=== PATIENT | male | born 1965 | race African-American/Black ===

== ENCOUNTER 2018-07-22 07:55 | Emergency (ER) | payer BC, OTHER ==
[2018-07-22] MEDS ORDERED: NA CHLORIDE 0.9% 1,000 ML ONE (08:28)
--- NOTE | 2018-07-22 08:41 | RAD REPORT ---
EXAM DESCRIPTION: CT - Head Brain Wo Cont - 07/22/2018 8:29 am CLINICAL HISTORY: Headache;Dizziness COMPARISON: February 2017 TECHNIQUE: Computed axial tomography of the head was obtained. IV contrast was not requested. All CT scans are performed using dose optimization technique as appropriate and may include automated exposure control or mA/KV adjustment according to patient size. FINDINGS: An intracranial bleed is not seen . The ventricles are normal in caliber. No extra-axial fluid collection is noted. Moderate low-density areas within periventricular, deep and subcortical white matter likely represent ischemic changes secondary to small vessel disease. Fluid within the sinuses/ mastoids is not seen. IMPRESSION: No acute intracranial abnormality is seen. If patient's symptoms persist MRI of the bra in would be recommended.
[2018-07-22 09:15] LABS: Absolute Lymphocytes (CBC) 3.1 K/uL (0.7-4.9); Absolute Monocytes 0.7 K/uL (0.1-1.3); Absolute Neutrophil 6.5 K/uL (1.8-8.0); Basophils % 1.1 % (0-1.3); Eosinophils % 1.9 % (0-4.4); Hematocrit 41.3 % (39.6-49.0); Lymphocytes % 29.6 % (15.3-44.8); MCH 27.1 pg (27.0-35.0); MCV 79.9 fL (80-100); MPV 8.4 fL (7.6-11.3); Monocytes % 6.4 % (3.3-12.3); RBC Red Blood Cell Count 5.17 M/uL (4.33-5.43)
[2018-07-22 09:48] LABS: Potassium 4.3 mmol/L (3.5-5.1)
[2018-07-22 10:16] LABS: Urine Blood NEGATIVE (NEG); Urine Glucose 2+ (NEG); Urine Protein NEGATIVE (NEG); Urine pH 5.5 (5.0-7.0)
[2018-07-22 10:21] LABS: Urine Bacteria <20 /HPF (NONE SEEN); Urine RBC <5 /HPF (NONE SEEN)
[2018-07-22 10:22] LABS: Urine Culture Reflex Order NOT NEEDED
--- NOTE | 2018-07-22 10:26 | EDPHYS ---
Physician Documentation [facility] Name: Erick Bosch Age: 52 yrs Sex: Male : 1965 Arrival Date: 07/22/2018 Time: 07:55 Bed 13 Private MD: Valdez Nogueira ED Physician Ozzy Vora HPI: 07/22 08:09 This 52 yrs old Black Male presents to ER via Ambulatory with complaints of Headache, rn Vomiting. 08:09 The patient complains of pain to the right base of the skull. The patient describes the rn headache as aching. Onset: The symptoms/episode began/occurred 3 day(s) ago. Associated signs and symptoms: Pertinent positives: dizziness, Pertinent negatives: fever, neck stiffness, vision changes, vision loss, weakness, vertigo. Severity of symptoms: At its worst the pain was mild, in the emergency department the pain is unchanged. Headache History: The patient has had previous headaches and this one is similar to previous episodes. The symptoms are alleviated by nothing. the symptoms are aggravated by nothing. The patient has experienced similar episodes in the past. Reports began 2-3 days ago with nausea/vomiting/diarrhea, has now gotten better, this AM woke up with headache, radiates to right neck and shoulder, has hx of neck problems, reports felt lightheaded and dizzy. Seen at [facility] last week for dizziness, states workup didn't reveal anything. Glucose has been high recently, 200s-400s.. Historical: - Allergies: 08:08 No Known Allergies; ss - Home Meds: 08:08 lisinopril 40 mg Oral tab 1 tab once daily [Active]; levemir 50 units once daily ss [Active]; novalog flexpen 12 units before every meal [Active]; gabapentin 300 mg oral cap daily [Active]; atorvastatin 80 mg oral tab 1 tab once daily [Active]; chlorthalidone 25 mg Oral tab 1 tab once daily [Active]; - PMHx: 08:08 Diabetes - IDDM; Hypertension; High Cholesterol; ss - Immunization history:: Adult Immunizations up to date. - Social history:: Smoking status: Patient/guardian denies using tobacco. - Ebola Screening: : Patient denies exposure to infectious person Patient denies travel to an Ebola-affected area in the 21 days before illness onset. - Family history:: not pertinent. - Hospitalizations: : Patient was recently seen at. ROS: 08:09 Constitutional: Negative for fever, chills, and weight loss, Eyes: Negative for injury, rn pain, redness, and discharge, Neck: Negative for injury, and swelling, Cardiovascular: Negative for chest pain, palpitations, and edema, Respiratory: Negative for shortness of breath, cough, wheezing, and pleuritic chest pain, Abdomen/GI: Negative for abdominal pain, and constipation, MS/Extremity: Negative for injury and deformity, Skin: Negative for injury, rash, and discoloration, Neuro: Negative for weakness, numbness, tingling, and seizure. Exam: 08:09 Constitutional: This is a well developed, well nourished patient who is awake, alert, rn and in no acute distress. Head/Face: Normocephalic, atraumatic. Eyes: Pupils equal round and reactive to light, extra-ocular motions intact. Lids and lashes normal. Conjunctiva and sclera are non-icteric and not injected. Cornea within normal limits. Periorbital areas with no swelling, redness, or edema. Neck: Trachea midline, no thyromegaly or masses palpated, and no cervical lymphadenopathy. Supple, full range of motion without nuchal rigidity, or vertebral point tenderness. No Meningismus. Cardiovascular: tachycardic, regular, no murmur Respiratory: Lungs have equal breath sounds bilaterally, clear to auscultation and percussion. No rales, rhonchi or wheezes noted. No increased work of breathing, no retractions or nasal flaring. Abdomen/GI: Soft, non-tender, with normal bowel sounds. No distension or tympany. No guarding or rebound. No evidence of tenderness throughout. MS/ Extremity: Pulses equal, no cyanosis. Neurovascular intact. Full, normal range of motion. Equal circumference. Neuro: Awake and alert, GCS 15, oriented to person, place, time, and situation. Cranial nerves II-XII grossly intact. Motor strength 5/5 in all extremities. Sensory grossly intact. Cerebellar exam normal. Normal gait. Vital Signs: 08:08 BP 159 / 96; Pulse 106; Resp 18; Pulse Ox 99% on R/A; ph 08:08 BP 159 / 96; Pulse 109; Resp 15; Pulse Ox 99% on R/A; Weight 90.26 kg; Height 5 ft. 9 ss in. (175.26 cm); Pain 5/10; 08:10 Temp 97.9(O); ss 09:15 BP 115 / 75; Pulse 96; Resp 18; Pulse Ox 99% on R/A; ph 10:21 BP 138 / 93; Pulse 89; Resp 18; Pulse Ox 99% on R/A; ph 08:08 Body Mass Index 29.39 (90.26 kg, 175.26 cm) [place] Coma Score: 10:25 Eye Response: spontaneous(4). Verbal Response: oriented(5). Motor Response: obeys rn commands(6). Total: 15. MDM: 07:57 Patient medically screened. rn 10:25 Differential diagnosis: hypertensive headache, migraine, tension headache, vasomotor rn headache. Data reviewed: vital signs, nurses notes, lab test result(s), EKG, radiologic studies, CT scan, and as a result, I will discharge patient. Counseling: I had a detailed discussion with the patient and/or guardian regarding: the historical points, exam findings, and any diagnostic results supporting the discharge/admit diagnosis, lab results, radiology results, the need for outpatient follow up, to return to the emergency department if symptoms worsen or persist or if there are any questions or concerns that arise at home. Response to treatment: the patient's symptoms have mildly improved after treatment, and as a result, I will discharge patient. Special discussion: I discussed with the patient/guardian in detail that at this point there is no indication for admission to the hospital. It is understood, however, that if the symptoms persist or worsen the patient needs to return immediately for re-evaluation. 07/22 08:08 Order name: CBC with Diff; Complete Time: 09:33 rn 07/22 08:08 Order name: Basic Metabolic Panel; Complete Time: 09:51 rn 07/22 08:08 Order name: Urine Microscopic Only; Complete Time: 10:24 rn 07/22 08:08 Order name: Troponin (emerg Dept Use Only); Complete Time: 10:24 rn 07/22 08:08 Order name: CT Head Brain wo Cont; Complete Time: 08:46 rn 07/22 09:51 Order name: Urine Dipstick--Ancillary (enter results); Complete Time: 10:24 bd 07/22 08:08 Order name: IV Start; Complete Time: 09:10 rn 07/22 08:08 Order name: Urine Dipstick-Ancillary (obtain specimen); Complete Time: 10:21 rn 07/22 08:08 Order name: EKG; Complete Time: 08:09 rn 07/22 08:08 Order name: EKG - Nurse/Tech; Complete Time: 09:10 rn 07/22 08:08 Order name: Glucose Level; Complete Time: 09: rn Administered Medications: 09: Drug: NS 0.9% 1000 ml Route: IV; Rate: 1000 ml; Site: left antecubital; ph 10:53 Follow up: IV Status: Completed infusion; IV Intake: 1000ml ss Point of Care Testing: Blood Glucose: 09: Blood Glucose: 379 mg/dL; ph Ranges: Critical Glucose Levels:Adult <50 mg/dl or >400 mg/dl <40 mg/dl or >180 mg/dl Disposition: 07/22/18 10:26 Discharged to Home. Impression: Hyperglycemia, unspecified, Dizziness and giddiness, Dehydration. - Condition is Stable. - Discharge Instructions: Dehydration, Adult, Dizziness, Hyperglycemia. - Medication Reconciliation Form, Thank You Letter, Antibiotic Education, Prescription Opioid Use, Work release form form. - Follow up: Private Physician; When: As needed; Reason: Recheck today's complaints, Re-evaluation by your physician. - Problem is new. - Symptoms have improved. Signatures: Dispatcher [employer] EDMS Ozzy Vora MD MD rn Smirch, Shelby, RN RN ss Estella Ward RN RN ph Corrections: (The following items were deleted from the chart) 10:53 10:26 07/22/2018 10:26 Discharged to Home. Impression: Hyperglycemia, unspecified; ss Dizziness and giddiness; Dehydration. Condition is Stable. Forms are Medication Reconciliation Form, Thank You Letter, Antibiotic Education, Prescription Opioid Use. Follow up: Private Physician; When: As needed; Reason: Recheck today's complaints, Re-evaluation by your physician. Problem is new. Symptoms have improved. rn
--- NOTE | 2018-07-22 10:26 | ER ---
Nurse's Notes [facility] Name: Erick Bosch Age: 52 yrs Sex: Male : 1965 Arrival Date: 07/22/2018 Time: 07:55 Bed 13 Private MD: Valdez Nogueira Diagnosis: Hyperglycemia, unspecified;Dizziness and giddiness;Dehydration Presentation: 07/22 08:04 Presenting complaint: Patient states: N/V and loose stools x 3 days and R sided ss headache that began this morning with intermittent dizziness. Transition of care: patient was not received from another setting of care. Onset of symptoms was July 19, 2018. Risk Assessment: Do you want to hurt yourself or someone else? Patient reports no desire to harm self or others. Initial Sepsis Screen: Does the patient meet any 2 criteria? No. Patient's initial sepsis screen is negative. Does the patient have a suspected source of infection? No. Patient's initial sepsis screen is negative. Care prior to arrival: None. 08:04 Method Of Arrival: Ambulatory ss 08:04 Acuity: ARNOL 3 ss Historical: - Allergies: 08:08 No Known Allergies; ss - Home Meds: 08:08 lisinopril 40 mg Oral tab 1 tab once daily [Active]; levemir 50 units once daily ss [Active]; novalog flexpen 12 units before every meal [Active]; gabapentin 300 mg oral cap daily [Active]; atorvastatin 80 mg oral tab 1 tab once daily [Active]; chlorthalidone 25 mg Oral tab 1 tab once daily [Active]; - PMHx: 08:08 Diabetes - IDDM; Hypertension; High Cholesterol; ss - Immunization history:: Adult Immunizations up to date. - Social history:: Smoking status: Patient/guardian denies using tobacco. - Ebola Screening: : Patient denies exposure to infectious person Patient denies travel to an Ebola-affected area in the 21 days before illness onset. - Family history:: not pertinent. - Hospitalizations: : Patient was recently seen at. Screenin:10 Abuse screen: Denies threats or abuse. Denies injuries from another. Nutritional ph screening: No deficits noted. Tuberculosis screening: No symptoms or risk factors identified. Fall Risk None identified. Assessment: 08:15 General: Appears in no apparent distress. comfortable, well groomed, Behavior is calm, ph cooperative, appropriate for age, Denies fever. Pain: Denies pain. Neuro: Level of Consciousness is awake, alert, obeys commands, Oriented to person, place, time, situation, Filling Hand are equal bilaterally Moves all extremities. Full function Gait is steady, Speech is normal, Facial symmetry appears normal, Reports dizziness, headache in right occipital area, Denies weakness blurred vision. Cardiovascular: Reports lightheadedness, Denies chest pain, nausea, shortness of breath, Capillary refill < 3 seconds Patient's skin is warm and dry. Respiratory: Airway is patent Respiratory effort is even, unlabored. GI: Reports N/V/D for 3 days prior to visit, reports normal BM this morning Patient currently denies nausea. : No signs and/or symptoms were reported regarding the genitourinary system. Derm: Skin is intact, is healthy with good turgor, Skin is pink, warm \T\ dry. Musculoskeletal: Circulation, motion, and sensation intact. Range of motion: intact in all extremities. 09:17 Reassessment: Patient appears in no apparent distress at this time. Patient and/or ph family updated on plan of care and expected duration. Pain level reassessed. Patient is alert, oriented x 3, equal unlabored respirations, skin warm/dry/pink. Pt resting quietly, denies pain or nausea at this time. 09:43 Reassessment: Patient appears in no apparent distress at this time. Patient and/or ph family updated on plan of care and expected duration. Pain level reassessed. Patient is alert, oriented x 3, equal unlabored respirations, skin warm/dry/pink. Pt ambulated to restroom, gait steady, denies dizziness or SOB, urine sample obtained. 10:23 Reassessment: Patient appears in no apparent distress at this time. Patient and/or ph family updated on plan of care and expected duration. Pain level reassessed. Patient is alert, oriented x 3, equal unlabored respirations, skin warm/dry/pink. Pt resting quietly, awaiting lab results. Vital Signs: 08:08 BP 159 / 96; Pulse 106; Resp 18; Pulse Ox 99% on R/A; ph 08:08 BP 159 / 96; Pulse 109; Resp 15; Pulse Ox 99% on R/A; Weight 90.26 kg; Height 5 ft. 9 ss in. (175.26 cm); Pain 5/10; 08:10 Temp 97.9(O); ss 09:15 BP 115 / 75; Pulse 96; Resp 18; Pulse Ox 99% on R/A; ph 10:21 BP 138 / 93; Pulse 89; Resp 18; Pulse Ox 99% on R/A; ph 08:08 Body Mass Index 29.39 (90.26 kg, 175.26 cm) ss [place] Coma Score: 10:25 Eye Response: spontaneous(4). Verbal Response: oriented(5). Motor Response: obeys rn commands(6). Total: 15. ED Course: 07:55 Patient arrived in ED. ds1 07:55 Valdez Nogueira MD is Private Physician. ds1 07:57 Ozzy Vora MD is Attending Physician. rn 08:05 Estella Ward RN is Primary Nurse. ph 08:05 Triage completed. ss 08:08 Arm band placed on right wrist. ss 08:[address] jg6 08:28 CT completed. Patient tolerated procedure well. Patient moved to CT via wheelchair. sj Patient moved back from CT. 08:29 CT Head Brain wo Cont In Process Unspecified. EDMS 09:00 Initial lab(s) drawn, by me, sent to lab. Inserted saline lock: 20 gauge in left ph antecubital area, using aseptic technique. Blood collected. 09:14 Patient has correct armband on for positive identification. Bed in low position. Call ph light in reach. Side rails up X 1. personnel monitor on. Pulse ox on. NIBP on. 10:22 No provider procedures requiring assistance completed. ph 10:53 IV discontinued, intact, bleeding controlled, No redness/swelling at site. Pressure ss dressing applied. Administered Medications: 09:10 Drug: NS 0.9% 1000 ml Route: IV; Rate: 1000 ml; Site: left antecubital; ph 10:53 Follow up: IV Status: Completed infusion; IV Intake: 1000ml Point of Care Testing: Blood Glucose: 09:06 Blood Glucose: 379 mg/dL; ph Ranges: Intake: 10:53 IV: 1000ml; Total: 1000ml. ss Outcome: 10:26 Discharge ordered by . rn 10:53 Discharged to home ambulatory. ss 10:53 Condition: good 10:53 Discharge instructions given to patient, Instructed on discharge instructions, follow up and referral plans. Demonstrated understanding of instructions, follow-up care, medications. 10:53 Patient left the ED. ss Signatures: Dispatcher [employer] Loly De Leon Demi ds1 Ozzy Vora MD MD rn Smirch, Shelby, RN RN ss Estella Ward RN RN marge Yee, Keshia [email or web address]
[2018-07-22 10:57] VITALS: O2SAT 99
[2018-07-22 10:58] VITALS: TEMP 97.9
[2018-07-22 11:01] VITALS: BP 138/93
--- NOTE | 2018-07-22 16:17 | EKG ---
Test Date: 2018-07-22 Test Time: 08:18:35 Road Service Locksmith: MICHAEL MEASUREMENT RESULTS: Intervals: Rate: 102 [place]: 176 QRSD: 80 QT: 372 QTc: 484 [place]: P: 57 [place]: 176 QRS: 26 T: -5 INTERPRETIVE STATEMENTS: Sinus tachycardia Inferior infarct, age undetermined Abnormal ECG Compared to ECG 10/07/2016 05:37:38 Myocardial infarct finding now present Sinus rhythm no longer present T-wave abnormality no longer present Electronically Signed On 07-22-18 16:14:34 CDT by Rory Ford
== END 2018-07-22 10:53 | disposition home or self-care (01) ==
LOC: ER 07:55
DX: R73.9 Hyperglycemia, unspecified (principal); R42 Dizziness and giddiness; E86.0 Dehydration; E11.8 Type 2 diabetes mellitus with unspecified complications; I10 Essential (primary) hypertension; E78.5 Hyperlipidemia, unspecified
CPT/HCPCS: 36415; 70450; 80048; 81003; 81015; 82962; 84484; 85025; 93005; 96360; 96361; 99285; J7030

== ENCOUNTER 2019-11-12 18:55 | Observation (INO) | payer BC ==
[2019-11-12 20:00] LABS: Absolute Lymphocytes (CBC) 2.9 K/uL (0.7-4.9); Basophils % 1.5 % (0-1.3); Hematocrit 42.1 % (39.6-49.0); MPV 8.6 fL (7.6-11.3); RBC Red Blood Cell Count 5.15 M/uL (4.33-5.43)
[2019-11-12 20:01] LABS: Protime INR 1.02
[2019-11-12 20:16] LABS: ALT/SGPT 35 U/L (12-78); AST/SGOT 23 U/L (15-37); Albumin 3.9 g/dL (3.4-5.0); Alkaline Phosphatase 93 U/L (45-117); BUN Blood Urea Nitrogen 17 mg/dL (7-18); Bicarbonate 29 mmol/L (21-32); Bilirubin Direct 0.2 mg/dL (0-0.2); Bilirubin Total 1.1 mg/dL (0.2-1.0); Glucose Level 221 mg/dL (74-106); Magnesium 1.9 mg/dL (1.8-2.4); NT PRO-BNP 25 pg/mL (<125); Potassium 3.8 mmol/L (3.5-5.1); Protein, Total 7.8 g/dL (6.4-8.2); Sodium Level 141 mmol/L (136-145); Troponin (Emerg Dept Use Only) < 0.02 ng/mL (0.0-0.045)
--- NOTE | 2019-11-12 20:40 | ER ---
Nurse's Notes [facility] Name: Erick Bosch Age: 54 yrs Sex: Male : 1965 Arrival Date: 11/12/2019 Time: 19:00 Bed 7 Private MD: Diagnosis: Other chest pain;Essential (primary) hypertension;Type 1 diabetes mellitus Presentation: 11/12 19:13 Presenting complaint: Patient states: L sided CP that started approx 1700 this evening. iw Reports pain is a tight feeling rated 2/10 at this time. Denies any other symptoms. Transition of care: patient was not received from another setting of care. Onset of symptoms was November 12, 2019 at 17:00. Risk Assessment: Do you want to hurt yourself or someone else? Patient reports no desire to harm self or others. Initial Sepsis Screen: Does the patient meet any 2 criteria? HR > 90 bpm. Does the patient have a suspected source of infection? No. Patient's initial sepsis screen is negative. Care prior to arrival: None. 19:13 Method Of Arrival: Ambulatory iw 19:13 Acuity: ARNOL 2 iw 19:36 Note Patient states episode of chest pain while at work, EMS called, given Nitro lp1 tablets x2 and ASA x1, that gave some relief. Triage Assessment: 19:20 General: Appears in no apparent distress. comfortable, Behavior is calm, cooperative, aa1 appropriate for age. Historical: - Allergies: 19:20 No Known Allergies; aa1 - Home Meds: 19:20 lisinopril 40 mg Oral tab 1 tab once daily [Active]; levemir 50 units once daily aa1 [Active]; novalog flexpen 12 units before every meal [Active]; gabapentin 300 mg Oral cap daily [Active]; atorvastatin 80 mg Oral tab 1 tab once daily [Active]; chlorthalidone 25 mg Oral tab 1 tab once daily [Active]; Victoza 2-Henry subcutaneous subcutaneous [Active]; mirtazapine 15 mg Oral tab 1 tab once daily [Active]; - PMHx: 19:20 Diabetes - IDDM; High Cholesterol; Hypertension; neck pain; aa1 - PSHx: 19:20 thyroidectomy; aa1 - Immunization history:: Flu vaccine is up to date. - Social history:: Smoking status: Patient/guardian denies using tobacco. - Ebola Screening: : No symptoms or risks identified at this time. - Family history:: not pertinent. Screenin:32 Abuse screen: Denies threats or abuse. Denies injuries from another. Nutritional lp1 screening: No deficits noted. Tuberculosis screening: No symptoms or risk factors identified. Fall Risk None identified. Assessment: 19:37 General: Appears in no apparent distress. Behavior is calm, cooperative, appropriate lp1 for age. Pain: Complains of pain in chest Pain does not radiate. Quality of pain is described as pressure, Pain began suddenly, while at work. Neuro: Level of Consciousness is awake, alert, obeys commands, Oriented to person, place, time, situation. Cardiovascular: Reports chest pain, shortness of breath, Patient's skin is warm and dry. Rhythm is sinus rhythm. Respiratory: Respiratory effort is even, unlabored, Breath sounds are clear bilaterally. GI: No signs and/or symptoms were reported involving the gastrointestinal system. : No signs and/or symptoms were reported regarding the genitourinary system. EENT: No signs and/or symptoms were reported regarding the EENT system. Derm: Skin is intact, Skin is dry, Skin is normal. Musculoskeletal: Circulation, motion, and sensation intact. 20:30 Reassessment: Patient appears in no apparent distress at this time. No changes from lp1 previously documented assessment. 21:25 Reassessment: Patient appears in no apparent distress at this time. Patient and/or lp1 family updated on plan of care and expected duration. Pain level reassessed. Patient is alert, oriented x 3, equal unlabored respirations, skin warm/dry/pink. Patient aware of pending admission. 21:30 Reassessment: Attempted to call report, nurse unavailable, will call back; Patient lp1 given sandwich at this time. Vital Signs: 19:20 BP 157 / 84; Pulse 101; Resp 18; Temp 97.8; Pulse Ox 98% on R/A; Weight 91.17 kg; aa1 Height 5 ft. 9 in. (175.26 cm); Pain 2/10; 20:00 BP 148 / 93; Pulse 98; Resp 20; Pulse Ox 99% on R/A; lp1 20:30 BP 163 / 92; Pulse 97; Resp 18; Pulse Ox 100% on R/A; lp1 21:24 BP 145 / 97; Pulse 77; Resp 17; Pulse Ox 100% on R/A; lp1 21:38 BP 136 / 97; Pulse 69; Resp 19; Pulse Ox 99% on R/A; Pain 0/10; lp1 19:20 Body Mass Index 29.68 (91.17 kg, 175.26 cm) aa1 ED Course: 19:00 Patient arrived in ED. mr 19:15 Triage completed. iw 19:16 Seven Cotton MD is Attending Physician. faizan 19:20 Arm band placed on right wrist. aa1 19:30 Pina Tipton, ALLI is Primary Nurse. lp1 19:30 Cardiac pain workup initiated per nursing protocol. lp1 19:32 Patient has correct armband on for positive identification. monitor technician on. Pulse lp1 ox on. NIBP on. 19:32 Patient maintains SpO2 saturation greater than 95% on room air. lp1 19:40 XRAY Chest (1 view) In Process Unspecified. EDMS 19:40 Inserted saline lock: 20 gauge in right antecubital area, using aseptic technique. lp1 Blood collected. 19:40 Initial lab(s) drawn, by me, sent to lab. lp1 20:38 Melly Garrett MD is Hospitalizing Provider. faizan 21:25 No provider procedures requiring assistance completed. Patient admitted, IV remains in lp1 place. Administered Medications: 20:39 Not Given (Given to patient by EMS MINING TEACHER, per patient ): Aspirin 162 mg PO once lp1 21:05 Drug: Lopressor (metoprolol TARTRATE) 50 mg Route: PO; lp1 21:34 Follow up: Response: No adverse reaction lp1 21:10 Drug: Pepcid 20 mg Route: IVP; Site: right antecubital; lp1 21:33 Follow up: Response: No adverse reaction lp1 21:10 Drug: Lovenox 1 mg/kg Route: Sub-Q; Site: right lower abdomen; lp1 21:34 Follow up: Response: No adverse reaction lp1 21:10 Drug: Lopressor 2.5 mg Route: IVP; Site: right antecubital; lp1 21:38 Follow up: Response: No adverse reaction lp1 21:38 Drug: Lopressor 2.5 mg Route: IVP; Site: right antecubital; lp1 22:01 Follow up: Response: No adverse reaction lp1 Outcome: 20:39 Decision to Hospitalize by Provider. faizan 21:25 Condition: stable lp1 21:25 Instructed on the need for admit. 22:01 Admitted to Tele accompanied by tech, room 407, with chart, Report called to ALLI Khan lp1 22:15 Patient left the ED. lp1 Signatures: Dispatcher [employer] EDMS Polina Prasad RN RN aa1 Seven Cotton MD MD cha Rivera, Annei mr Marybeth Celeste RN RN iw Pena, Laura, RN RN lp1 Corrections: (The following items were deleted from the chart) 22:28 22:27 Patient left the ED. lp1 lp1
--- NOTE | 2019-11-12 20:40 | EDPHYS ---
Physician Documentation [facility] Name: Erick Bosch Age: 54 yrs Sex: Male : 1965 Arrival Date: 11/12/2019 Time: 19:00 Bed 7 Private MD: ED Physician Seven Cotton HPI: 11/12 20:36 This 54 yrs old Black Male presents to ER via Ambulatory with complaints of Chest Pain. faizan 20:36 The patient or guardian reports chest pain that is located primarily in the substernal faizan area. Onset: just prior to arrival, 1 hour(s) ago. The pain does not radiate. Associated signs and symptoms: The patient has no apparent associated signs or symptoms. The chest pain is described as a pressure, squeezing. Duration: The patient or guardian reports a single episode, that is still ongoing, but improving. Severity of pain: At its worst the pain was moderate in the emergency department the pain has improved moderately. The patient has not experienced similar symptoms in the past. Historical: - Allergies: 19:20 No Known Allergies; aa1 - Home Meds: 19:20 lisinopril 40 mg Oral tab 1 tab once daily [Active]; levemir 50 units once daily aa1 [Active]; novalog flexpen 12 units before every meal [Active]; gabapentin 300 mg Oral cap daily [Active]; atorvastatin 80 mg Oral tab 1 tab once daily [Active]; chlorthalidone 25 mg Oral tab 1 tab once daily [Active]; Victoza 2-Henry subcutaneous subcutaneous [Active]; mirtazapine 15 mg Oral tab 1 tab once daily [Active]; - PMHx: 19:20 Diabetes - IDDM; High Cholesterol; Hypertension; neck pain; aa1 - PSHx: 19:20 thyroidectomy; aa1 - Immunization history:: Flu vaccine is up to date. - Social history:: Smoking status: Patient/guardian denies using tobacco. - Ebola Screening: : No symptoms or risks identified at this time. - Family history:: not pertinent. ROS: 20:36 Constitutional: Negative for fever, chills, and weight loss, Eyes: Negative for injury, faizan pain, redness, and discharge, ENT: Negative for injury, pain, and discharge, Neck: Negative for injury, pain, and swelling, Respiratory: Negative for shortness of breath, cough, wheezing, and pleuritic chest pain, Abdomen/GI: Negative for abdominal pain, nausea, vomiting, diarrhea, and constipation, Back: Negative for injury and pain, : Negative for injury, bleeding, discharge, and swelling, MS/Extremity: Negative for injury and deformity, Skin: Negative for injury, rash, and discoloration, Neuro: Negative for headache, weakness, numbness, tingling, and seizure, Psych: Negative for depression, anxiety, suicide ideation, homicidal ideation, and hallucinations, Allergy/Immunology: Negative for hives, rash, and allergies, Endocrine: Negative for neck swelling, polydipsia, polyuria, polyphagia, and marked weight changes, Hematologic/Lymphatic: Negative for swollen nodes, abnormal bleeding, and unusual bruising. 20:36 Cardiovascular: Positive for chest pain, of the chest. Exam: 20:36 Constitutional: This is a well developed, well nourished patient who is awake, alert, faizan and in no acute distress. Head/Face: Normocephalic, atraumatic. Eyes: Pupils equal round and reactive to light, extra-ocular motions intact. Lids and lashes normal. Conjunctiva and sclera are non-icteric and not injected. Cornea within normal limits. Periorbital areas with no swelling, redness, or edema. ENT: Nares patent. No nasal discharge, no septal abnormalities noted. Tympanic membranes are normal and external auditory canals are clear. Oropharynx with no redness, swelling, or masses, exudates, or evidence of obstruction, uvula midline. Mucous membranes moist. Neck: Trachea midline, no thyromegaly or masses palpated, and no cervical lymphadenopathy. Supple, full range of motion without nuchal rigidity, or vertebral point tenderness. No Meningismus. Chest/axilla: Normal chest wall appearance and motion. Nontender with no deformity. No lesions are appreciated. Cardiovascular: Regular rate and rhythm with a normal S1 and S2. No gallops, murmurs, or rubs. Normal PMI, no JVD. No pulse deficits. Respiratory: Lungs have equal breath sounds bilaterally, clear to auscultation and percussion. No rales, rhonchi or wheezes noted. No increased work of breathing, no retractions or nasal flaring. Abdomen/GI: Soft, non-tender, with normal bowel sounds. No distension or tympany. No guarding or rebound. No evidence of tenderness throughout. Back: No spinal tenderness. No costovertebral tenderness. Full range of motion. Skin: Warm, dry with normal turgor. Normal color with no rashes, no lesions, and no evidence of cellulitis. MS/ Extremity: Pulses equal, no cyanosis. Neurovascular intact. Full, normal range of motion. Neuro: Awake and alert, GCS 15, oriented to person, place, time, and situation. Cranial nerves II-XII grossly intact. Motor strength 5/5 in all extremities. Sensory grossly intact. Cerebellar exam normal. Normal gait. Psych: Awake, alert, with orientation to person, place and time. Behavior, mood, and affect are within normal limits. Vital Signs: 19:20 BP 157 / 84; Pulse 101; Resp 18; Temp 97.8; Pulse Ox 98% on R/A; Weight 91.17 kg; aa1 Height 5 ft. 9 in. (175.26 cm); Pain 2/10; 20:00 BP 148 / 93; Pulse 98; Resp 20; Pulse Ox 99% on R/A; lp1 20:30 BP 163 / 92; Pulse 97; Resp 18; Pulse Ox 100% on R/A; lp1 21:24 BP 145 / 97; Pulse 77; Resp 17; Pulse Ox 100% on R/A; lp1 21:38 BP 136 / 97; Pulse 69; Resp 19; Pulse Ox 99% on R/A; Pain 0/10; lp1 19:20 Body Mass Index 29.68 (91.17 kg, 175.26 cm) aa1 MDM: 19:16 Patient medically screened. [facility] 20:37 Data reviewed: vital signs, nurses notes, lab test result(s), EKG, radiologic studies, faizan plain films. 11/12 19:31 Order name: Basic Metabolic Panel; Complete Time: 20:31 lp1 11/12 19:31 Order name: CBC with Diff; Complete Time: 20:31 lp1 11/12 19:31 Order name: LFT's; Complete Time: 20:31 lp1 11/12 19:31 Order name: Magnesium; Complete Time: 20:31 lp1 11/12 19:31 Order name: NT PRO-BNP; Complete Time: 20:31 lp1 11/12 19:31 Order name: PT-INR; Complete Time: 20:31 lp1 11/12 19:31 Order name: Troponin (emerg Dept Use Only); Complete Time: 20:31 lp1 11/12 19:31 Order name: XRAY Chest (1 view); Complete Time: 22:07 lp1 11/12 21:20 Order name: Lipid Profile EDTX 11/12 21:20 Order name: Lipid Profile EDTX 11/12 21:20 Order name: Troponin I EDTX 11/12 21:20 Order name: Troponin I EDTX 11/12 21:20 Order name: Troponin I EDTX 11/12 19:31 Order name: EKG; Complete Time: 19:32 lp1 11/12 19:31 Order name: Cardiac monitoring; Complete Time: 19:31 lp1 11/12 19:31 Order name: EKG - Nurse/Tech; Complete Time: 19:31 lp1 11/12 19:31 Order name: IV Saline Lock; Complete Time: 20:38 lp1 11/12 19:31 Order name: Labs collected and sent; Complete Time: 20:38 lp1 11/12 19:31 Order name: O2 Per Protocol; Complete Time: 19:31 lp1 11/12 19:31 Order name: O2 Sat Monitoring; Complete Time: 19:31 lp1 11/12 21:20 Order name: CONS Physician Consult EDTX 11/12 21:20 Order name: Heart Healthy EDTX 11/12 21:20 Order name: EKG Electrocardiogram EDTX 11/12 21:20 Order name: EKG Electrocardiogram EDTX Administered Medications: 20:39 Not Given (Given to patient by EMS EQUITY SALES ASSISTANT, per patient ): Aspirin 162 mg PO once lp1 21:05 Drug: Lopressor (metoprolol TARTRATE) 50 mg Route: PO; lp1 21:34 Follow up: Response: No adverse reaction lp1 21:10 Drug: Pepcid 20 mg Route: IVP; Site: right antecubital; lp1 21:33 Follow up: Response: No adverse reaction lp1 21:10 Drug: Lovenox 1 mg/kg Route: Sub-Q; Site: right lower abdomen; lp1 21:34 Follow up: Response: No adverse reaction lp1 21:10 Drug: Lopressor 2.5 mg Route: IVP; Site: right antecubital; lp1 21:38 Follow up: Response: No adverse reaction lp1 21:38 Drug: Lopressor 2.5 mg Route: IVP; Site: right antecubital; lp1 22:01 Follow up: Response: No adverse reaction lp1 Disposition: 11/12/19 20:39 Hospitalization ordered by Melly Garrett for Inpatient Admission. Preliminary diagnosis are Other chest pain, Essential (primary) hypertension, Type 1 diabetes mellitus. - Bed requested for Telemetry/MedSurg (Inpatient). - Status is Inpatient Admission. lp1 - Condition is Fair. - Problem is new. - Symptoms have improved. UTI on Admission? No Signatures: Dispatcher [employer] EDMS Yasmine De Anda RN RN Polina Prasad RN RN aa1 Seven Cotton MD MD cha Pena, Laura, RN RN lp1 Corrections: (The following items were deleted from the chart) 21:25 20:39 Hospitalization Ordered by Melly Garrett MD for Inpatient Admission. Preliminary diagnosis is Other chest pain; Essential (primary) hypertension; Type 1 diabetes mellitus. Bed requested for Telemetry/MedSurg (Inpatient). Status is Inpatient Admission. Condition is Fair. Problem is new. Symptoms have improved. UTI on Admission? No. faizan 21:47 21:25 11/12/2019 20:39 Hospitalization Ordered by Melly Garrett MD for Inpatient Admission. Preliminary diagnosis is Other chest pain; Essential (primary) hypertension; Type 1 diabetes mellitus. Bed requested for Telemetry/MedSurg (Inpatient). Status is Inpatient Admission. Condition is Fair. Problem is new. Symptoms have improved. UTI on Admission? No. may 22:27 21:47 11/12/2019 20:39 Hospitalization Ordered by Melly Garrett MD for Inpatient lp1 Admission. Preliminary diagnosis is Other chest pain; Essential (primary) hypertension; Type 1 diabetes mellitus. Bed requested for Telemetry/MedSurg (Inpatient). Status is Inpatient Admission. Condition is Fair. Problem is new. Symptoms have improved. UTI on Admission? No. may
[2019-11-12] MEDS ORDERED: METOPROLOL TAR 50 MG TAB ONE (20:52)
[2019-11-12] MEDS ORDERED: ENOXAPARIN 100 MG/ML SYR SQ ONE (20:53)
[2019-11-12] MEDS ORDERED: FAMOTIDINE 20 MG/2 ML VIAL IV ONE (20:53)
[2019-11-12] MEDS ORDERED: METOPROLOL TARTRATE 5 MG/5 ML INJ IV ONE (20:53)
--- NOTE | 2019-11-12 20:57 | RAD REPORT ---
EXAM DESCRIPTION: Vickie Single View11/12/2019 7:42 pm CLINICAL HISTORY: Chest pain COMPARISON: 2017 FINDINGS: The lungs appear clear of acute infiltrate. The heart is normal size IMPRESSION: No acute abnormalities displayed
[2019-11-12] MEDS ORDERED: MORPHINE 4 MG/ML SYR IV PRN (21:16)
[2019-11-12] MEDS ORDERED: ACETAMINOPHEN 500 MG TAB PO PRN (21:16)
[2019-11-12] MEDS ORDERED: ALPRAZOLAM 0.25 MG TABLET PO PRN (21:16)
[2019-11-12] MEDS ORDERED: [UNRECOGNIZED DRUG - OTHER] PO PRN (21:19)
[2019-11-12] MEDS ORDERED: ACETAMINOPHEN PO PRN (21:19)
[2019-11-12] MEDS ORDERED: TAMSULOSIN 0.4 MG SR CAP PO PRN (21:19)
[2019-11-12] MEDS ORDERED: OXYBUTYNIN CHLORIDE 5 MG TAB PO PRN (21:19)
[2019-11-12] MEDS ORDERED: CYCLOBENZAPRINE 10 MG TAB PO PRN (21:19)
[2019-11-12] MEDS ORDERED: HYDROCODONE BIT PO PRN (21:19)
[2019-11-12 23:54] VITALS: O2SAT 99
[2019-11-13 02:04] VITALS: BMI 29.1
[2019-11-13] MEDS: METOPROLOL TAR 50 MG TAB PO SCH ×2 (06:00→08:59)
[2019-11-13] MEDS ORDERED: GLIPIZIDE S.A. 5 MG TAB PO SCH (08:00)
--- NOTE | 2019-11-13 08:05 | P.HP ---
Certification for Inpatient Patient admitted to: Observation With expected LOS: <2 Midnights Patient will require the following post-hospital care: None Practitioner: I am a practitioner with admitting privileges, knowledge of patient current condition, hospital course, and medical plan of care. Services: Services provided to patient in accordance with Admission requirements found in Title 42 Section 412.3 of the Code of Federal Regulations Patient History Date of Service: 11/12/19 Reason for admission: CHEST PAIN RULE OUT ACUTE CORONARY SYNDROME History of Present Illness: Patient is a 54-year-old gentleman who came to the hospital with chest discomfort. Pain was in the mid sternal region. The chest pain is described as a pressure, squeezing. Patient has a history of hypertension, diabetes, and he has a family history of heart disease. His father at 54 with Coronary artery disease. He came into the hospital to be evaluated because of his persistent chest discomfort. Patient currently is feeling better. He states that his chest pain is improved. He still has some unusual feelings in the sternal region. He will be evaluated for coronary artery disease. Allergies No Known Allergies Allergy (Unverified 06/22/12 16:54) Home Medications: Atorvastatin Calcium [Lipitor] 80 mg PO BEDTIME 11/13/19 Chlorthalidone [Hygroton 25mg Tab*] 0.5 tab PO DAILY 11/13/19 Gabapentin 300 mg PO DAILY 11/13/19 Insulin Aspart [Novolog Flexpen] 12 units SQ DAILY 11/13/19 Insulin Detemir [Levemir Flextouch] 50 units SQ DAILY 11/13/19 Liraglutide [Victoza 2-Henry] 1.6 ml SQ TID 11/13/19 Lisinopril [Zestril] 40 mg PO DAILY 11/13/19 Mirtazapine 15 mg PO BEDTIME 11/13/19 - Past Medical/Surgical History Has patient received pneumonia vaccine in the past: No Diabetic: Yes -: hypertension -: hyperlipidemia -: thyroidectomy - Family History Father Medical History: Cancer Mother Medical History: Heart disease - Social History Smoking Status: Never smoker Alcohol use: No CD- Drugs: No Caffeine use: Yes Place of Residence: Home Review of Systems 10-point ROS is otherwise unremarkable Physical Examination - Vital Signs Temperature: 97.0 F Blood Pressure: 120/70 Pulse: 65 Respirations: 17 Pulse Ox (%): 99 - Physical Exam General: Alert, In no apparent distress, Oriented x3 HEENT: Atraumatic, PERRLA, Mucous membr. moist/pink, EOMI, Sclerae nonicteric Neck: Supple, 2+ carotid pulse no bruit, No LAD, Without JVD or thyroid abnormality Respiratory: Clear to auscultation bilaterally, Normal air movement Cardiovascular: Regular rate/rhythm, Normal S1 S2, No murmurs Gastrointestinal: Normal bowel sounds, Soft and benign, Non-distended, No tenderness Musculoskeletal: No clubbing, No swelling, No tenderness Integumentary: No rashes Neurological: Normal gait, Normal speech, Normal strength at 5/5 x4 extr, Normal tone, Sensation intact, Cranial nerves 3-12 intact, Normal affect Lymphatics: No axilla or inguinal lymphadenopathy - Studies Laboratory Data (last 24 hrs) 11/12/19 19:40: PT 12.0, INR 1.02 11/12/19 19:40: WBC 12.4 H, Hgb 13.7, Hct 42.1, Plt Count 256 11/12/19 19:40: Sodium 141, Potassium 3.8, BUN 17, Creatinine 1.42 H, Glucose 221 H, Magnesium 1.9, Total Bilirubin 1.1 H, AST 23, ALT 35, Alkaline Phosphatase 93 Assessment & Plan - Problems (Diagnosis) (1) Chest pain, rule out acute myocardial infarction Current Visit: Yes Status: Acute (2) Hypertension Current Visit: Yes Status: Acute (3) Type 1 diabetes mellitus Current Visit: Yes Status: Acute (4) Family history of heart disease Current Visit: Yes Status: Acute - Plan 1. Serial troponins and EKG 2. Cardiology consultation 3. Echocardiogram and stress test-says were in the weekend this may have to be done as an outpatient; will await Cardiology recommendation. 4. Anti-platelet therapy, anti coagulation, beta-tony, statin, and O2 as needed 5. IV morphine for pain 6. Nitro p.r.n. 7. Strict blood pressure and blood sugar control 8. Lipid profile in a.m. 9. GI and DVT prophylaxis Discharge Plan: Home Plan to discharge in: 48 Hours - Advance Directives Does patient have a Living Will: No Does patient have a Durable POA for Healthcare: No - Code Status/Comfort Care Code Status Assessed: Yes Code Status: Full Code Critical Care: No Time Spent Managing PTS Care (In Minutes): 45
[2019-11-13] MEDS ORDERED: ENOXAPARIN 40 MG/0.4 ML SQ SCH (09:00)
[2019-11-13] MEDS ORDERED: ASPIRIN EC 81 MG TAB PO SCH (09:00)
--- NOTE | 2019-11-13 10:58 | P.PN ---
Subjective Date of Service: 11/13/19 Chief Complaint: CHEST PAIN RULE OUT ACUTE CORONARY SYNDROME Patient denies any chest pain at the moment. He denies shortness of breath 3 sets of troponins are negative. Physical Examination - Vital Signs Temperature: 97.0 F Blood Pressure: 120/70 Pulse: 65 Respirations: 17 Pulse Ox (%): 99 - Physical Exam General: Alert, In no apparent distress, Oriented x3 HEENT: Mucous membr. moist/pink Neck: Supple, JVD not distended Respiratory: Clear to auscultation bilaterally, Normal air movement Cardiovascular: No edema, Regular rate/rhythm, Normal S1 S2 Gastrointestinal: Soft and benign, Non-distended, No tenderness Musculoskeletal: No swelling Integumentary: No rashes, No erythema Neurological: Normal speech, Normal strength at 5/5 x4 extr - Studies Laboratory Data (last 24 hrs) 11/12/19 19:40: PT 12.0, INR 1.02 11/12/19 19:40: WBC 12.4 H, Hgb 13.7, Hct 42.1, Plt Count 256 11/12/19 19:40: Sodium 141, Potassium 3.8, BUN 17, Creatinine 1.42 H, Glucose 221 H, Magnesium 1.9, Total Bilirubin 1.1 H, AST 23, ALT 35, Alkaline Phosphatase 93 Assessment And Plan - Current Problems (Diagnosis) (1) Chest pain, rule out acute myocardial infarction Current Visit: Yes Status: Acute (2) Hypertension Current Visit: Yes Status: Acute (3) Type 1 diabetes mellitus Current Visit: Yes Status: Acute - Plan Patient has significant CAD risk factors. Troponin x3 is negative. Awaiting cardiology consult. Continue aspirin and metoprolol. LDL is below target with his home dose Lipitor. Continue Lipitor. Lisinopril Insulin sliding scale Consumer home dose Levemir insulin.
[2019-11-13] MEDS ORDERED: LIRAGLUTIDE SQ SCH ×2 (14:00→17:00)
[2019-11-13 14:24] LABS: Urine Appearance CLEAR; Urine Bilirubin NEGATIVE (NEG); Urine Blood NEGATIVE (NEG); Urine Color YELLOW; Urine Glucose 3+ (NEG); Urine Microscopic Reflex NO UMIC; Urine Protein NEGATIVE (NEG); Urine Urobilinogen 0.2 mg/dL (0.2-1.0); Urine pH 6.5 (5.0-7.0)
--- NOTE | 2019-11-13 15:32 | EKG ---
Test Date: 2019-11-12 Test Time: 19:12:17 Jewelry Appraiser: LINDA MEASUREMENT RESULTS: Intervals: Rate: 100 MN: 168 QRSD: 74 QT: 306 QTc: 394 [place]: P: 54 MN: 168 QRS: 15 T: -45 INTERPRETIVE STATEMENTS: Normal sinus rhythm Nonspecific T wave abnormality Abnormal ECG Compared to ECG 07/22/2018 08:18:35 T-wave abnormality now present Sinus tachycardia no longer present Myocardial infarct finding no longer present Electronically Signed On 11-13-19 15:30:55 TASSEL SNIPPER by Rory Ford
--- NOTE | 2019-11-13 16:21 | P.DS ---
Admission Date: 11/12/19 Discharge Date: 11/14/19 Disposition: ROUTINE DISCHARGE Discharge Condition: FAIR Reason for Admission: CHEST PAIN RULE OUT ACUTE CORONARY SYNDROME Consultations: Cardiology-Dr. Ford - Problems (1) Chest pain, rule out acute myocardial infarction Status: Acute (2) Hypertension Status: Acute (3) Type 1 diabetes mellitus Status: Acute Brief History of Present Illness: 54-year-old gentleman with a history of insulin-dependent diabetes, hypertension presented to the emergency department with a complaint of chest pain that has been present for several hours. He has significant risk factors including hypertension diabetes and significant family history. His initial troponin was negative in the ED. EKG reported sinus with nonspecific ST-T changes. Patient was placed under observation for ACS rule out. Hospital Course: Troponin trended came back negative. His blood pressure was elevated in the ED. The patient is on lisinopril and chlorthalidone for blood pressure at home. Metoprolol was added. The patient was normotensive during the hospital stay. He was seen and evaluated by cardiology-Dr. Ford who recommended outpatient follow up with him in the office for arrangement for lexiscan stress test and echocardiogram. ACS has been ruled out. His blood pressure has improved with the current medications. The patient is discharged to follow with Dr. Ford as outpatient. Vital Signs/Physical Exam: Temp Pulse Resp BP Pulse Ox 98.3 F 65 15 120/70 99 11/13/19 12:00 11/13/19 12:08 11/13/19 12:00 11/13/19 12:08 11/13/19 12:00 General: Alert, In no apparent distress HEENT: Mucous membr. moist/pink Neck: JVD not distended Respiratory: Clear to auscultation bilaterally, Normal air movement Cardiovascular: No edema, Regular rate/rhythm, Normal S1 S2 Gastrointestinal: Soft and benign, No tenderness Musculoskeletal: No swelling Integumentary: No rashes Neurological: Normal speech, Normal strength at 5/5 x4 extr Laboratory Data at Discharge: WBC 12.4 K/uL (4.3-10.9) H 11/12/19 19:40 Hgb 13.7 g/dL (13.6-17.9) 11/12/19 19:40 Hct 42.1 % (39.6-49.0) 11/12/19 19:40 Plt Count 256 K/uL (152-406) 11/12/19 19:40 PT 12.0 SECONDS (9.5-12.5) 11/12/19 19:40 INR 1.02 11/12/19 19:40 Sodium 141 mmol/L (136-145) 11/12/19 19:40 Potassium 3.8 mmol/L (3.5-5.1) 11/12/19 19:40 BUN 17 mg/dL (7-18) 11/12/19 19:40 Creatinine 1.42 mg/dL (0.55-1.3) H 11/12/19 19:40 Glucose 221 mg/dL (74-106) H 11/12/19 19:40 Magnesium 1.9 mg/dL (1.8-2.4) 11/12/19 19:40 Total Bilirubin 1.1 mg/dL (0.2-1.0) H 11/12/19 19:40 AST 23 U/L (15-37) 11/12/19 19:40 ALT 35 U/L (12-78) 11/12/19 19:40 Alkaline Phosphatase 93 U/L (45-117) 11/12/19 19:40 Troponin I < 0.02 ng/mL (0.0-0.045) 11/13/19 04:28 Triglycerides 252 mg/dL (<150) H 11/13/19 04:28 Cholesterol 144 mg/dL (<200) 11/13/19 04:28 HDL Cholesterol 35 mg/dL (40-60) L 11/13/19 04:28 Cholesterol/HDL Ratio 4.11 11/13/19 04:28 Home Medications: Atorvastatin Calcium [Lipitor] 80 mg PO BEDTIME 11/13/19 Chlorthalidone [Hygroton 25mg Tab*] 0.5 tab PO DAILY 11/13/19 Gabapentin 300 mg PO DAILY 11/13/19 Insulin Aspart [Novolog Flexpen] 12 units SQ DAILY 11/13/19 Insulin Detemir [Levemir Flextouch] 50 units SQ DAILY 11/13/19 Liraglutide [Victoza 2-Henry] 1.6 ml SQ TID 11/13/19 Lisinopril [Zestril] 40 mg PO DAILY 11/13/19 Metoprolol Tartrate [Lopressor*] 25 mg PO BID #60 tab 12/21/19 Mirtazapine 15 mg PO BEDTIME 11/13/19 New Medications: Metoprolol Tartrate [Lopressor*] 25 mg PO BID #60 tab Diet: ADA Activity: Ad maribeth Followup: Rory Ford MD [ACTIVE - CAN ADMIT] - 1-2 Weeks (call to schedule appointment)
[2019-11-13 18:13] VITALS: BP 138/83; TEMP 97.5
[2019-11-13] MEDS ORDERED: ATORVASTATIN 80 MG TAB PO SCH (21:00)
[2019-11-13] MEDS ORDERED: MIRTAZAPINE 15 MG TAB PO SCH (21:00)
--- NOTE | 2019-11-13 22:49 | CON ---
Date of Consultation: 11/13/2019 Reason For Consultation: Chest pain. History Of Present Illness: Mr. Bosch is a 54-year-old black male has a history of diabetes, hyperten delia, dyslipidemia, came in with what he described as soreness on the left anterior chest that is act ually still there, had lasted for almost 7 hours. Denied any nausea, vomiting, diaphoresis, or short ness of breath with it. He was very hypertensive at 208/108 when he was first noticing that he was h aving chest pain. He was sent to the hospital for further evaluation. Denied PND, orthopnea, pedal edema, palpitations, or syncope. By the time I saw him, he has already ruled out for an VT. His cre atinine was 1.42. His glucose was 382. EKG was nonspecific. Chest x-ray was negative. Troponin wa s negative. Past Medical History: As stated above. Allergies: NONE. Review of Systems: Negative. Social History: Negative. Family History: Negative. Medications: At home include: 1.Lipitor. 2.Hygroton. 3.Insulin. 4.Neurontin. 5.Victoza. 6.Lisinopril. The chart says that he is taking metoprolol, but the patient denied that. Physical Examination: Vital Signs: Stable. He was afebrile. He was in sinus rhythm. HEENT: Negative. Neck: Supple without any bruit, lymphadenopathy, JVD, or thyromegaly. Chest: Clear to auscultation and percussion. Cardiac: Revealed a regular rhythm and rate with an S4 gallops. No murmurs or rubs. Abdomen: Benign. Extremities: Revealed no clubbing, cyanosis, or edema. Diagnostic Data: As stated earlier. Impression And Plan: Atypical chest pain, lasted 7 hours, probably secondary to hypertension and may be some diastolic dysfunction. His EKG is unremarkable. His creatinine is 1.42. His troponin is ne gative. I think he definitely needs a cardiac workup including an echocardiogram and a Lexiscan. I suggested that he can go home and we can do that as an outpatient. A renal vascular Doppler may also be indicated considering his risk factors of diabetes, dyslipidemia, and severe hypertension that is poorly controlled. Regarding his blood pressure, I certainly will continue the lisinopril, but I wo uld definitely add a calcium channel tony such as Norvasc or metoprolol and continue the diuretic and we will see how he does with that. His creatinine is 1.42, that is significant for him. We will have to watch that and certainly if we can have to do any invasive studies down the road. His sugar needs to be better controlled as well. Case was discussed with Dr. Savage. ANOOP/TASHI Voice ID: [id number] Report ID: [id number]
[2019-11-14] MEDS ORDERED: lisinopriL 20 MG TAB PO SCH (09:00)
[2019-11-14] MEDS ORDERED: CHLORTHALIDONE 25 MG TAB PO SCH (09:00)
[2019-11-14] MEDS ORDERED: INSULIN DETEMIR 50 UNIT SQ SCH (09:00)
[2019-11-14] MEDS ORDERED: HOME MED 1 EA UNK (Lisinopril [Zestril] 40 MG) PO SCH (09:00)
[2019-11-14] MEDS ORDERED: GABAPENTIN 300 MG CAP PO SCH (09:00)
[2019-11-14] MEDS ORDERED: INSULIN GLARGINE 100 UNITS/ML SQ SCH (09:00)
== END 2019-11-13 17:31 | disposition home or self-care (01) ==
LOC: ER 18:55 → ERHOLD 21:16 → 4TH 22:14
PROVIDERS: ADMIT Hospitalist; ATTEND Hospitalist
DX: R07.9 Chest pain, unspecified (principal); I10 Essential (primary) hypertension; E10.9 Type 1 diabetes mellitus without complications; E78.5 Hyperlipidemia, unspecified
CPT/HCPCS: 93005; 85025; 80048; 36415; 83735; 85610; 80061; 82947 ×3; 80076; 81003; 84484 ×3; 83880; 71045; 96375; 96372; 96374; 99285; J1650 ×2; G0378 ×2; J1815

== ENCOUNTER 2022-01-11 13:45 | Emergency (ER) | payer BC ==
--- OUTSIDE RECORDS SUMMARY | 2022-01-11 13:50 | XMS REPORT | Continuity of Care Document ---
:1965 Author Organization [facility] t Address [facility] [place] [address] Care Team Providers Name Role Phone PEDRO PABLO Primary Care Physician Unavailable Sree DENNIS, K.H. Attending Clinician Salome RN Attending Clinician Unavailable GREEN Attending Clinician Unavailable Green INGREDIENT SCALER HELPER Attending Clinician Alva INGREDIENT SCALER HELPER, J Attending Clinician FRANNY Attending Clinician Unavailable Shabbir DENNIS Attending Clinician Franny INGREDIENT SCALER HELPER Attending Clinician JOVANNA Attending Clinician Unavailable Jovanna WASHINGTON Attending Clinician Only, Db Test Attending Clinician Unavailable Unknown Attending Clinician Unavailable SHABBIR Attending Clinician Unavailable Payers Payer Name Policy Type Policy Number Effective Date Expiration Date S ource Problems Condition Condition Condition Status Onset Resolution Last Treating Co mments Source Name Details Category Date Date Treatment Clinician Date Postural Postural Disease Active Unive rs dizziness dizziness 1- ity of with with 00:00: [place] presyncope presyncope 00 Fl dical Branch Allergies, Adverse Reactions, Alerts Allergy Allergy Status Severity Reaction(s) Onset Inactive Treating Comm ents Source Name Type Date Date Clinician METFORMI DRUG Active Diarrhea Univer s N INGREDI 06-28 ity of 00:00: [place] 00 [facility] Metformi Propensi Active Diarrhea Univ ers n ty to 06-28 ity of adverse 00:00: [place] reaction [address] [place] [address] Branch NO KNOWN Drug Active Univers ALLERGIE Class ity of S [facility] Social History Social Habit Start Date Stop Date Quantity Comments Source Exposure to Yes University of SARS-CoV-2 [place] [facility] (event) Branch Alcohol intake 2021-12-11 2021-12-11 Current University of 00:00:00 00:00:00 non-drinker of [facility] alcohol Branch (finding) Tobacco use and 2017-08-19 2017-08-19 Never used Universit y of exposure 00:00:00 00:00:00 [facility] Sex Ass[birth year] At [birth year] Universit y of 00:00:00 00:00:00 [facility] Smoking Status Start Date Stop Date Source Never smoker [facility] Medications Ordered Filled Start Stop Current Ordering Indication Dosage Frequency Signature Comments Components Source Medication Medication Date Date Medication? Clinician (SIG) Name Name AMLODIPINE Yes [id number] TAKE 1 U nivers 5 mg tablet 1- TABLET BY ity of 00:00: MOUTH [place] 00 EVERY DAY Medical Branch atorvastati Yes 80mg Take 80 mg Univers n 80 mg 1-07 by mouth ity of tablet 10:18: at [place] [address] bedtime. Medical Branch atorvastati Yes 80mg Take 80 mg Univers n 80 mg 1-07 by mouth ity of tablet 10:18: at [place] [address] bedtime. Medical Branch atorvastati Yes 80mg Take 80 mg Univers n 80 mg 1-07 by mouth ity of tablet 10:18: at [place] [address] bedtime. Medical Branch atorvastati Yes 80mg Take 80 mg Univers n 80 mg 1-07 by mouth ity of tablet 10:18: at [place] [address] bedtime. Medical Branch benzonatate Yes [id number] 200mg Take 2 Univers 100 mg 1-07 capsules ity of capsule 00:00: [place] (two[place] Medical times Branch daily as needed for Cough. guaiFENesin Yes [id number] 400mg Take 1 Univers 400 mg 1-07 tablet by ity of tablet 00:00: mouth [place] 00 every 4 Medical (four) Branch hours as needed for Cough. ondansetron Yes [id number] 4mg Take 1 Univers 4 mg 1-07 tablet by ity of disintegrat 00:00: mouth [place] ing tablet 00 every 8 Medica l (eight) Branch hours as needed for Nausea and Vomiting (N/V). benzonatate 2022-0 Yes [id number] 200mg Take 2 Univers 100 mg 1-07 capsules ity of capsule 00:00: [place] (two) Medical times Branch daily as needed for Cough. guaiFENesin 2022-0 Yes [id number] 400mg Take 1 Univers 400 mg 1-07 tablet by ity of tablet 00:00: mouth [place] 00 every 4 Medical (four) Branch hours as needed for Cough. ondansetron 2022-0 Yes [id number] 4mg Take 1 Univers 4 mg 1-07 tablet by ity of disintegrat 00:00: mouth [place] ing tablet 00 every 8 Medica l (eight) Branch hours as needed for Nausea and Vomiting (N/V). benzonatate 2022-0 Yes [id number] 200mg Take 2 Univers 100 mg 1-07 capsules ity of capsule 00:00: [place] 2 [place] (two) Medical times Branch daily as needed for Cough. guaiFENesin 2022-0 Yes [id number] 400mg Take 1 Univers 400 mg 1-07 tablet by ity of tablet 00:00: mouth [place] 00 every 4 Medical (four) Branch hours as needed for Cough. ondansetron 2022-0 Yes [id number] 4mg Take 1 Univers 4 mg 1-07 tablet by ity of disintegrat 00:00: mouth [place] ing tablet 00 every 8 Medica l (eight) Branch hours as needed for Nausea and Vomiting (N/V). benzonatate 2022-0 Yes [id number] 200mg Take 2 Univers 100 mg 1-07 capsules ity of capsule 00:00: [place] mouth 2 [place] 00 (two) Medical times Branch daily as needed for Cough. guaiFENesin 2022-0 Yes [id number] 400mg Take 1 Univers 400 mg 1-07 tablet by ity of tablet 00:00: mouth [place] 00 every 4 Medical (four) Branch hours as needed for Cough. ondansetron 2022-0 Yes [id number] 4mg Take 1 Univers 4 mg 1-07 tablet by ity of disintegrat 00:00: mouth [place] ing tablet 00 every 8 Medica l (eight) Branch hours as needed for Nausea and Vomiting (N/V). insulin Yes INJECT 15 Unive rs aspart 8-05 UNITS ity of U-100 100 00:00: UNDER THE [place] unit/mL (3 00 SKIN Medical mL) BEFORE Branch injection EVERY MEAL 5 MINUTES BEFORE MEALS FOR DIABETES. DO NOT ADMINISTER IF A MEAL IS MISSED insulin Yes INJECT 15 Unive rs aspart 8-05 UNITS ity of U-100 100 00:00: UNDER THE [place] unit/mL (3 00 SKIN Medical mL) BEFORE Branch injection EVERY MEAL 5 MINUTES BEFORE MEALS FOR DIABETES. DO NOT ADMINISTER IF A MEAL IS MISSED insulin Yes INJECT 15 Unive rs aspart 8-05 UNITS ity of U-100 100 00:00: UNDER THE [place] unit/mL (3 00 SKIN Medical mL) BEFORE Branch injection EVERY MEAL 5 MINUTES BEFORE MEALS FOR DIABETES. DO NOT ADMINISTER IF A MEAL IS MISSED insulin Yes INJECT 15 Unive rs aspart 8-05 UNITS ity of U-100 100 00:00: UNDER THE [place] unit/mL (3 00 SKIN Medical mL) BEFORE Branch injection EVERY MEAL 5 MINUTES BEFORE MEALS FOR DIABETES. DO NOT ADMINISTER IF A MEAL IS MISSED atorvastati Yes 80mg Take 80 mg Univers n 80 mg 4-15 by mouth ity of tablet 09:49: at [place] [address] bedtime. Medical Branch atorvastati Yes 80mg Take 80 mg Univers n 80 mg 4-15 by mouth ity of tablet 09:49: at [place] 14 bedtime. Medical Branch INSULIN Yes 22U inject 22 Unive rs DETEMIR 3-03 Units ity of (LEVEMIR 08:57: [place] FLEXTOUCH 48 skin. Medical PA) Branch gabapentin Yes Take by Uni vers 300 mg 3-03 mouth. ity of tablet 08:57: [address] Branch INSULIN Yes 22U inject 22 Unive rs DETEMIR 3-03 Units ity of (LEVEMIR 08:57: [place] FLEXTOUCH 48 skin. Medical PA) Branch gabapentin Yes Take by Uni vers 300 mg 3-03 mouth. ity of tablet 08:57: [address] Branch INSULIN Yes 22U inject 22 Unive rs DETEMIR 3-03 Units ity of (LEVEMIR 08:57: [place] FLEXTOUCH 48 skin. Medical PA) Branch gabapentin 2020-0 Yes Take by Uni vers 300 mg 3-03 mouth. ity of tablet 08:57: [address] INSULIN 2020-0 Yes 22U inject 22 Unive rs DETEMIR 3-03 Units ity of (LEVEMIR 08:57: [place] FLEXTOUCH 48 skin. Medical PA) Branch gabapentin 2020-0 Yes Take by Uni vers 300 mg 3-03 mouth. ity of tablet 08:57: [address] INSULIN 2020-0 Yes 22U inject 22 Unive rs DETEMIR 3-03 Units ity of (LEVEMIR 08:57: [place] FLEXTOUCH 48 skin. Medical PA) Branch gabapentin 2020-0 Yes Take by Uni vers 300 mg 3-03 mouth. ity of tablet 08:57: [address] INSULIN 2020-0 Yes 22U inject 22 Unive rs DETEMIR 3-03 Units ity of (LEVEMIR 08:57: [place] FLEXTOUCH 48 skin. Medical PA) Branch gabapentin 0 Yes Take by Uni vers 300 mg 3-03 mouth. ity of tablet 08:57: [address] Branch lisinopriL 2021-0 Yes 10mg Take 1 Unive rs 10 mg 3-03 tablet by ity of tablet 00:00: mouth 2 (two) Medical times Branch daily. lisinopriL 2021-0 Yes 10mg Take 1 Unive rs 10 mg 3-03 tablet by ity of tablet 00:00: mouth 2 (two) Medical times Branch daily. lisinopriL 2021-0 Yes 10mg Take 1 Unive rs 10 mg 3-03 tablet by ity of tablet 00:00: mouth 2 (two) Medical times Branch daily. lisinopriL 2021-0 Yes 10mg Take 1 Unive rs 10 mg 3-03 tablet by ity of tablet 00:00: mouth 2 (two) Medical times Branch daily. lisinopriL 2021-0 Yes 10mg Take 1 Unive rs 10 mg 3-03 tablet by ity of tablet 00:00: mouth 2 (two) Medical times Branch daily. lisinopriL 2021-0 Yes 10mg Take 1 Unive rs 10 mg 3-03 tablet by ity of tablet 00:00: mouth 2 [place] 00 (two) Medical times Branch daily. loratadine 2016-11 Yes 10mg Take 10 mg U nivers (CLARITIN) 2-01 by mouth ity o f 10 mg 00:00: daily. [place] tablet Medical Branch loratadine 2016-11 Yes 10mg Take 10 mg U nivers (CLARITIN) 2-01 by mouth ity o f 10 mg 00:00: daily. [place] tablet Medical Branch loratadine 2016-11 Yes 10mg Take 10 mg U nivers (CLARITIN) 2-01 by mouth ity o f 10 mg 00:00: daily. [place] tablet Medical Branch loratadine 2016-11 Yes 10mg Take 10 mg U nivers (CLARITIN) 2-01 by mouth ity o f 10 mg 00:00: daily. [place] tablet Medical Branch loratadine 2016-11 Yes 10mg Take 10 mg U nivers (CLARITIN) 2-01 by mouth ity o f 10 mg 00:00: daily. [place] tablet Medical Branch loratadine 2016-11 Yes 10mg Take 10 mg U nivers (CLARITIN) 2-01 by mouth ity o f 10 mg 00:00: daily. [place] tablet Medical Branch Immunizations Ordered Filled Immunization Date Status Comments [facility] e Immunization Name Name SARS-COV-2 COVID-19 2021-10-12 Completed Unive rsity of MODERNA BOOSTER 00:00:00 [facility] ica VACCINE Branch SARS-COV-2 COVID-19 2021-10-12 Completed Unive rsity of MODERNA BOOSTER 00:00:00 [facility] ical VACCINE Branch SARS-COV-2 COVID-19 2021-10-12 Completed Unive rsity of MODERNA BOOSTER 00:00:00 [facility] ical VACCINE Branch SARS-COV-2 COVID-19 2021-10-12 Completed Unive rsity of MODERNA BOOSTER 00:00:00 [facility] ical VACCINE Branch SARS-COV-2 COVID-19 2021-10-12 Completed Unive rsity of MODERNA BOOSTER 00:00:00 [facility] VACCINE [place] SARS-COV-2 COVID-19 2021-10-12 Completed Unive rsity of MODERNA BOOSTER 00:00:00 [place] Med ical VACCINE Branch SARS-COV-2 COVID-19 2021-01-24 Completed Unive rsity of MODERNA VACCINE 00:00:00 [place] Med ical Branch SARS-COV-2 COVID-19 2021-01-24 Completed Unive rsity of MODERNA VACCINE 00:00:00 [place] Med ical Branch SARS-COV-2 COVID-19 2021-01-24 Completed Unive rsity of MODERNA VACCINE 00:00:00 [place] Med ical Branch SARS-COV-2 COVID-19 2021-01-24 Completed Unive rsity of MODERNA VACCINE 00:00:00 [place] Med ical Branch SARS-COV-2 COVID-19 2021-01-24 Completed Unive rsity of MODERNA VACCINE 00:00:00 [place] Med ical Branch SARS-COV-2 COVID-19 2021-01-24 Completed Unive rsity of MODERNA VACCINE 00:00:00 [place] Med ical Branch SARS-COV-2 COVID-19 2020-12-26 Completed Unive rsity of MODERNA VACCINE 00:00:00 [place] Med ical Branch SARS-COV-2 COVID-19 2020-12-26 Completed Unive rsity of MODERNA VACCINE 00:00:00 [place] Med ical Branch SARS-COV-2 COVID-19 2020-12-26 Completed Unive rsity of MODERNA VACCINE 00:00:00 [place] Med ical Branch SARS-COV-2 COVID-19 2020-12-26 Completed Unive rsity of MODERNA VACCINE 00:00:00 [place] Med ical Branch SARS-COV-2 COVID-19 2020-12-26 Completed Unive rsity of MODERNA VACCINE 00:00:00 [place] [facility] ical Branch SARS-COV-2 COVID-19 2020-12-26 Completed Unive rsity of MODERNA VACCINE 00:00:00 [facility] ical Branch Vital Signs Vital Name Observation Time Observation Value Comments Source Systolic blood 2021-12-11 19:11:00 134 mm[Hg] Univer sity of pressure [facility] Diastolic blood 2021-12-11 19:11:00 89 mm[Hg] Unive rsity of pressure [facility] Heart rate 2021-12-11 19:09:00 100 /min [facility] Body temperature 2021-12-11 19:09:00 36.94 Lissy Univ ersity of [place] [facility] Respiratory rate 2021-12-11 19:09:00 16 /min Univ ersity of [place] [facility] Body height 2021-12-11 19:09:00 175.3 cm Universi ty of [place] [facility] Body weight 2021-12-11 19:09:00 85.73 kg Universi ty of [place] [facility] BMI 2021-12-11 19:09:00 27.91 kg/m2 Universi ty of [place] [facility] Oxygen saturation in 2021-12-11 19:09:00 99 /min University of Arterial blood by [place] [employer] Pulse oximetry Branch Systolic blood 2021-11-30 16:22:00 115 mm[Hg] Univer sity of pressure [place] [facility] Diastolic blood 2021-11-30 16:22:00 81 mm[Hg] Unive rsity of pressure [place] [facility] Body temperature 2021-11-30 16:17:00 36.5 Lissy Univ ersity of [place] [facility] Respiratory rate 2021-11-30 16:17:00 16 /min Univ ersity of [place] [facility] Body height 2021-11-30 16:17:00 175.3 cm Universi ty [facility] [place] [facility] Body weight 2021-11-30 16:17:00 86.456 kg Universi ty [facility] [place] [facility] BMI 2021-11-30 16:17:00 28.15 kg/m2 Universi ty [facility] [place] [facility] Oxygen saturation in 2021-11-30 16:17:00 96 /min University of Arterial blood by [facility] Pulse oximetry Branch Heart rate 2021-11-30 16:17:00 86 /min Universi ty of [place] [facility] Systolic blood 2021-11-23 23:12:00 135 mm[Hg] Univer sity of pressure [place] [facility] Diastolic blood 2021-11-23 23:12:00 91 mm[Hg] Unive rsity of pressure [place] [facility] Heart rate 2021-11-23 23:09:00 97 /min Universi ty [facility] [place] [facility] Body temperature 2021-11-23 23:09:00 36.72 Lissy Univ ersity of [place] [facility] Respiratory rate 2021-11-23 23:09:00 19 /min [facility] Body height 2021-11-23 23:09:00 175.3 cm [facility] Body weight 2021-11-23 23:09:00 88.225 kg [facility] BMI 2021-11-23 23:09:00 28.72 kg/m2 [facility] Oxygen saturation in 2021-11-23 23:09:00 99 /min University Arterial blood by [facility] Pulse oximetry [place] Procedures This patient has no known procedures. Encounters Start End Encounter Admission Attending Care Care Encounter Source Date/Time Date/Time Type Type Clinicians Facility Department ID 2021-12-20 2021-12-20 [facility] [id number] Univers 00:00:00 00:00:00 Devika ZALDIVAR [id number] ity [facility] [id number] [place] PROFESS[place] [id number] Fl pasha GABRIEL 059 Branch BUILDING 2021-12-12 2021-12-12 Letter Violette Mcmahon [id number] Univers 00:00:00 00:00:00 (Out) ANTHONY [id number] it y of [facility] [id number] [place] as [id number] [address] 2021-12-11 2021-12-11 [facility] [id number] Univers 13:20:00 13:46:14 FATUMA ity [facility] 2021-12-11 2021-12-11 Urgent Fatuma Sanchez [facility] [id number] Univers 13:20:00 13:46:14 Care AlvaMulu cordova [facility] [id number] ity [facility] [id number] Jonny as CHETNA?BLEA [id number] Fl pasha BREWEREY [address] [place] MEDICAL OFFICE BUILDING 2021-12-11 2021-12-11 Outpatient R [facility] [id number] Univers 13:00:00 13:00:00 [id number] ity [facility] 2021-11-30 2021-11-30 Outpatient R FRANNY [facility] [id number] Univers 10:20:00 11:11:13 MUNA laguna f [facility] 2021-11-30 2021-11-30 Urgent Dilia Shea [facility] [id number] Univers 10:20:00 10:40:00 Care Muna Justice [facility] [id number] ity [facility] [id number] Jonny as CHETNA?BLEA [id number] Fl ambreen[address] MEDICAL OFFICE [facility] 2021-11-30 2021-11-30 Outpatient R [facility] [id number] Univers 10:20:00 10:20:00 [id number] [facility] 2021-11-23 2021-11-23 [facility] [id number] Univers 17:00:00 17:38:39 INDER [facility] 2021-11-23 2021-11-23 Urgent Inder Nugent [facility] [id number] Univers 17:00:00 17:20:00 [facility] [id number] ity of [place] [id number] Jonny as CHETNA?BLEA [id number] Fl ambreen[address] MEDICAL OFFICE [facility] 2021-11-23 2021-11-23 Outpatient R [facility] [id number] Univers 17:00:00 17:00:00 [id number] [facility] 2021-11-21 2021-11-21 Laboratory Only, Ang Db Test [facility] [id number] Univers 11:15:00 11:30:31 Only Unknown, Attending HEALTH [id number] ity of Dilia Shea [id number] [place] CHETNA?BLEA [id number] Fl pasha [address] MEDICAL OFFICE [facility] 2021-11-21 2021-11-21 Outpatient R SHABBIR [facility] [id number] Univers 11:15:00 11:30:31 DILIA johny [facility] Results This patient has no known results.
[2022-01-11 14:21] LABS: Absolute Lymphocytes (CBC) 3.2 K/uL (0.7-4.9); Hematocrit 40.9 % (39.6-49.0); Lymphocytes % 29.1 % (15.3-44.8); MPV 7.7 fL (7.6-11.3); RBC Red Blood Cell Count 5.07 M/uL (4.33-5.43)
[2022-01-11 14:27] LABS: Protime INR 0.97
--- NOTE | 2022-01-11 14:43 | RAD REPORT ---
EXAM DESCRIPTION: Vickie Single View01/11/2022 2:20 pm CLINICAL HISTORY: Chest pain COMPARISON: 2018 FINDINGS: The lungs appear clear of acute infiltrate. The heart is normal size IMPRESSION: No acute abnormalities displayed
[2022-01-11 14:54] LABS: Bilirubin Direct 0.1 mg/dL (0-0.2); Bilirubin Total 0.8 mg/dL (0.2-1.0); Magnesium 2.2 mg/dL (1.8-2.4); Potassium 4.2 mmol/L (3.5-5.1); Protein, Total 8.5 g/dL (6.4-8.2); Troponin High Sensitivity 6.3 pg/mL (<58.9)
[2022-01-11] MEDS ORDERED: NA CHLORIDE 0.9% 1,000 ML ONE (15:21)
--- NOTE | 2022-01-11 16:00 | RAD REPORT ---
EXAM DESCRIPTION: US - UPPER EXTREMITY VENOUS UNILATE - 01/11/2022 3:53 pm CLINICAL HISTORY: Left arm numbness COMPARISON: None. FINDINGS: Left internal jugular vein, left subclavian vein, left axillary vein, left brachial vein, left cephalic, left basilic, left ulnar and left radial veins demonstrate phasic signal. The veins ar e compressible. Doppler demonstrates good flow. . IMPRESSION: No sonographic evidence of thrombus involving the left upper extremity veins.
--- NOTE | 2022-01-11 16:28 | EDPHYS ---
Physician Documentation [facility] Name: Erick Bosch Age: 56 yrs Sex: Male : 1965 Arrival Date: 01/11/2022 Time: 13:48 Bed 24 Private MD: Valdez Nogueira ED Physician Ozzy Vora HPI: 01/11 14:01 This 56 yrs old Black Male presents to ER via Ambulatory with complaints of High Blood jmm Sugar, Vomiting, Arm Pain. 14:01 The patient or guardian reports hyperglycemia. Onset: The symptoms/episode jmm began/occurred at an unknown time. Associated signs and symptoms: Pertinent positives: paresthesias. This is a 56 year old male with a history of DM, HLP, HTN that presents to the ED with complaints of paresthesias to the left forearm beginning this morning. BGL was elevated as well. Denies chest pain, sob, abdominal pain, vomiting, but states having some nausea. . Historical: - Allergies: 13:53 metformin; ld1 - Home Meds: 13:53 atorvastatin 80 mg Oral tab 1 tab once daily [Active]; chlorthalidone 25 mg Oral tab 1 ld1 tab once daily [Active]; gabapentin 300 mg Oral cap daily [Active]; levemir 50 units once daily [Active]; lisinopril 40 mg Oral tab 1 tab once daily [Active]; mirtazapine 15 mg Oral tab 1 tab once daily [Active]; novalog flexpen 12 units before every meal [Active]; Victoza 2-Henry subcutaneous [Active]; - PMHx: 13:53 Diabetes - IDDM; High Cholesterol; Hypertension; neck pain; ld1 - PSHx: 13:53 None; ld1 - Immunization history:: Adult Immunizations up to date, Client reports receiving the 2nd dose of the Covid vaccine. - Social history:: Smoking status: Patient denies any tobacco usage or history of. Patient/guardian denies using alcohol. ROS: 14:01 Constitutional: Negative for fever, chills, and weight loss, Cardiovascular: Negative jmm for chest pain, palpitations, and edema, Respiratory: Negative for shortness of breath, cough, wheezing, and pleuritic chest pain. 14:01 Abdomen/GI: Positive for vomiting. 14:01 All other systems are negative. Exam: 14:01 Constitutional: This is a well developed, well nourished patient who is awake, alert, jmm and in no acute distress. Head/Face: atraumatic. Eyes: EOMI, no conjunctival erythema appreciated ENT: Moist Mucus Membranes Neck: Trachea midline, Supple Chest/axilla: Normal chest wall appearance and motion. Cardiovascular: Regular rate and rhythm. No edema appreciated Respiratory: Normal respirations, no respiratory distress appreciated Abdomen/GI: Non distended, soft Back: Normal ROM Skin: General appearance color normal MS/ Extremity: Moves all extremities, no obvious deformities appreciated, no edema noted to the lower extremities Neuro: Awake and alert Psych: Behavior is normal, Mood is normal, Patient is cooperative and pleasant 14:01 Musculoskeletal/extremity: FROM noted to the left elbow, wrist, hand. Full head of conservation strength, sensation intact, full radial pulse, < 2 sec dist cap refill, NVI. 14:01 Skin: Appearance: Color: normal in color. 14:01 Neuro: Orientation: is normal, Mentation: is normal, Memory: is normal. 14:01 Psych: Behavior/mood is pleasant, cooperative. Vital Signs: 13:52 BP 158 / 89; Pulse 88; Resp 18; Temp 98.6(TE); Pulse Ox 100% on R/A; Weight 89.36 kg; ld1 Height 5 ft. 9 in. (175.26 cm); Pain 0/10; 15:54 BP 148 / 89; Pulse 74; Resp 18; Pulse Ox 100% ; ss7 17:08 BP 153 / 99; Pulse 64; Resp 18; Pulse Ox 100% on R/A; ss7 13:52 Body Mass Index 29.09 (89.36 kg, 175.26 cm) ld1 MDM: 14:31 Patient medically screened. [facility] 16:23 Data reviewed: vital signs, nurses notes. Counseling: I had a detailed discussion with [facility] the patient and/or guardian regarding: the historical points, exam findings, and any diagnostic results supporting the discharge/admit diagnosis, the need for outpatient follow up, to return to the emergency department if symptoms worsen or persist or if there are any questions or concerns that arise at home. ED course: Patient is alert and non toxic in appearance in the ED. I do not suspect DKA. Paresthesias most likely a localized unar nerve neuropathy. Patient advised to follow up with neuro for further evaluation and otherwis given strict return precautions. Patient understood and agrees with the plan of care. . 01/11 14:01 Order name: Basic Metabolic Panel; Complete Time: 14:56 [facility] 01/11 14:01 Order name: CBC with Diff; Complete Time: 14:31 [facility] 01/11 14:01 Order name: LFT's; Complete Time: 14:56 [facility] 01/11 14:01 Order name: Magnesium; Complete Time: 14:56 [facility] 01/11 14:01 Order name: NT PRO-BNP; Complete Time: 14:56 [facility] 01/11 14:01 Order name: PT-INR; Complete Time: 14:31 [facility] 01/11 14:01 Order name: Troponin HS; Complete Time: 14:56 [facility] 01/11 14:01 Order name: XRAY Chest (1 view); Complete Time: 14:44 [facility] 01/11 14:01 Order name: EKG; Complete Time: 14:02 [facility] 01/11 14:01 Order name: Cardiac monitoring; Complete Time: 14:14 [facility] 01/11 15:10 Order name: UPPER EXTREMITY VENOUS UNILATE; Complete Time: 16:00 [facility] 01/11 14:01 Order name: EKG - Nurse/Tech; Complete Time: 14:14 [facility] 01/11 14:01 Order name: IV Saline Lock; Complete Time: 14:14 [facility] 01/11 14:01 Order name: Labs collected and sent; Complete Time: 14:14 [facility] 01/11 14:01 Order name: O2 Per Protocol; Complete Time: 14:14 [facility] 01/11 14:01 Order name: O2 Sat Monitoring; Complete Time: 14:14 [facility] Administered Medications: 15:45 Drug: NS 0.9% 1000 ml Route: IV; Rate: 1000 ml; Site: right antecubital; ss7 17:08 Follow up: IV Status: Completed infusion; IV Intake: 1000ml ss7 16:35 Drug: Zofran (Ondansetron) 4 mg Route: IVP; Site: right antecubital; ss7 16:39 Follow up: Response: No adverse reaction ss7 Disposition: 16:27 Chart complete. [facility] 18:46 Co-signature as Attending Physician, Ozzy Vora MD I agree with the assessment and rn plan of care. Attestation: The patient's history, exam findings, diagnostics, and a summary of any interventions or procedures was reviewed in detail with Moises HORNE. Disposition Summary: 01/11/22 16:27 Discharge Ordered Location: Home [facility] Condition: Stable jm Diagnosis - Hyperglycemia, unspecified jmm - Peripheral neuropathy jmm Followup: jmm - With: Valdez Nogueira MD - When: 2 - 3 days - Reason: Recheck today's complaints, Continuance of care, Re-evaluation by your physician Discharge Instructions: - Discharge Summary Sheet jm - Hyperglycemia jmm - Peripheral Neuropathy jm Forms: - Medication Reconciliation Form [facility] - Thank You Letter [facility] - Antibiotic Education m - Prescription Opioid Use [facility] - Work release form ss7 Prescriptions: - ondansetron 4 mg Oral tablet,disintegrating - take 1 tablet by ORAL route every 12 hours; 20 tablet; Refills: 0, Product jmm Selection Permitted Signatures: Dispatcher [employer] EDMS Moises Mccartney PA PA jm Ozzy Vora MD MD rn Smirch, Shelby, RN RN ss Lesa Waite RN RN ld1 Jazmin López RN RN ss7 Corrections: (The following items were deleted from the chart) 15:10 14:57 Extremity Venous [email or web address] ordered. EDWA EDMS
--- NOTE | 2022-01-11 16:28 | ER ---
Nurse's Notes [facility] Name: Erick Bosch Age: 56 yrs Sex: Male : 1965 Arrival Date: 01/11/2022 Time: 13:48 Bed 24 Private MD: Valdez Nogueira Diagnosis: Hyperglycemia, unspecified;Peripheral neuropathy Presentation: 01/11 13:52 Chief complaint: Patient states: Left arm pain/numbness since 0900 this morning. N/V - ld1 High BG of 500 this morning. Coronavirus screen: At this time, the client does not indicate any symptoms associated with coronavirus-19. Ebola Screen: No symptoms or risks identified at this time. Initial Sepsis Screen: Does the patient meet any 2 criteria? No. Patient's initial sepsis screen is negative. Does the patient have a suspected source of infection? No. Patient's initial sepsis screen is negative. Risk Assessment: Do you want to hurt yourself or someone else? Patient reports no desire to harm self or others. Onset of symptoms was January 11, 2022. 13:52 Method Of Arrival: Ambulatory ld1 13:52 Acuity: ARNOL 3 ld1 Triage Assessment: 13:53 General: Appears in no apparent distress. comfortable, Behavior is calm, cooperative, ld1 appropriate for age. Pain: Complains of pain in left arm Pain does not radiate. Pain currently is 6 out of 10 on a pain scale. Quality of pain is described as numb, Pain began 4 hours ago. Is intermittent. Neuro: Level of Consciousness is awake, alert, obeys commands, Oriented to person, place, time, situation. Cardiovascular:. Respiratory: Airway is patent Respiratory effort is even, unlabored. GI: Abdomen is flat, non-distended, Reports nausea, vomiting. 13:53 Musculoskeletal: Reports numbness in left arm. ld1 Historical: - Allergies: 13:53 metformin; ld1 - Home Meds: 13:53 atorvastatin 80 mg Oral tab 1 tab once daily [Active]; chlorthalidone 25 mg Oral tab 1 ld1 tab once daily [Active]; gabapentin 300 mg Oral cap daily [Active]; levemir 50 units once daily [Active]; lisinopril 40 mg Oral tab 1 tab once daily [Active]; mirtazapine 15 mg Oral tab 1 tab once daily [Active]; novalog flexpen 12 units before every meal [Active]; Victoza 2-Henry subcutaneous [Active]; - PMHx: 13:53 Diabetes - IDDM; High Cholesterol; Hypertension; neck pain; ld1 - PSHx: 13:53 None; ld1 - Immunization history:: Adult Immunizations up to date, Client reports receiving the 2nd dose of the Covid vaccine. - Social history:: Smoking status: Patient denies any tobacco usage or history of. Patient/guardian denies using alcohol. Screenin:15 Abuse screen: Denies threats or abuse. Nutritional screening: No deficits noted. ss7 Tuberculosis screening: No symptoms or risk factors identified. Fall Risk IV access (20 points). Assessment: 14:15 General: Appears in no apparent distress. comfortable, Behavior is calm, cooperative, ss7 appropriate for age. Pain: Denies pain. Neuro: No deficits noted. Cardiovascular: Reports None Heart tones S1 S2 Rhythm is regular. Respiratory: No deficits noted. GI: No deficits noted. Abdomen is Bowel sounds present X 4 quads. Abd is soft and non tender X 4 quads. Reports nausea. : No deficits noted. EENT: No deficits noted. Derm: No deficits noted. Musculoskeletal: No deficits noted. 16:34 Reassessment: Pt discharged, pending NS completion. . ss7 Vital Signs: 13:52 BP 158 / 89; Pulse 88; Resp 18; Temp 98.6(TE); Pulse Ox 100% on R/A; Weight 89.36 kg; ld1 Height 5 ft. 9 in. (175.26 cm); Pain 0/10; 15:54 BP 148 / 89; Pulse 74; Resp 18; Pulse Ox 100% ; ss7 17:08 BP 153 / 99; Pulse 64; Resp 18; Pulse Ox 100% on R/A; ss7 13:52 Body Mass Index 29.09 (89.36 kg, 175.26 cm) ld1 ED Course: 13:48 Patient arrived in ED. mr 13:49 Valdez Nogueira MD is Private Physician. mr 13:53 Triage completed. ld1 13:53 Arm band placed on right wrist. ld1 14:00 Moises Mccartney PA is PHCP. [facility] 14:00 Ozzy Vora MD is Attending Physician. [facility] 14:14 Basic Metabolic Panel Sent. ab2 14:15 Patient has correct armband on for positive identification. Placed in gown. Bed in low ss7 position. Call light in reach. Side rails up X2. 14:15 CBC with Diff Sent. ab2 14:15 LFT's Sent. ab2 14:15 Magnesium Sent. ab2 14:15 NT PRO-BNP Sent. ab2 14:15 PT-INR Sent. ab2 14:15 Troponin HS Sent. ab2 14:15 Inserted saline lock: 20 gauge in right antecubital area, using aseptic technique. ss7 14:17 No provider procedures requiring assistance completed. ss7 14:20 XRAY Chest (1 view) In Process Unspecified. EDMS 15:53 UPPER EXTREMITY VENOUS UNILATE In Process Unspecified. EDMS 16:27 Valdez Nogueira MD is Referral Physician. alisa Administered Medications: 15:45 Drug: NS 0.9% 1000 ml Route: IV; Rate: 1000 ml; Site: right antecubital; ss7 17:08 Follow up: IV Status: Completed infusion; IV Intake: 1000ml ss7 16:35 Drug: Zofran (Ondansetron) 4 mg Route: IVP; Site: right antecubital; ss7 16:39 Follow up: Response: No adverse reaction ss7 Intake: 17:08 IV: 1000ml; Total: 1000ml. 7 Outcome: 16:27 Discharge ordered by . [facility] 17:14 Patient left the ED. ss7 Signatures: Dispatcher [employer] EDMS Moises Mccartney PA PA jmm Rivera, Mary mr Lesa Waite RN RN ld1 Erlin Ramon ab2 Jazmin López, LALI RN ss7 Corrections: (The following items were deleted from the chart) 13:56 13:52 Chief complaint: Patient states: Left arm pain X 1 day. N/V - High BG of 500 this ld1 morning. ld1
[2022-01-11] MEDS ORDERED: ONDANSETRON 4 MG/2 ML VIAL ONE (16:38)
[2022-01-11 17:53] VITALS: TEMP 98.6; O2SAT 100
[2022-01-11 17:56] VITALS: BP 153/99
--- NOTE | 2022-01-12 18:18 | EKG ---
Test Date: 2022-01-11 Test Time: 14:08:28 Note Teller: MEASUREMENT RESULTS: Intervals: Rate: 82 OH: 168 QRSD: 76 QT: 390 QTc: 455 [place]: P: 62 OH: 168 QRS: -5 T: 13 INTERPRETIVE STATEMENTS: Normal sinus rhythm Normal ECG Compared to ECG 11/12/2019 19:12:17 T-wave abnormality no longer present Electronically Signed On 01-12-22 18:17:27 [employer] by Rory Ford
== END 2022-01-11 17:14 | disposition home or self-care (01) ==
LOC: ER 13:45
DX: E11.65 Type 2 diabetes mellitus with hyperglycemia (principal); E11.42 Type 2 diabetes mellitus with diabetic polyneuropathy; I10 Essential (primary) hypertension; Z79.4 Long term (current) use of insulin; Z88.8 Allergy status to other drugs, medicaments and biological substances
CPT/HCPCS: 96361; 93005; 85025; 80048; 36415; 83735; 85610; 80076; 84484; 83880; 71045; 93971; 96374; 99284; J7030; J2405

== ENCOUNTER 2022-04-02 23:38 | Emergency (ER) | payer BC ==
--- OUTSIDE RECORDS SUMMARY | 2022-04-02 23:40 | XMS REPORT | Continuity of Care Document ---
:1965 Author Organization [facility] t Address [facility] [place] [address] Care Team Providers Name Role Phone PEDRO PABLO Primary Care Physician Unavailable LUTZ Attending Clinician Unavailable Lutz DO Attending Clinician Sree DENNIS, K.H. Attending Clinician Salome CARSON Attending Clinician Unavailable GREEN Attending Clinician Unavailable Green PROTECTIVE SERVICES CASE WORKER Attending Clinician Alva PROTECTIVE SERVICES CASE WORKER, J Attending Clinician FRANNY Attending Clinician Unavailable Shabbir DENNIS Attending Clinician Franny SHOOK Attending Clinician JOVANNA Attending Clinician Unavailable Jovanna WASHINGTON Attending Clinician Only, Db Test Attending Clinician Unavailable Unknown Attending Clinician Unavailable SHABBIR Attending Clinician Unavailable LUTZ Admitting Clinician Unavailable Payers Payer Name Policy Type Policy Number Effective Date Expiration Date Mario yanez [facility] [id number] 2017 00:00:00 [facility] [id number] 1998 00:00:00 Problems Condition Condition Condition Status Onset Resolution Last Treating Co mments Source Name Details Category Date Date Treatment Clinician Date Postural Postural Disease Active NPI:1 83 dizziness dizziness 12-16 1318 781 with with 00:00: presyncope presyncope 00 Allergies, Adverse Reactions, Alerts Allergy Allergy Status Severity Reaction(s) Onset Inactive Treating Comm ents Source Name Type Date Date Clinician METFORMI DRUG Active Diarrhea NPI:18 3 N INGREDI 8-05 [id number] 00:00: 00 Metformi Propensi Active Diarrhea NPI: 183 n ty to 06-28 [id number] adverse 00:00: reaction 00 s NO KNOWN Drug Active NPI:183 ALLERGIE Class [id number] S Social History Social Habit Start Date Stop Date Quantity Comments Source Exposure to 2022-03-08 2022-03-18 Not sure NPI:[id number] 1 SARS-CoV-2 00:00:00 08:36:00 (event) Alcohol intake 2022-03-18 2022-03-18 Current NPI:[id number] 00:00:00 00:00:00 non-drinker of alcohol (finding) Tobacco use and 2017-08-19 2017-08-19 Never used NPI:[id number] 71997 exposure 00:00:00 00:00:00 Sex [birth year] At [birth year] NPI:[id number] 21891 00:00:00 00:00:00 Smoking Status Start Date Stop Date Source Never smoker Medications Ordered Filled Start Stop Current Ordering Indication Dosage Frequency Signature Comments Components Source Medication Medication Date Date Medication? Clinician (SIG) Name Name NaCl 0.9% 2021- 1000mL at 999 NPI :183 (NS) bolus 4-25 04-25 mL/hr, [id number] 1 infusion 14:15: 15:45 1,000 mL, 1,000 mL 00 :00 IV Infusion, ONCE, 1 dose, On Fri03/18/22 at 0915, STAT empaglifloz Yes 25mg Take 25 mg NPI:183 in 25 mg 4-25 by mouth. [id number] 1 Tab 10:35: 23 INSULIN Yes 22U inject NPI:1 83 DETEMIR 4-25 Units [id number] (LEVEMIR 08:42: under the FLEXTOUCH 52 skin. SC) gabapentin Yes Take by NPI :183 300 mg 4-25 mouth. [id number] tablet 08:42: 52 atorvastati Yes 80mg Take 80 mg NPI:183 n 80 mg 4-25 by mouth [id number] tablet 08:42: at 52 bedtime. AMLODIPINE Yes [id number] TAKE 1 N PI:183 5 mg tablet 1-27 TABLET BY 131 8781 00:00: MOUTH 00 EVERY DAY AMLODIPINE 2022-0 Yes [id number] TAKE 1 N PI:183 5 mg tablet 1-27 TABLET BY 131 8781 00:00: MOUTH 00 EVERY DAY atorvastati 2022-0 Yes 80mg Take 80 mg NPI:183 n 80 mg 1-07 by mouth [id number] tablet 10:18: at 42 bedtime. atorvastati 2022-0 Yes 80mg Take 80 mg NPI:183 n 80 mg 1-07 by mouth [id number] tablet 10:18: at 42 bedtime. atorvastati 2022-0 Yes 80mg Take 80 mg NPI:183 n 80 mg 1-07 by mouth [id number] tablet 10:18: at 42 bedtime. atorvastati 2022-0 Yes 80mg Take 80 mg NPI:183 n 80 mg 1-07 by mouth [id number] tablet 10:18: at 42 bedtime. benzonatate 2022-0 Yes [id number] 200mg Take 2 NPI:183 100 mg 1-07 capsules [id number] capsule 00:00: by mouth 2 00 (two) times daily as needed for Cough. guaiFENesin 2022-0 Yes [id number] 400mg Take 1 NPI:183 400 mg 1-07 tablet by [id number] tablet 00:00: mouth 00 every 4 (four) hours as needed for Cough. ondansetron 2022-0 Yes [id number] 4mg Take 1 NPI:183 4 mg 1-07 tablet by [id number] disintegrat 00:00: mouth ing tablet 00 every 8 (eight) hours as needed for Nausea and Vomiting (N/V). benzonatate 2022-0 Yes [id number] 200mg Take 2 NPI:183 100 mg 1-07 capsules [id number] capsule 00:00: by mouth 2 00 (two) times daily as needed for Cough. guaiFENesin 2022-0 Yes [id number] 400mg Take 1 NPI:183 400 mg 1-07 tablet by [id number] tablet 00:00: mouth 00 every 4 (four) hours as needed for Cough. ondansetron 2022-0 Yes [id number] 4mg Take 1 NPI:183 4 mg 1-07 tablet by [id number] disintegrat 00:00: mouth ing tablet 00 every 8 (eight) hours as needed for Nausea and Vomiting (N/V). benzonatate 2022-0 Yes [id number] 200mg Take 2 NPI:183 100 mg 1-07 capsules [id number] capsule 00:00: by mouth 2 00 (two) times daily as needed for Cough. guaiFENesin 2022-0 Yes [id number] 400mg Take 1 NPI:183 400 mg 1-07 tablet by [id number] tablet 00:00: mouth 00 every 4 (four) hours as needed for Cough. ondansetron 2022-0 Yes [id number] 4mg Take 1 NPI:183 4 mg 1-07 tablet by [id number] disintegrat 00:00: mouth ing tablet 00 every 8 (eight) hours as needed for Nausea and Vomiting (N/V). benzonatate 2021-0 Yes [id number] 200mg Take 2 NPI:183 100 mg 1-07 capsules [id number] capsule 00:00: by mouth 2 00 (two) times daily as needed for Cough. guaiFENesin 2-0 Yes [id number] 400mg Take 1 NPI:183 400 mg 1-07 tablet by [id number] tablet 00:00: mouth 00 every 4 (four) hours as needed for Cough. ondansetron 2021-0 Yes [id number] 4mg Take 1 NPI:183 4 mg 1-07 tablet by [id number] disintegrat 00:00: mouth ing tablet 00 every 8 (eight) hours as needed for Nausea and Vomiting (N/V). benzonatate 2022-0 Yes [id number] 200mg Take 2 NPI:183 100 mg 1-07 capsules [id number] capsule 00:00: by mouth 2 00 (two) times daily as needed for Cough. guaiFENesin 2022-0 Yes [id number] 400mg Take 1 NPI:183 400 mg 1-07 tablet by [id number] tablet 00:00: mouth 00 every 4 (four) hours as needed for Cough. ondansetron 2022-0 Yes [id number] 4mg Take 1 NPI:183 4 mg 1-07 tablet by [id number] disintegrat 00:00: mouth ing tablet 00 every 8 (eight) hours as needed for Nausea and Vomiting (N/V). insulin 2021-0 Yes INJECT 15 NPI:1 83 aspart 8-05 UNITS [id number] U-100 100 00:00: UNDER THE unit/mL (3 00 SKIN mL) BEFORE injection EVERY MEAL 5 MINUTES BEFORE MEALS FOR DIABETES. DO NOT ADMINISTER IF A MEAL IS MISSED insulin Yes INJECT 15 NPI:1 83 aspart 8-05 UNITS [id number] U-100 100 00:00: UNDER THE unit/mL (3 00 SKIN mL) BEFORE injection EVERY MEAL 5 MINUTES BEFORE MEALS FOR DIABETES. DO NOT ADMINISTER IF A MEAL IS MISSED insulin Yes INJECT 15 NPI:1 83 aspart 8-05 UNITS [id number] U-100 100 00:00: UNDER THE unit/mL (3 00 SKIN mL) BEFORE injection EVERY MEAL 5 MINUTES BEFORE MEALS FOR DIABETES. DO NOT ADMINISTER IF A MEAL IS MISSED insulin Yes INJECT 15 NPI:1 83 aspart 8-05 UNITS [id number] U-100 100 00:00: UNDER THE unit/mL (3 00 SKIN mL) BEFORE injection EVERY MEAL 5 MINUTES BEFORE MEALS FOR DIABETES. DO NOT ADMINISTER IF A MEAL IS MISSED insulin Yes INJECT 15 NPI:1 83 aspart 8-05 UNITS [id number] U-100 100 00:00: UNDER THE unit/mL (3 00 SKIN mL) BEFORE injection EVERY MEAL 5 MINUTES BEFORE MEALS FOR DIABETES. DO NOT ADMINISTER IF A MEAL IS MISSED atorvastati Yes 80mg Take 80 mg NPI:183 n 80 mg 4-15 by mouth [id number] tablet 09:49: at 14 bedtime. atorvastati Yes 80mg Take 80 mg NPI:183 n 80 mg 4-15 by mouth [id number] tablet 09:49: at 14 bedtime. gabapentin Yes Take by NPI :183 300 mg 3-03 mouth. [id number] tablet 08:57: 48 INSULIN Yes 22U inject 22 NPI:1 83 DETEMIR 3-03 Units [id number] (LEVEMIR 08:57: under the FLEXTOUCH 48 skin. SC) gabapentin Yes Take by NPI :183 300 mg 3-03 mouth. [id number] tablet 08:57: 48 INSULIN Yes 22U inject 22 NPI:1 83 DETEMIR 3-03 Units [id number] (LEVEMIR 08:57: under the FLEXTOUCH 48 skin. SC) gabapentin 2021-0 Yes Take by NPI :183 300 mg 3-03 mouth. [id number] tablet 08:57: 48 INSULIN 2021-0 Yes 22U inject 22 NPI:1 83 DETEMIR 3-03 Units [id number] (LEVEMIR 08:57: under the FLEXTOUCH 48 skin. SC) gabapentin 2021-0 Yes Take by NPI :183 300 mg 3-03 mouth. [id number] tablet 08:57: 48 INSULIN 2021-0 Yes 22U inject 22 NPI:1 83 DETEMIR 3-03 Units [id number] (LEVEMIR 08:57: under the FLEXTOUCH 48 skin. SC) gabapentin 2021-0 Yes Take by NPI :183 300 mg 3-03 mouth. [id number] tablet 08:57: 48 INSULIN 2021-0 Yes 22U inject 22 NPI:1 83 DETEMIR 3-03 Units [id number] (LEVEMIR 08:57: under the FLEXTOUCH 48 skin. SC) gabapentin 2021-0 Yes Take by NPI :183 300 mg 3-03 mouth. [id number] tablet 08:57: 48 INSULIN 2021-0 Yes 22U inject 22 NPI:1 83 DETEMIR 3-03 Units [id number] (LEVEMIR 08:57: under the FLEXTOUCH 48 skin. SC) lisinopriL 2021-0 Yes 10mg Take 1 NPI:1 83 10 mg 3-03 tablet by [id number] tablet 00:00: mouth 2 00 (two) times daily. lisinopriL 2021-0 Yes 10mg Take 1 NPI:1 83 10 mg 3-03 tablet by [id number] tablet 00:00: mouth 2 00 (two) times daily. lisinopriL 2021-0 Yes 10mg Take 1 NPI:1 83 10 mg 3-03 tablet by [id number] tablet 00:00: mouth 2 00 (two) times daily. lisinopriL 2021-0 Yes 10mg Take 1 NPI:1 83 10 mg 3-03 tablet by [id number] tablet 00:00: mouth 2 00 (two) times daily. lisinopriL 2021-0 Yes 10mg Take 1 NPI:1 83 10 mg 3-03 tablet by [id number] tablet 00:00: mouth 2 00 (two) times daily. lisinopriL Yes 10mg Take 1 NPI:1 83 10 mg 3-03 tablet by [id number] tablet 00:00: mouth 2 00 (two) times daily. lisinopriL Yes 10mg Take 1 NPI:1 83 10 mg 3-03 tablet by [id number] tablet 00:00: mouth 2 00 (two) times daily. loratadine 2016-11 Yes 10mg Take 10 mg N PI:183 (CLARITIN) 2- by mouth [id number] 10 mg 00:00: daily. tablet 00 loratadine 2016-11 Yes 10mg Take 10 mg N PI:183 (CLARITIN) 2- by mouth [id number] 10 mg 00:00: daily. tablet 00 loratadine 2016-11 Yes 10mg Take 10 mg N PI:183 (CLARITIN) 2- by mouth [id number] 81 10 mg 00:00: daily. tablet 00 loratadine 2016-11 Yes 10mg Take 10 mg N PI:183 (CLARITIN) 2- by mouth [id number] 10 mg 00:00: daily. tablet 00 loratadine 2016-11 Yes 10mg Take 10 mg N PI:183 (CLARITIN) 2- by mouth [id number] 10 mg 00:00: daily. tablet 00 loratadine 2016-11 Yes 10mg Take 10 mg N PI:183 (CLARITIN) 2- by mouth [id number] 81 10 mg 00:00: daily. tablet 00 loratadine 2016-11 Yes 10mg Take 10 mg N PI:183 (CLARITIN) 2- by mouth [id number] 81 10 mg 00:00: daily. tablet 00 Immunizations Ordered Immunization Filled Immunization Date Status Commen ts Source Name Name SARS-COV-2 COVID-19 2021-10-12 Completed NPI:1 [id number] MODERNA BOOSTER 00:00:00 VACCINE SARS-COV-2 COVID-19 2021-10-12 Completed NPI:1 [id number] MODERNA BOOSTER 00:00:00 VACCINE SARS-COV-2 COVID-19 2021-10-12 Completed NPI:1 [id number] MODERNA BOOSTER 00:00:00 VACCINE SARS-COV-2 COVID-19 2021-10-12 Completed NPI:1 [id number] MODERNA BOOSTER 00:00:00 VACCINE SARS-COV-2 COVID-19 2021-10-12 Completed NPI:1 [id number] MODERNA BOOSTER 00:00:00 VACCINE SARS-COV-2 COVID-19 2021-10-12 Completed NPI:1 [id number] MODERNA BOOSTER 00:00:00 VACCINE SARS-COV-2 COVID-19 2021-10-12 Completed NPI:1 [id number] MODERNA BOOSTER 00:00:00 VACCINE SARS-COV-2 COVID-19 2021-01-24 Completed NPI:1 [id number] MODERNA VACCINE 00:00:00 SARS-COV-2 COVID-19 2021-01-24 Completed NPI:1 [id number] MODERNA VACCINE 00:00:00 SARS-COV-2 COVID-19 2021-01-24 Completed NPI:1 [id number] MODERNA VACCINE 00:00:00 SARS-COV-2 COVID-19 2021-01-24 Completed NPI:1 [id number] MODERNA VACCINE 00:00:00 SARS-COV-2 COVID-19 2021-01-24 Completed NPI:1 [id number] MODERNA VACCINE 00:00:00 SARS-COV-2 COVID-19 2021-01-24 Completed NPI:1 [id number] MODERNA VACCINE 00:00:00 SARS-COV-2 COVID-19 2021-01-24 Completed NPI:1 [id number] MODERNA VACCINE 00:00:00 SARS-COV-2 COVID-19 2020-12-26 Completed NPI:1 [id number] MODERNA VACCINE 00:00:00 SARS-COV-2 COVID-19 2020-12-26 Completed NPI:1 [id number] MODERNA VACCINE 00:00:00 SARS-COV-2 COVID-19 2020-12-26 Completed NPI:1 [id number] MODERNA VACCINE 00:00:00 SARS-COV-2 COVID-19 2020-12-26 Completed NPI:1 [id number] MODERNA VACCINE 00:00:00 SARS-COV-2 COVID-19 2020-12-26 Completed NPI:1 [id number] MODERNA VACCINE 00:00:00 SARS-COV-2 COVID-19 2020-12-26 Completed NPI:1 [id number] MODERNA VACCINE 00:00:00 SARS-COV-2 COVID-19 2020-12-26 Completed NPI:1 [id number] MODERNA VACCINE 00:00:00 Vital Signs Vital Name Observation Time Observation Value Comments Source Heart rate 2022-03-18 17:30:00 79 /min NPI:1831 [id number] Respiratory rate 2022-03-18 17:30:00 15 /min Oxygen saturation in 2022-03-18 17:30:00 100 /min Arterial blood by Pulse oximetry Systolic blood pressure 2022-03-18 16:00:00 131 mm[Hg] Diastolic blood 2022-03-18 16:00:00 89 mm[Hg] NPI:1 [id number] pressure Body temperature 2022-03-18 13:40:00 36.61 Lissy Body weight 2022-03-18 13:40:00 88.451 kg NPI:1831 470385 BMI 2022-03-18 13:40:00 28.80 kg/m2 NPI:1831 [id number] Systolic blood pressure 2021-12-11 19:11:00 134 mm[Hg] Diastolic blood 2021-12-11 19:11:00 89 mm[Hg] NPI:1 [id number] pressure Heart rate 2021-12-11 19:09:00 100 /min NPI:1831 435782 Body temperature 2021-12-11 19:09:00 36.94 Lissy Respiratory rate 2021-12-11 19:09:00 16 /min Body height 2021-12-11 19:09:00 175.3 cm NPI:1831 328221 Body weight 2021-12-11 19:09:00 85.73 kg NPI:1831 [id number] BMI 2021-12-11 19:09:00 27.91 kg/m2 NPI:1831 144177 Oxygen saturation in 2021-12-11 19:09:00 99 /min Arterial blood by Pulse oximetry Systolic blood pressure 2021-11-30 16:22:00 115 mm[Hg] Diastolic blood 2021-11-30 16:22:00 81 mm[Hg] NPI:1 [id number] pressure Heart rate 2021-11-30 16:17:00 86 /min NPI:1831 441937 Body temperature 2021-11-30 16:17:00 36.5 Lissy Respiratory rate 2021-11-30 16:17:00 16 /min Body height 2021-11-30 16:17:00 175.3 cm NPI:1831 089403 Body weight 2021-11-30 16:17:00 86.456 kg NPI:1831 011347 BMI 2021-11-30 16:17:00 28.15 kg/m2 NPI:1831 783819 Oxygen saturation in 2021-11-30 16:17:00 96 /min Arterial blood by Pulse oximetry Systolic blood pressure 2021-11-23 23:12:00 135 mm[Hg] Diastolic blood 2021-11-23 23:12:00 91 mm[Hg] NPI:1 [id number] pressure Heart rate 2021-11-23 23:09:00 97 /min NPI:1831 [id number] Body temperature 2021-11-23 23:09:00 36.72 Lissy Respiratory rate 2021-11-23 23:09:00 19 /min Body height 2021-11-23 23:09:00 175.3 cm NPI:1831 [id number] Body weight 2021-11-23 23:09:00 88.225 kg NPI:1831 [id number] BMI 2021-11-23 23:09:00 28.72 kg/m2 NPI:1831 062397 Oxygen saturation in 2021-11-23 23:09:00 99 /min Arterial blood by Pulse oximetry Procedures Procedure Date / Time Performed Performing Clinician Sourc e TROPONIN I 2022-03-18 16:07:00 Guanaco Lutz NPI:[id number] URINALYSIS 2022-03-18 14:31:00 Guanaco Lutz NPI:[id number] XR CHEST 1 VW 2022-03-18 14:20:27 Guanaco Lutz NPI:[id number] TROPONIN I 2022-03-18 14:15:00 Guanaco Lutz NPI:[id number] COMP. METABOLIC PANEL 2022-03-18 14:15:00 Guanaco Lutz NPI:18 [id number] ([id number]) CBC WITH DIFF 2022-03-18 14:15:00 Guanaco Lutz NPI:[id number] 81 VBG+VCOOX+NA+K+GLU+CA2+ 2022-03-18 14:15:00 Guanaco Lutz Encounters Start End Encounter Admission Attending Care Care Encounter Source Date/Time Date/Time Type Type Clinicians Facility Department ID 2022-03-18 2022-03-18 Emergency X [facility] ERT [id number] NPI:183 08:35:00 12:30:00 GUANACO [id number] 1 2022-03-18 2022-03-18 Emergency [facility] [id number] NPI:183 08:35:00 12:30:00 Guanaco ZALDIVAR 350.1.13.10 1 [id number] [place] 4.2.7.2.686 [place] [id number] 2021-12-20 2021-12-20 Vicente Balbuena [facility] 1.2.840.114 [id number] NPI:183 00:00:00 00:00:00 Devika ZALDIVAR 350.1.13.10 [id number] [place] 4.2.7.2.686 [place] [id number] NAL 059 [facility] 2021-12-12 2021-12-12 Violette Gonzalez 1.2.840.114 [id number] NPI:183 00:00:00 00:00:00 (Out) ANTHONY 350.1.13.10 13 [id number] [facility] 4.2.7.2.686 [id number] 2021-12-11 2021-12-11 Outpatient Jovanni DAY [facility] [id number] NPI:183 13:20:00 13:46:14 FATUMA [id number] 2021-12-11 2021-12-11 Urgent Fatuma Day [facility] 1.2.840.114 [id number] NPI:183 13:20:00 13:46:14 Care Mulu Calle [facility] 350.1.13.10 [id number] [place] 4.2.7.2.686 [place] [id number] [place] [address] MED[facility] OFFICE [facility] 2021-12-11 2021-12-11 Outpatient R [facility] [id number] NPI:183 13:00:00 13:00:00 [id number] 2021-11-30 2021-11-30 [id number] NPI:183 10:20:00 11:11:13 ALEXANDRE [id number] 2021-11-30 2021-11-30 Urgent Dilia Shea [facility] 1.2.840.114 [id number] NPI:183 10:20:00 10:40:00 Hansa Franny [facility] 350.1.13.10 [id number] [place] 4.2.7.2.686 [place] [id number] [address] OFFICE [facility] 2021-11-30 2021-11-30 Outpatient R [facility] [id number] -[id number] NPI:183 10:20:00 10:20:00 [id number] 2021-11-23 2021-11-23 [id number] NPI:183 17:00:00 17:38:39 INDER [id number] 1 2021-11-23 2021-11-23 Urgent Inder Nugent [facility] 1.2.840.114 [id number] NPI:183 17:00:00 17:20:00 Hansa Daniel [facility] 350.1.13.10 [id number] [place] 4.2.7.2.686 [place]?BLEA [id number] [address] OFFICE [facility] 2021-11-23 2021-11-23 Outpatient R [facility] [id number] -[id number] NPI:183 17:00:00 17:00:00 [id number] 2021-11-21 2021-11-21 Laboratory Only, Ang Db Test [facility] 1.2.8 40.114 [id number] NPI:183 11:15:00 11:30:31 Only Unknown, Attending HEALTH 350.1.13.10 [id number] Dilia SheaMARISELA 4.2.7.2.686 [place] [id number] [place] [address] [facility] 2021-11-21 2021-11-21 Outpatient R SHABBIR [facility] [id number] NPI:183 11:15:00 11:30:31 DILIA [id number] 1 Results Test Description Test Time Test Comments Results Result Comments Source TROPONIN I 2022-03-18 17:00:43 Test Item Value Reference Range Interpretation Comme nts TROPONIN I (test code = 0.018 ng/mL See_Comment [Au tomated message] The [id number]) system which ge nerated this result tra nsmitted reference range : <=0.034. The reference r lorna was not used to int erpret this result as normal/abnormal . JEAN (test code = JEAN) Reference (Normal) Range (defined by the 99th percentile reference limit): <= 0.034 ng/mL Note: Cardiac troponin begins to rise 3-4 hours after the onset of ischemia. Repeat in 4-6 hours if the sample was drawn within 3-4 hours of the onset of the symptom and found normal. Diagnosis of myocardial injury is made with acute changes in cTn concentrations with at least one serial sample above the 99th percentile upper reference limit (URL), taken together with the patient's clinical presentation. Biotin has been reported to cause a negative bias, interpret results relative to patient's use of biotin. Lab Interpretation Normal (test code = 25575-3) NPI:[id number] [id number] 14:55:10 Test Item Value Reference Interpretation Comments Range TROPONIN I (test 0.018 ng/mL See_Comment [Automated code = 6570239219) message] The system which generated this result transmitted reference range : <=0.034. The reference range was not used to interpret this result as normal/abnormal . JEAN (test code = Reference (Normal) JEAN) Range (defined by the 99th percentile reference limit): <= 0.034 ng/mL Note: Cardiac troponin begins to rise 3-4 hours after the onset of ischemia. Repeat in 4-6 hours if the sample was drawn within 3-4 hours of the onset of the symptom and found normal. Diagnosis of myocardial injury is made with acute changes in cTn concentrations with at least one serial sample above the 99th percentile upper reference limit (URL), taken together with the patient's clinical presentation. Biotin has been reported to cause a negative bias, interpret results relative to patient's use of biotin. Lab Interpretation Normal (test code = 11391-0) NPI:[id number] WITH [id number] 14:46:26 Test Item Value Reference Range Interpretation Comments WBC (test code = See_Comment [Automated 7718-2) message] The sy stem which generated this result transmitted reference range : 4.20 - 10.70 10*3/?L. The reference range was not used to interpret this result as normal/abnormal . RBC (test code = See_Comment [Automated 136-8) message] The sy stem which generated this result transmitted reference range : 4.26 - 5.52 10*6/?L. The reference range was not used to interpret this result as normal/abnormal . HGB (test code = 12.8 g/dL 12.2-16.4 718-7) HCT (test code = 41.1 % 38.4-49.3 4544-3) MCV (test code = 83.4 fL 81.7-95.6 787-2) MCH (test code = 26.0 pg 26.1-32.7 L 785-6) MCHC (test code = 31.1 g/dL 31.2-35.0 L 786-4) RDW-SD (test code = 37.5 fL 38.5-51.6 L 46703-8) RDW-CV (test code = 12.4 % 12.1-15.4 788-0) PLT (test code = See_Comment [Automated 677-3) message] The sy stem which generated this result transmitted reference range : 150 - 328 10*3/ ?L. The reference r lorna was not used to interpret this result as normal/abnormal . MPV (test code = 10.1 fL 9.8-13.0 22823-4) NRBC/100 WBC (test See_Comment [Automat ed code = 7584828726) message] The system which generated this result transmitted reference range : 0.0 - 10.0 /100 WBCs. The refer ence range was not u sed to interpret th is result as normal/abnormal . NRBC x10^3 (test code <0.01 See_Comment [Auto mated = 3713102519) message] The s ystem which generated this result transmitted reference range : 10*3/?L. The reference range was not used to interpret this result as normal/abnormal . GRAN MAT (NEUT) % 70.9 % (test code = 770-8) IMM GRAN % (test code 0.30 % = 1673491858) LYMPH % (test code = 20.8 % 736-9) MONO % (test code = 6.0 % 5905-5) EOS % (test code = 1.5 % 713-8) BASO % (test code = 0.5 % 706-2) GRAN MAT x10^3(ANC) 6.83 10*3/uL 1.99-6.95 (test code = 5113893323) IMM GRAN x10^3 (test 0.03 10*3/uL 0.00-0.06 code = 4359338160) LYMPH x10^3 (test code 2.00 10*3/uL 1.09-3.23 = 731-0) MONO x10^3 (test code 0.58 10*3/uL 0.36-1.02 = 742-7) EOS x10^3 (test code = 0.14 10*3/uL 0.06-0.53 711-2) BASO x10^3 (test code 0.05 10*3/uL 0.01-0.09 = 704-7) Lab Interpretation Abnormal (test code = 75587-3) NPI:[id number]. METABOLIC PANEL (53770)2022-03-18 14:44:30 Test Item Value Reference Range Interpretation Comments NA (test code = 138 mmol/L 135-145 4456625799) K (test code = 5.5 mmol/L 3.5-5.0 H 5804683808) CL (test code = 103 mmol/L 98-108 1207374829) CO2 TOTAL (test code = 26 mmol/L 23-31 3289012616) AGAP (test code = 2-16 5766368265) BUN (test code = 30 mg/dL 7-23 H 3328850831) GLUCOSE (test code = 206 mg/dL 70-110 H 0234376133) CREATININE (test code = 1.62 mg/dL 0.60-1.25 H 8667772117) TOTAL BILI (test code = 1.1 mg/dL 0.1-1.6 9834248930) CALCIUM (test code = 9.2 mg/dL 8.6-10.6 8882402930) T PROTEIN (test code = 7.7 g/dL 6.3-8.2 7940536846) ALBUMIN (test code = 4.5 g/dL 3.5-5.0 3088170391) ALK PHOS (test code = 42 U/L 34-122 0392224573) ALTv (test code = 19 U/L 5-50 2-6) AST(SGOT) (test code = 32 U/L 13-40 8786119894) eGFR (test code = mL/min/1.73m2 2458356293) JEAN (test code = JEAN) Association of Glomerular Filtration Rate (GFR) and Staging of Kidney Disease* + --+ --+ ------+| GFR (mL/min/1.73 m2) ?| With Kidney Damage ?| ?Without Kidney Damage+ --------+ --------+ +| ?>90 ?| ?Stage one ?| ? Normal ?+ ---+ ---+ -------+| ?60-89 ?| ?Stage two ?| ? Decreased GFR ? + --+ --+ ------+| ?30-59 ?| ?Stage three ?| ? Stage three ? + --+ --+ ------+| ?15-29 ?| ?Stage four ? | ? Stage four ?+ ---+ ---+ -------+| ?<15 (or dialysis) ? ?| ?Stage five ? | ? Stage five ?+ ---+ ---+ -------+ *Each stage assumes the associated GFR level has been in effect for at least three months. ?Stages 1 to 5, with or without kidney disease, indicate chronic kidney disease. Notes: Determination of stages one and two (with eGFR >59mL/min/1.73 m2) requires estimation of kidney damage for at least three months as defined by structural or functional abnormalities of the kidney, manifested by either:Pathological abnormalities or Markers of kidney damage (including abnormalities in the composition of the blood or urine or abnormalities in imaging tests). Lab Interpretation Abnormal (test code = 82045-7) NPI:[id number] 14:26:57 Test Item Value Reference Range Interpretation Comments PH (test code = 7.32-7.42 [id number]) PCO2 ORION (test code = See_Comment [Auto mated message] [id number]) The system [employer] generated this result transmit alisson reference range : 41 - 51 mmHg. The reference range was not used to interpret this result as normal/abnormal . PO2 ORION (test code = See_Comment [Autom ated message] [id number]) The system [employer] generated this result transmit alisson reference range : 25 - 40 mmHg. The reference range was not used to interpret this result as normal/abnormal . HCO3 ORION (test code = See_Comment [Auto mated message] [id number]) The system [employer] generated this result transmit alisson reference range : 24 - 28 mEq/L. The reference range was not used to interpret this result as normal/abnormal . AC VBE(BEAKER) (test mEq/L code = 9055110191) THB ORION (test code = 13.9 g/dL 13.5-18.0 1103667927) %O2HB ORION (test code = 55.5 % 52.0-63.0 [id number]) %COHB ORION (test code = 1.5 % 0.0-1.5 4866003119) %METHB ORION (test code = 0.1 % 0.4-1.5 L [id number]) VOL%O2 ORION (test code = 10.8 % 6.0-12.0 1917232008) NA (test code = 138 mmol/L 135-145 8981898769) K+ (test code = 4.8 mmol/L 3.5-5.0 8514639286) AC CA IONZ (test code = 4.70 mg/dL 4.50-5.30 9275380560) GLUCOSE (test code = 205 mg/dL 70-110 H [id number]) Lab Interpretation Abnormal (test code = 34427-2) "
[2022-04-03] MEDS ORDERED: ONDANSETRON 4 MG/2 ML VIAL ONE (00:32)
[2022-04-03] MEDS ORDERED: NA CHLORIDE 0.9% 1,000 ML ONE (00:32)
[2022-04-03 00:39] LABS: Absolute Lymphocytes (CBC) 3.1 K/uL (0.7-4.9); Hematocrit 40.5 % (39.6-49.0); Lymphocytes % 34.3 % (15.3-44.8); MPV 8.2 fL (7.6-11.3)
[2022-04-03 00:54] LABS: ALT/SGPT 29 U/L (12-78); AST/SGOT 13 U/L (15-37); Albumin 3.6 g/dL (3.4-5.0); Alkaline Phosphatase 59 U/L (45-117); BUN Blood Urea Nitrogen 24 mg/dL (7-18); Bicarbonate 25 mmol/L (21-32); Bilirubin Total 0.3 mg/dL (0.2-1.0); Glucose Level 340 mg/dL (74-106); Lipase 173 U/L (73-393); Potassium 3.7 mmol/L (3.5-5.1); Protein, Total 7.7 g/dL (6.4-8.2); Sodium Level 136 mmol/L (136-145); Troponin High Sensitivity 4.7 pg/mL (<58.9)
[2022-04-03 00:58] LABS: Urine Blood Trace-intact (Negative); Urine Glucose 3+ (Negative); Urine Protein Negative (Negative)
--- NOTE | 2022-04-03 02:47 | EDPHYS ---
Physician Documentation [facility] Name: Erick Bosch Age: 56 yrs Sex: Male : 1965 Arrival Date: 04/02/2022 Time: 23:40 Bed 14 Private MD: ED Physician Ozzy Vora HPI: 04/03 02:43 This 56 yrs old Black Male presents to ER via Ambulatory with complaints of Vomiting, rn Headache, High Blood Sugar. 02:43 The patient presents to the emergency department with nausea, vomiting, diarrhea. rn Onset: The symptoms/episode began/occurred yesterday. Possible causes: unknown. The symptoms are aggravated by nothing. The symptoms are alleviated by nothing. Associated signs and symptoms: Pertinent positives: diarrhea, nausea, vomiting, Pertinent negatives: fever, GI bleeding. Severity of symptoms: At their worst the symptoms were moderate in the emergency department the symptoms are unchanged. The patient has not experienced similar symptoms in the past. The patient has not recently seen a physician. Pt reports headache, nausea/vomiting/diarrhea since yesterday. No head injury or trauma. Reports checked blood sugar and was elevated. Compliant with insulin and HTN medication. No focal neuro complaint. No abd pain. No blood in stool. . Historical: - Allergies: 00:03 metformin; lp1 - Home Meds: 00:03 lisinopril 40 mg Oral tab 1 tab once daily [Active]; levemir 50 units once daily lp1 [Active]; Levemir U-100 Insulin 30 unit BID subcutaneous soln [Active]; novalog flexpen 12 units before every meal [Active]; Novolin R Sub-Q [Active]; gabapentin 300 mg Oral cap daily [Active]; atorvastatin 80 mg Oral tab 1 tab once daily [Active]; Victoza 2-Henry subcutaneous [Active]; - PMHx: 00:03 Diabetes - IDDM; High Cholesterol; Hypertension; neck pain; lp1 - PSHx: 00:03 Lithotripsy; lp1 - Immunization history:: Adult Immunizations up to date, Client reports receiving the 2nd dose of the Covid vaccine. - Social history:: Smoking status: Patient denies any tobacco usage or history of. - Family history:: not pertinent. - Hospitalizations: : No recent hospitalization is reported. ROS: 02:43 Constitutional: Negative for fever, chills, and weight loss, Eyes: Negative for injury, rn pain, redness, and discharge, Neck: Negative for injury, pain, and swelling, Cardiovascular: Negative for chest pain, palpitations, and edema, Respiratory: Negative for shortness of breath, cough, wheezing, and pleuritic chest pain, Abdomen/GI: Negative for abdominal pain and constipation, Back: Negative for injury and pain, MS/Extremity: Negative for injury and deformity, Skin: Negative for injury, rash, and discoloration, Neuro: Negative for weakness, numbness, tingling, and seizure. Exam: 02:43 Constitutional: This is a well developed, well nourished patient who is awake, alert, rn and in no acute distress. Head/Face: Normocephalic, atraumatic. Eyes: Periorbital areas with no swelling, redness, or edema. Cardiovascular: Regular rate and rhythm. No pulse deficits. Respiratory: Speaking full sentences, unlabored. No increased work of breathing, no retractions or nasal flaring. Abdomen/GI: Soft, non-tender Skin: Warm, dry MS/ Extremity: Pulses equal, no cyanosis. Neuro: Awake and alert, GCS 15, oriented to person, place, time, and situation. Cranial nerves II-XII grossly intact. Motor strength 5/5 in all extremities. Sensory grossly intact. Vital Signs: 00:00 BP 168 / 105; Pulse 86; Resp 18; Temp 98.1(O); Pulse Ox 100% on R/A; Weight 87.09 kg; lp1 Height 5 ft. 9 in. (175.26 cm); Pain 0/10; 00:47 BP 185 / 95; Pulse 72; Resp 16; Pulse Ox 99% on R/A; Pain 0/10; mary 01:56 BP 151 / 99; Pulse 72; Resp 16; Pulse Ox 100% on R/A; Pain 0/10; mary 02:59 BP 152 / 98; Pulse 70; Resp 18; Temp 97.3; Pulse Ox 100% on R/A; Pain 0/10; mary 00:00 Body Mass Index 28.35 (87.09 kg, 175.26 cm) lp1 MDM: 04/02 23:47 Patient medically screened. rn 04/03 02:43 Differential diagnosis: viral gastroenteritis, gastroenteritis, viral syndrome, rn hyperglycemia, DKA, HHS, migraine, HTN. Data reviewed: vital signs, nurses notes, lab test result(s), EKG, radiologic studies, CT scan, and as a result, I will discharge patient. Counseling: I had a detailed discussion with the patient and/or guardian regarding: the historical points, exam findings, and any diagnostic results supporting the discharge/admit diagnosis, lab results, radiology results, the need for outpatient follow up, to return to the emergency department if symptoms worsen or persist or if there are any questions or concerns that arise at home. Counseling: I had a detailed discussion with the patient and/or guardian regarding: the presence of at least one elevated blood pressure reading (>120/80) during this emergency department visit. Response to treatment: the patient's symptoms have markedly improved after treatment, and as a result, I will discharge patient. Special discussion: I have referred the patient to see his PCP for further evaluation of high blood pressure. I discussed with the patient/guardian in detail that at this point there is no indication for admission to the hospital. It is understood, however, that if the symptoms persist or worsen the patient needs to return immediately for re-evaluation. Based on the history and exam findings, there is no indication for further emergent testing or inpatient evaluation. I discussed with the patient/guardian the need to see the primary care provider for further evaluation of the symptoms. ED course: Pt feels better, no vomiting here, no ketones or acidosis, ct head neg, will dc home with return precautions. . 04/03 00:05 Order name: CBC with Diff; Complete Time: rn 04/03 00:05 Order name: CMP; Complete Time: rn 04/03 00:05 Order name: Lipase; Complete Time: rn 04/03 00:05 Order name: Ketone, Serum; Complete Time: rn 04/03 00:05 Order name: Troponin High Sensitivity; Complete Time: rn 04/03 00:09 Order name: Glucose, Ancillary Testing; Complete Time: EDMS 04/03 00:05 Order name: IV Start; Complete Time: 00: rn 04/03 00:05 Order name: Glucose Level; Complete Time: 00: rn 04/03 00:05 Order name: EKG; Complete Time: 00: rn 04/03 00:59 Order name: Urine Dipstick-Ancillary; Complete Time: 01:57 EDMS 04/03 01:05 Order name: Head Brain Wo Cont EDMS 04/03 00:05 Order name: Urine Dipstick-Ancillary (obtain specimen); Complete Time: 00:46 rn 04/03 00:05 Order name: EKG - Nurse/Tech; Complete Time: 00:46 rn 04/03 00:05 Order name: Cardiac monitoring; Complete Time: 00:25 rn Administered Medications: 00:36 Drug: NS 0.9% 1000 ml Route: IV; Rate: 1000 ml; Site: right antecubital; mary 01:47 Follow up: IV Status: Completed infusion; IV Intake: 1000ml mary 00:36 Drug: Zofran (Ondansetron) 4 mg Route: IVP; Site: right antecubital; mary 01:47 Follow up: Response: No adverse reaction mary Disposition Summary: 04/03/22 02:47 Discharge Ordered Location: Home rn Problem: new rn Symptoms: have improved rn Condition: Stable rn Diagnosis - Hyperglycemia, unspecified rn - Headache rn - Essential (primary) hypertension rn Followup: rn - With: Private Physician - When: As needed - Reason: Recheck today's complaints, Re-evaluation by your physician Discharge Instructions: - Discharge Summary Sheet rn - General Headache Without Cause rn - Hyperglycemia rn - Hypertension, Adult rn - Blood Glucose Monitoring, Adult rn Forms: - Medication Reconciliation Form rn - Thank You Letter rn - Antibiotic chief internal auditor - Prescription Opioid Use rn - Work release form wm Prescriptions: - ondansetron 4 mg Oral tablet,disintegrating - place 1 tablet by TRANSLINGUAL route every 8 hours As needed; 15 tablet; rn Refills: 0, Product Selection Permitted Signatures: Dispatcher [employer] EDMS Ozzy Vora MD MD rn Pena, Laura RN RN lp1 Nicolasa White RN RN mary Corrections: (The following items were deleted from the chart) 01:05 00:06 Head Brain W/ Wo Con+CT.RAD.BRZ ordered. EDMS EDMS
--- NOTE | 2022-04-03 02:47 | ER ---
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 Coronavirus screen: At this time, the client does not indicate any symptoms associated with coronavirus-19. Ebola Screen: No symptoms or risks identified at this time. Initial Sepsis Screen: Does the patient meet any 2 criteria? No. Patient's initial sepsis screen is negative. Does the patient have a suspected source of infection? No. Patient's initial sepsis screen is negative. Risk Assessment: Do you want to hurt yourself or someone else? Patient reports no desire to harm self or others. Onset of symptoms was April 03, 2022. 00:00 Method Of Arrival: Ambulatory lp1 00:00 Acuity: ARNOL 3 lp1 Triage Assessment: 00:48 General: Appears in no apparent distress. Behavior is calm, cooperative. mary 00:49 GI: Reports nausea, vomiting. mary 00:49 Pain: Denies pain. mary Historical: - Allergies: 00:03 metformin; lp1 - Home Meds: 00:03 lisinopril 40 mg Oral tab 1 tab once daily [Active]; levemir 50 units once daily lp1 [Active]; Levemir U-100 Insulin 30 unit BID subcutaneous soln [Active]; novalog flexpen 12 units before every meal [Active]; Novolin R Sub-Q [Active]; gabapentin 300 mg Oral cap daily [Active]; atorvastatin 80 mg Oral tab 1 tab once daily [Active]; Victoza 2-Henry subcutaneous [Active]; - PMHx: 00:03 Diabetes - IDDM; High Cholesterol; Hypertension; neck pain; lp1 - PSHx: 00:03 Lithotripsy; lp1 - Immunization history:: Adult Immunizations up to date, Client reports receiving the 2nd dose of the Covid vaccine. - Social history:: Smoking status: Patient denies any tobacco usage or history of. - Family history:: not pertinent. - Hospitalizations: : No recent hospitalization is reported. Screenin:48 Abuse screen: Denies threats or abuse. Denies injuries from another. Nutritional mary screening: No deficits noted. Tuberculosis screening: No symptoms or risk factors identified. Fall Risk None identified. Assessment: 00:46 Reassessment: Patient appears in no apparent distress at this time. I recv'd the pt to mary room #14 \T\ 2345. All orders have been completed. His is at bedside. The pt is in NAD. 00:49 GI: Abdomen is flat, non-distended. mary 02:35 Reassessment: Patient appears in no apparent distress at this time. Awaiting dispo. mary Vital Signs: 00:00 BP 168 / 105; Pulse 86; Resp 18; Temp 98.1(O); Pulse Ox 100% on R/A; Weight 87.09 kg; lp1 Height 5 ft. 9 in. (175.26 cm); Pain 0/10; 00:47 BP 185 / 95; Pulse 72; Resp 16; Pulse Ox 99% on R/A; Pain 0/10; mary 01:56 BP 151 / 99; Pulse 72; Resp 16; Pulse Ox 100% on R/A; Pain 0/10; mary 02:59 BP 152 / 98; Pulse 70; Resp 18; Temp 97.3; Pulse Ox 100% on R/A; Pain 0/10; mary 00:00 Body Mass Index 28.35 (87.09 kg, 175.26 cm) lp1 ED Course: 04/02 23:40 Patient arrived in ED. bp1 23:47 Ozzy Vora MD is Attending Physician. rn 23:59 Arm band placed on right wrist. lp1 04/03 00:03 Triage completed. lp1 00:09 Nicolasa White, ALLI is Primary Nurse. mary 00:25 Troponin High Sensitivity Sent. mary 00:25 Ketone, Serum Sent. mary 00:25 Lipase Sent. mary 00:25 CMP Sent. mayr 00:25 CBC with Diff Sent. mary 00:46 Troponin High Sensitivity Sent. mary 00:46 Ketone, Serum Sent. mary 00:46 Lipase Sent. mary 00:46 CMP Sent. mary 00:48 No provider procedures requiring assistance completed. mary 00:49 Bed in low position. Call light in reach. Adult w/ patient. mary 01:31 Head Brain Wo Cont In Process Unspecified. EDMS 01:31 Urine collected: clean catch specimen, cloudy. wm 02:59 intact, bleeding controlled, No redness/swelling at site. Pressure dressing applied. mary Administered Medications: 00:36 Drug: NS 0.9% 1000 ml Route: IV; Rate: 1000 ml; Site: right antecubital; mary 01:47 Follow up: IV Status: Completed infusion; IV Intake: 1000ml mary 00:36 Drug: Zofran (Ondansetron) 4 mg Route: IVP; Site: right antecubital; mary 01:47 Follow up: Response: No adverse reaction mary Intake: 01:47 IV: 1000ml; Total: 1000ml. mary Outcome: 00:49 Condition: stable mary 02:47 Discharge ordered by MD. rn 03:00 Discharged to home ambulatory, with family. mary 03:00 Discharge instructions given to patient, Instructed on discharge instructions, follow up and referral plans. Demonstrated understanding of instructions, follow-up care, medications, Prescriptions given X 1. 03:01 Patient left the ED. mary Signatures: Dispatcher [employer] EDMS Ozzy Vora MD MD rn Pena, Laura, RN RN lp1 Muna Olea Wendy Nicolasa White, RN RN mary
[2022-04-03 04:06] VITALS: O2SAT 100
[2022-04-03 04:08] VITALS: BP 152/98; TEMP 97.3
--- NOTE | 2022-04-03 07:30 | EKG ---
Test Date: 2022-04-03 Test Time: 00:38:26 Underwriting Analyst: MEASUREMENT RESULTS: Intervals: Rate: 78 CT: 180 QRSD: 90 QT: 414 QTc: 471 [place]: P: 64 CT: 180 QRS: 72 T: 43 INTERPRETIVE STATEMENTS: Normal sinus rhythm Normal ECG Compared to ECG 01/11/2022 14:08:28 No significant changes Electronically Signed On 04-03-22 07:29:44 CDT by Rory Ford
--- NOTE | 2022-04-03 12:44 | RAD REPORT ---
EXAM DESCRIPTION: Head Brain Wo Cont 04/03/2022 1:43 AM CDT CLINICAL HISTORY: 56 years, Male, Headache, new or worsening COMPARISON: 07/22/2018 TECHNIQUE: Multiple transaxial tomograms of the brain were obtained from the base of the skull to th e vertex without contrast. 2-D multiplanar reformats and the coronal and sagittal plane were performe d and reviewed. This exam was performed according to our departmental dose-optimization protocol, which includes auto mated exposure control, adjustment of the mA and/or kV according to patient size and/or use of iterat an reconstruction technique. FINDINGS: Brain parenchyma as well as the preston and white matter differentiation demonstrate to be un remarkable. There is no midline shift and/or mass effect. There is no evidence for acute hemorrhage. No focal areas of hypodensities. Lateral ventricles and cisterns displace normal appearance. No i ntra or extra axial fluid collections were seen. The calvarium is intact with no evidence for fractur e. The visualized portions of the paranasal sinuses and orbits demonstrate to be clear. IMPRESSION: No acute intracranial hemorrhage identified. Electronically signed by: Abraham Andrade MD 04/03/2022 1:45 AM CDT Due to temporary technical issues with the PACS/Fluency reporting system, reports are being signed by the in house radiologist without review as a courtesy to ensure prompt reporting. The interpreting r adiologist is fully responsible for the content of the report
== END 2022-04-03 03:01 | disposition home or self-care (01) ==
LOC: ER 23:38
DX: E11.65 Type 2 diabetes mellitus with hyperglycemia (principal); I10 Essential (primary) hypertension; E78.00 Pure hypercholesterolemia, unspecified; Z79.4 Long term (current) use of insulin; Z88.8 Allergy status to other drugs, medicaments and biological substances
CPT/HCPCS: 96361; 93005; 85025; 36415; 82010; 82947; 81003; 84484; 83690; 80053; 70450; 96374; 99284; J7030; J2405

== ENCOUNTER 2023-04-16 07:42 | Emergency (ER) | payer BC ==
--- OUTSIDE RECORDS SUMMARY | 2023-04-16 07:47 | XMS REPORT | Continuity of Care Document ---
:1965 Author Organization [facility] t Address [address] [place] [address] [address] [place] [address] Care Team Providers Name Role Phone PETRA CHAMORRO Primary Care Physician Unavailable TONY CALLE Attending Clinician Unavailable Tony Hamilton Attending Clinician Unknown, Attending Attending Clinician Unavailable Doctor Unassigned, [place] Attending Clinician Unavailable GUANACO LUTZ Attending Clinician Unavailable Guanaco Lutz DO Attending Clinician Debbie DENNIS, Sendesdras K.H. Attending Clinician Violette Mcmahon RN Attending Clinician Unavailable FATUMA DAY Attending Clinician Unavailable Fatuma Park Attending Clinician MUNA BLANTON Attending Clinician Unavailable Dilia Shea MD Attending Clinician Muna Lerma Attending Clinician INDER NUGENT Attending Clinician Unavailable Inder Nugent PA-C Attending Clinician Only, Ang Db Test Attending Clinician Unavailable DILIA SHEA Attending Clinician Unavailable CARLITO BERGERON Attending Clinician Unavailable Nurse, Adc Pob Immunization Attending Clinician Unavailable Carlito Bergeron DO Attending Clinician INES LEWIS K.H. Attending Clinician Unavailable Ale Celeste DO Attending Clinician YUDELKA WOLFF Attending Clinician Unavailable GUANACO LUTZ Admitting Clinician Unavailable Payers Payer Name Policy Type Policy Number Effective Date Expiration Date Mario yanez [facility] [id number] 2017 00:00:00 [employer] [id number] 1998 00:00:00 [facility] [id number] 1998 00:00:00 Problems Condition Condition Condition Status Onset Resolution Last Treating Co mments Source Name Details Category Date Date Treatment Clinician Date Postural Postural Disease Active Unive rs dizziness dizziness 1-23 ity of with with 00:00: [place] presyncope presyncope 00 Il dical Branch Allergies, Adverse Reactions, Alerts Allergy Allergy Status Severity Reaction(s) Onset Inactive Treating Comm ents Source Name Type Date Date Clinician METFORMI DRUG Active Diarrhea Univer s N INGREDI 8-05 ity of 00:00: [place] 00 Medical Branch Metformi Propensi Active Diarrhea Univ ers n ty to 05 ity of adverse 00:00: [place] reaction 00 Medical s Branch NO KNOWN Drug Active Univers ALLERGIE Class ity of S [facility] Social History Social Habit Start Date Stop Date Quantity Comments Source Exposure to 2022-09-05 2022-09-15 Not sure [facility] SARS-CoV-2 00:00:00 09:08:00 [facility] (event) [place] Alcohol intake 2022-03-18 2022-03-18 Current [facility] 00:00:00 00:00:00 non-drinker of [facility] alcohol (finding) [place] Tobacco use and 2017-08-19 2017-08-19 Smokeless tobacco Un iversity of exposure 00:00:00 00:00:00 non-user [facility] Sex Ass[birth year] At [birth year] Universit y of 00:00:00 00:00:00 [facility] Smoking Status Start Date Stop Date Source Never smoked tobacco [facility] Medications Ordered Filled Start Stop Current Ordering Indication Dosage Frequency Signature Comments Components Source Medication Medication Date Date Medication? Clinician (SIG) Name Name INSULIN 2021-11 Yes 22U inject 22 Unive rs DETEMIR 0-23 Units ity of ([place] 09:20[place] FLEXTOU[place] skin. Medical [place]) Branch gabapentin 2021-11 Yes Take by Univ ers 300 mg 0-23 mouth. ity of tablet 09:20: [place] 59 Medical Branch atorvastati 2021-11 Yes 80mg Take 80 mg Univers n 80 mg 0-23 by mouth ity of tablet 09:20: at [place] [address] bedtime. Medical Branch empaglifloz 2021-11 Yes 25mg Take 25 mg Univers in 25 mg 0-23 by mouth. ity of Tab 09:20: [place] 59 Medical Branch OZEMPIC 2021-11 Yes Univers 0.25 mg or 0-18 ity of 0.5 mg(2 00:00: [place] mg/1.5 mL) 00 Medical PnIj Branch empaglifloz Yes 25mg Take 25 mg Univers in 25 mg 4-27 by mouth. ity of Tab 00:30: [place] 04 Medical Branch NaCl 0.9% 1000mL at 999 Uni vers (NS) bolus 4-25 04-25 mL/hr, ity of infusion 14:15: 15:45 1,000 mL, Jonny as 1,000 mL 00 :00 IV Medical Infusion, Branch ONCE, 1 dose, On Fri03/18/22 at 0915, STAT empaglifloz Yes 25mg Take 25 mg Univers in 25 mg 4-25 by mouth. ity of Tab 10:35: [place] 23 Medical Branch INSULIN Yes 22U inject 22 Unive rs DETEMIR 4-25 Units ity of (LEVEMIR 08:42: under the [facility] FLEXTOUCH 52 skin. Medical SC) Branch gabapentin Yes Take by Univ ers 300 mg 4-25 mouth. ity of tablet 08:42: [address] Branch atorvastati Yes 80mg Take 80 mg Univers n 80 mg 4-25 by mouth ity of tablet 08:42: at [place] [address] bedtime. Medical Branch INSULIN Yes 22U inject 22 Unive rs DETEMIR 4-25 Units ity of (LEVEMIR 08:42: under the [facility] s FLEXTOUCH 52 skin. Medical SC) Branch gabapentin Yes Take by Univ ers 300 mg 4-25 mouth. ity of tablet 08:42: [place] [address] Medical Branch atorvastati Yes 80mg Take 80 mg Univers n 80 mg 4-25 by mouth ity of tablet 08:42: at [place] 52 bedtime. Medical Branch AMLODIPINE 2021-0 Yes [id number] TAKE 1 U nivers 5 mg tablet 1-27 TABLET BY ity of 00:00: MOUTH [place] 00 EVERY DAY Medical Branch AMLODIPINE 2021-0 Yes [id number] TAKE 1 U nivers 5 mg tablet 1-27 TABLET BY ity of 00:00: MOUTH [place] 00 EVERY DAY Medical Branch AMLODIPINE 2021-0 Yes [id number] TAKE 1 U nivers 5 mg tablet 1-27 TABLET BY ity of 00:00: MOUTH [place] 00 EVERY DAY Medical Branch AMLODIPINE 2021-0 Yes [id number] TAKE 1 U nivers 5 mg tablet 1-27 TABLET BY ity of 00:00: MOUTH [place] 00 EVERY DAY Medical Branch atorvastati 0 Yes 80mg Take 80 mg Univers n 80 mg 1-07 by mouth ity of tablet 10:18: at [place] [address] bedtime. Medical Branch atorvastati 0 Yes 80mg Take 80 mg Univers n 80 mg 1-07 by mouth ity of tablet 10:18: at [place] [address] bedtime. Medical Branch atorvastati 0 Yes 80mg Take 80 mg Univers n 80 mg 1-07 by mouth ity of tablet 10:18: at [place] [address] bedtime. Medical Branch atorvastati 0 Yes 80mg Take 80 mg Univers n 80 mg 1-07 by mouth ity of tablet 10:18: at [place] [address] bedtime. Medical Branch benzonatate 2021-0 Yes [id number] 200mg Take 2 Univers 100 mg 1-07 capsules ity of capsule 00:00: [place] 2 [place] (two) Medical times Branch daily as needed for Cough. guaiFENesin 2021-0 Yes [id number] 400mg Take 1 Univers 400 mg 1-07 tablet by ity of tablet 00:00: mouth [place] 00 every 4 Medical (four) Branch hours as needed for Cough. ondansetron 2021-0 Yes [id number] 4mg Take 1 Univers 4 mg 1-07 tablet by ity of disintegrat 00:00: mouth [place] ing tablet 00 every 8 Medica l (eight) Branch hours as needed for Nausea and Vomiting (N/V). benzonatate 2021-0 Yes [id number] 200mg Take 2 Univers 100 mg 1-07 capsules ity of capsule 00:00: [place] mouth 2 [place] (two) Medical times Branch daily as needed for Cough. guaiFENesin 2022-0 Yes [id number] 400mg Take 1 Univers 400 mg 1-07 tablet by ity of tablet 00:00: mouth [place] 00 every 4 Medical (four) Branch hours as needed for Cough. ondansetron 2022-0 Yes [id number] 4mg Take 1 Univers 4 mg 1-07 tablet by ity of disintegrat 00:00: mouth [place] ing tablet 00 every 8 Medica l (eight) Branch hours as needed for Nausea and Vomiting (N/V). benzonatate 2022-0 Yes [id number] 200mg Take 2 Univers 100 mg 1-07 capsules ity of capsule 00:00: [place] mouth 2 [place] (two) Medical times Branch daily as needed for Cough. guaiFENesin 2022-0 Yes [id number] 400mg Take 1 Univers 400 mg 1-07 tablet by ity of tablet 00:00: mouth [place] 00 every 4 Medical (four) Branch hours as needed for Cough. ondansetron 2022-0 Yes [id number] 4mg Take 1 Univers 4 mg 1-07 tablet by ity of disintegrat 00:00: mouth [place] ing tablet 00 every 8 Medica l (eight) Branch hours as needed for Nausea and Vomiting (N/V). benzonatate 2022-0 Yes [id number] 200mg Take 2 Univers 100 mg 1-07 capsules ity of capsule 00:00: [place] mouth 2 [place] (two) Medical times Branch daily as needed for Cough. guaiFENesin 2022-0 Yes [id number] 400mg Take 1 Univers 400 mg 1-07 tablet by ity of tablet 00:00: mouth [place] 00 every 4 Medical (four) Branch hours as needed for Cough. ondansetron 2022-0 Yes [id number] 4mg Take 1 Univers 4 mg 1-07 tablet by ity of disintegrat 00:00: mouth [place] ing tablet 00 every 8 Medica l (eight) Branch hours as needed for Nausea and Vomiting (N/V). benzonatate 2022-0 Yes [id number] 200mg Take 2 Univers 100 mg 1-07 capsules ity of capsule 00:00: [place] mouth 2 [place] (two) Medical times Branch daily as needed for Cough. guaiFENesin 2022-0 Yes [id number] 400mg Take 1 Univers 400 mg 1-07 tablet by ity of tablet 00:00: mouth [place] 00 every 4 Medical (four) Branch hours as needed for Cough. ondansetron 2022-0 Yes [id number] 4mg Take 1 Univers 4 mg 1-07 tablet by ity of disintegrat 00:00: mouth [place] ing tablet 00 every 8 Medica l (eight) Branch hours as needed for Nausea and Vomiting (N/V). benzonatate 2022-0 Yes [id number] 200mg Take 2 Univers 100 mg 1-07 capsules ity of capsule 00:00: [place] mouth 2 [place] (two) Medical times Branch daily as needed for Cough. guaiFENesin 2022-0 Yes [id number] 400mg Take 1 Univers 400 mg 1-07 tablet by ity of tablet 00:00: mouth [place] 00 every 4 Medical (four) Branch hours as needed for Cough. ondansetron 2022-0 Yes [id number] 4mg Take 1 Univers 4 mg 1-07 tablet by ity of disintegrat 00:00: mouth [place] ing tablet 00 every 8 Medica l (eight) Branch hours as needed for Nausea and Vomiting (N/V). benzonatate 2022-0 Yes [id number] 200mg Take 2 Univers 100 mg 1-07 capsules ity of capsule 00:00: [place] mouth 2 [place] (two) Medical times Branch daily as needed for Cough. guaiFENesin 2022-0 Yes [id number] 400mg Take 1 Univers 400 mg 1-07 tablet by ity of tablet 00:00: mouth [place] 00 every 4 Medical (four) Branch hours as needed for Cough. ondansetron 2022-0 Yes [id number] 4mg Take 1 Univers 4 mg 1-07 [...] by mouth ity of tablet 09:49: at [place] 14 bedtime. Medical Branch atorvastati Yes 80mg Take 80 mg Univers n 80 mg 4-15 by mouth ity of tablet 09:49: at [place] 14 bedtime. Medical Branch INSULIN Yes 22U inject 22 Unive rs DETEMIR 3-03 Units ity of (LEVEMIR 08:57: [place] FLEXTOU[place] 48 skin. Medical [place]) Branch gabapentin Yes Take by Univ ers 300 mg 3-03 mouth. ity of tablet 08:57: [place] 48 Medical Branch INSULIN 0 Yes 22U inject 22 Unive rs DETEMIR 3-03 Units ity of (LEVEMIR 08:57: [place] FLEXTOUCH 48 skin. Medical [place]) Branch gabapentin 0 Yes Take by Univ ers 300 mg 3-03 mouth. ity of tablet 08:57: [address] INSULIN 2020-0 Yes 22U inject 22 Unive rs DETEMIR 3-03 Units ity of (LEVEMIR 08:57: [place] FLEXTOU[place] 48 skin. Medical [place]) Branch gabapentin 0 Yes Take by Univ ers 300 mg 3-03 mouth. ity of tablet 08:57: [address] INSULIN 2020-0 Yes 22U inject 22 Unive rs DETEMIR 3-03 Units ity of (LEVEMIR 08:57: [place] FLEXTOUCH 48 skin. Medical ME) Branch gabapentin 0 Yes Take by Univ ers 300 mg 3-03 mouth. ity of tablet 08:57: [address] INSULIN 2020-0 Yes 22U inject 22 Unive rs DETEMIR 3-03 Units ity of (LEVEMIR 08:57: [place] FLEXTOUCH 48 skin. Medical ME) Branch gabapentin 0 Yes Take by Univ ers 300 mg 3-03 mouth. ity of tablet 08:57: [address] INSULIN 0 Yes 22U inject 22 Unive rs DETEMIR 3-03 Units ity of (LEVEMIR 08:57: [place] FLEXTOUCH 48 skin. Medical ME) Branch gabapentin 0 Yes Take by Univ ers 300 mg 3-03 mouth. ity of tablet 08:57: [address] lisinopriL 202-0 Yes 10mg Take 1 Unive rs 10 mg 3-03 tablet by ity of tablet 00:00: mouth 2 [place] (two) Medical times Branch daily. lisinopriL 2021-0 Yes 10mg Take 1 Unive rs 10 mg 3-03 tablet by ity of tablet 00:00: mouth 2 [place] (two) Medical times Branch daily. lisinopriL 2021-0 [...] tablet by ity of tablet 00:00: mouth (two) Medical times Branch daily. lisinopriL 2021-0 Yes 10mg Take 1 Unive rs 10 mg 3-03 tablet by ity of tablet 00:00: mouth 2 (two) Medical times Branch daily. lisinopriL 2021-0 Yes 10mg Take 1 Unive rs 10 mg 3-03 tablet by ity of tablet 00:00: mouth 2 (two) Medical times Branch daily. loratadine 2016-11 Yes 10mg Take 10 mg U nivers (CLARITIN) 2-01 by mouth ity o f 10 mg 00:00: daily. [place] tablet Medical Branch loratadine 2016-11 Yes 10mg Take 10 mg U nivers (CLARITIN) 2-01 by mouth ity o f 10 mg 00:00: daily. [place] tablet Medical Branch loratadine 2016-11 Yes 10mg Take 10 mg U nivers (CLARITIN) 2-01 by mouth ity o f 10 mg 00:00: daily. [place] tablet Medical Branch loratadine 2016-11 Yes 10mg Take 10 mg U nivers (CLARITIN) 2-01 by mouth ity o f 10 mg 00:00: daily. [place] tablet [facility] Branch loratadine 2016-11 Yes 10mg Take 10 mg U nivers (CLARITIN) 2-01 by mouth ity o f 10 mg 00:00: daily. [place] tablet [facility] Branch loratadine 2016-11 Yes 10mg Take 10 mg U nivers (CLARITIN) 2-01 by mouth ity o f 10 mg 00:00: daily. [place] tablet 00 Medical Branch loratadine 2016-11 Yes 10mg Take 10 mg U nivers (CLARITIN) 2-01 by mouth ity o f 10 mg 00:00: daily. [place] tablet 00 Medical Branch loratadine 2016-11 Yes 10mg Take 10 mg U nivers (CLARITIN) 2-01 by mouth ity o f 10 mg 00:00: daily. [place] tablet 00 Medical Branch loratadine 2016-11 Yes 10mg Take 10 mg U nivers (CLARITIN) 2-01 by mouth ity o f 10 mg 00:00: daily. [place] tablet 00 Medical Branch Immunizations Ordered Filled Immunization Date Status Comments [facility] e Immunization Name Name SARS-COV-2 COVID-19 2021-10-12 Completed Unive rsity of MODERNA BOOSTER 00:00:00 [facility] [place] [facility] ical VACCINE Branch SARS-COV-2 COVID-19 2021-10-12 Completed Unive rsity of MODERNA BOOSTER 00:00:00 [facility] [place] [facility] ical VACCINE Branch SARS-COV-2 COVID-19 2021-10-12 Completed Unive rsity of MODERNA BOOSTER 00:00:00 [facility] [place] [facility] ical VACCINE Branch SARS-COV-2 COVID-19 2021-10-12 Completed Unive rsity of MODERNA BOOSTER 00:00:00 [place] [facility] ical VACCINE Branch SARS-COV-2 COVID-19 2021-10-12 Completed Unive rsity of MODERNA BOOSTER 00:00:00 [facility] [place] [facility] ical VACCINE Branch SARS-COV-2 COVID-19 2021-10-12 Completed Unive rsity of MODERNA BOOSTER 00:00:00 [place] Med ical VACCINE Branch SARS-COV-2 COVID-19 2021-10-12 Completed Unive rsity of MODERNA BOOSTER 00:00:00 [place] Med ical VACCINE Branch SARS-COV-2 COVID-19 2021-10-12 Completed Unive rsity of MODERNA 0.25ML 00:00:00 [place] Medi matt BOOSTER VACCINE Branch SARS-COV-2 COVID-19 2021-10-12 Completed Unive rsity of MODERNA 0.25ML 00:00:00 [place] Medi matt BOOSTER VACCINE Branch SARS-COV-2 COVID-19 2021-01-24 Completed Unive [...] COVID-19 2021-01-24 Completed Unive rsity of MODERNA 12+ YRS 00:00:00 [place] Med ical VACCINE Branch SARS-COV-2 COVID-19 2021-01-24 Completed Unive rsity of MODERNA 12+ YRS 00:00:00 [place] Med ical VACCINE Branch SARS-COV-2 COVID-19 2020-12-26 Completed Unive rsity [...] COVID-19 2020-12-26 Completed Unive rsity of MODERNA 12+ YRS 00:00:00 [place] Med ical VACCINE Branch SARS-COV-2 COVID-19 2020-12-26 Completed Unive rsity of MODERNA 12+ YRS 00:00:00 [place] Med ical VACCINE Branch Vital Signs Vital Name Observation Time Observation Value Comments Source Systolic blood 2022-09-15 14:20:00 165 mm[Hg] Univer sity of pressure [place] [facility] Diastolic blood 2022-09-15 14:20:00 101 mm[Hg] Unive rsity of pressure [place] [facility] Heart rate 2022-09-15 14:20:00 93 /min Universi ty of [facility] Body temperature 2022-09-15 14:20:00 37.06 Lissy Univ ersity of [place] [facility] Respiratory rate 2022-09-15 14:20:00 17 /min Univ ersity of [place] [facility] Body height 2022-09-15 14:20:00 175.3 cm Universi ty of [place] [facility] Body weight 2022-09-15 14:20:00 86.41 kg Universi ty of [place] [facility] BMI 2022-09-15 14:20:00 28.13 kg/m2 Universi ty [facility] Medical [place] Oxygen saturation in 2022-09-15 14:20:00 100 /min University of Arterial blood by [facility] Pulse oximetry Branch Heart rate 2022-03-18 17:30:00 79 /min Universi ty of [place] [facility] Respiratory rate 2022-03-18 17:30:00 15 /min Univ ersity of [place] [facility] Oxygen saturation in 2022-03-18 17:30:00 100 /min University of Arterial blood by [facility] Pulse oximetry Branch Systolic blood 2022-03-18 16:00:00 131 mm[Hg] Univer sity of pressure [place] [facility] Diastolic blood 2022-03-18 16:00:00 89 mm[Hg] Unive rsity of pressure [place] [facility] Body temperature 2022-03-18 13:40:00 36.61 Lissy Univ ersity of [place] [facility] Body weight 2022-03-18 13:40:00 88.451 kg Universi ty of [place] [facility] BMI 2022-03-18 13:40:00 28.80 kg/m2 Universi ty of [place] [facility] Systolic blood 2021-12-11 19:11:00 134 mm[Hg] Univer sity of pressure [place] [facility] Diastolic blood 2021-12-11 19:11:00 89 mm[Hg] Unive rsity of pressure [place] [facility] Heart rate 2021-12-11 19:09:00 100 /min Universi ty of [place] [facility] Body temperature 2021-12-11 19:09:00 36.94 Lissy Univ ersity of [place] [facility] Respiratory rate 2021-12-11 19:09:00 16 /min Univ ersity of [place] [facility] Body height 2021-12-11 19:09:00 175.3 cm Universi ty of [place] [facility] Body weight 2021-12-11 19:09:00 85.73 kg Universi ty of [place] [facility] BMI 2021-12-11 19:09:00 27.91 kg/m2 Universi ty of [place] [facility] Oxygen saturation in 2021-12-11 19:09:00 99 /min University of Arterial blood by [facility] matt Pulse oximetry Branch Systolic blood 2021-11-30 16:22:00 115 mm[Hg] Univer sity of pressure [place] [facility] Diastolic blood 2021-11-30 16:22:00 81 mm[Hg] Unive rsity of pressure [place] [facility] Heart rate 2021-11-30 16:17:00 86 /min Universi ty of [place] [facility] Body temperature 2021-11-30 16:17:00 36.5 Lissy Univ ersity of [place] [facility] Respiratory rate 2021-11-30 16:17:00 16 /min Univ ersity of [place] [facility] Body height 2021-11-30 16:17:00 175.3 cm Universi ty of [place] [facility] Body weight 2021-11-30 16:17:00 86.456 kg Universi ty of [place] [facility] BMI 2021-11-30 16:17:00 28.15 kg/m2 Universi ty of [place] [facility] Oxygen saturation in 2021-11-30 16:17:00 96 /min University of Arterial blood by [facility] matt Pulse oximetry Branch Systolic blood 2021-11-23 23:12:00 135 mm[Hg] Univer sity [facility] Diastolic blood 2021-11-23 23:12:00 91 mm[Hg] [facility] Heart rate 2021-11-23 23:09:00 97 /min [facility] Body temperature 2021-11-23 23:09:00 36.72 Lissy [facility] Respiratory rate 2021-11-23 23:09:00 19 /min [facility] Body height 2021-11-23 23:09:00 175.3 cm [facility] Body weight 2021-11-23 23:09:00 88.225 kg [facility] BMI 2021-11-23 23:09:00 28.72 kg/m2 [facility] Oxygen saturation in 2021-11-23 23:09:00 99 /min [facility] Arterial blood by [facility] Pulse oximetry Branch Procedures Procedure Date / Time Performed Performing Clinician Karon e POCT MOLECULAR FLU 2022-09-15 14:25:00 Unknown, Attending [facility] POCT GLUCOSE 2022-09-15 14:23:00 Unknown, Attending [facility] (AUTOMATED) [facility] POCT MOLECULAR STREP 2022-09-15 14:23:00 Unknown, Attending [facility] CONSENT/REFUSAL FOR 2022-09-15 14:07:32 Doctor Unassigned, No Un [facility] DIAGNOSIS AND Name Medical Branch TREATMENT TROPONIN I 2022-03-18 16:07:00 Singer [facility] URINALYSIS 2022-03-18 14:31:00 Singer [facility] XR CHEST 1 VW 2022-03-18 14:20:27 Singer [facility] TROPONIN I 2022-03-18 14:15:00 Singer [facility] COMP. METABOLIC PANEL 2022-03-18 14:15:00 Guanaco Lutz [facility] ([id number]) [facility] CBC WITH DIFF 2022-03-18 14:15:00 Singer [facility] VBG+VCOOX+NA+K+GLU+CA2 2022-03-18 14:15:00 Guanaco Lutz rsity [facility] Encounters Start End Encounter Admission Attending Care Care Encounter Source Date/Time Date/Time Type Type Clinicians Facility Department ID 2021-09-23 Emergency [facility] [id number] Univers 14:28:56 ity of [facility] 2021-09-23 Emergency [facility] [id number] Univers 00:58:21 ity of [facility] 2022-09-15 2022-09-15 Outpatient R IKE [facility] [id number] Univers 09:20:00 09:40:41 TONY biggs o f [facility] 2022-09-15 2022-09-15 Urgent Tony Calle [facility] [id number] .[id number] Univers 09:20:00 09:40:41 Care Unknown, Attending HEALTH [id number] [place]y of [place] [id number] Jonny as CHETNA?BLEA [phone] [address] MEDICAL OFFICE BUILDING 2022-09-15 2022-09-15 Orders Doctor INDER [id number] Univers 00:00:00 00:00:00 Only Unassigned, ANTHONY [id number] ity of [place] [facility] [id number] Jonny as [id number] [facility] 009 [place] 2022-03-18 2022-03-18 Emergency X [facility] ERT [id number] Univers 08:35:00 12:30:00 GUANACO biggs of [facility] 2022-03-18 2022-03-18 Emergency [facility] [id number] Univers 08:35:00 12:30:00 Guanaco ZALDIVAR [id number] i ty of [place] [id number] [place] [id number] [facility] 084 [place] 2021-12-20 2021-12-20 Vicente Lewis [facility] [id number] Univers 00:00:00 00:00:00 Ines ZALDIVAR [id number] ity [facility] 4.2.7.2.686 [place] [id number] Me dical NAL 059 [facility] 2021-12-12 2021-12-12 Violette Gonzalez [id number] Univers 00:00:00 00:00:00 (Out) EUSTIS [id number] it y of [facility] 4.2.7.2.686 Jon[place] as [id number] [address] 2021-12-11 2021-12-11 Outpatient R BARB [facility] [id number] Univers 13:20:00 13:46:14 [facility] 2021-12-11 2021-12-[address] [facility] [id number] Univers 13:20:00 13:46:14 Tony Read [facility] [id number] ity [facility] [id number] Jonny as CHETNA?BLEA [phone] Il dicrebekah [facility] [address] [place] MEDICAL OFFICE [facility] 2021-11-30 2021-11-30 Outpatient R FRANNY [facility] [id number] Univers 10:20:00 11:11:13 MUNA biggs o f [facility] 2021-11-30 2021-11-30 Urgent Shabbir Dilia [facility] [id number] Univers 10:20:00 10:40:00 Nadja ArndtExcela [facility] [id number] ity [facility] [id number] Jonny as CHETNA?BLEA [phone] [place] dicrebekah [address] MEDICAL OFFICE [facility] 2021-11-23 2021-11-23 Outpatient R WILLIAN [facility] [id number] Univers 17:00:00 17:38:39 INDER biggs [facility] 2021-11-23 2021-11-23 Urgent Inder Nugent [facility] [id number] Univers 17:00:00 17:20:00 [facility] [id number] ity of [place] 4.2.7.2.686 Jonny as CHETNA?BLEA [phone] [address] MEDICAL OFFICE [facility] 2021-11-21 2021-11-21 Laboratory Only, Ang Db Test [facility] 1.2.8 40.114 [id number] Univers 11:15:00 11:30:31 Only Unknown, Attending HEALTH [id number] ity of Dilia She[place] 4.2.7.2.686 [place] CHETNA?BLEA [id number] [address] 2021-11-21 2021-11-21 Outpatient R SHABBIR [facility] [id number] Univers 11:15:00 11:30:31 DILIA kalyan [facility] 2021-11-21 2021-11-21 Outpatient R SHABBIR [facility] [id number] Univers 11:15:00 11:15:00 DILIA johny [facility] 2021-11-21 2021-11-21 Letter Doctor INDER [id number] Univers 00:00:00 00:00:00 (Out) Unassigned, ANTHONY 350.1.13.10 ity of [place] [facility] [id number] Jonny as [phone] [address] 2021-11-21 2021-11-21 Letter Doctor INDER [id number] Univers 00:00:00 00:00:00 (Out) Unassigned, ANTHONY 350.1.13.10 ity of [place] [facility] [id number] Jonny as [phone] [address] 2021-10-12 2021-10-12 Outpatient R RUBIO [facility] [id number] Univers 13:20:00 13:20:00 CARLITO biggs [facility] 2021-10-12 2021-10-12 Imm/Inj Nurse, Adc Pob Immunization [facility] 1.2.840.114 [id number] Univers 12:56:47 13:01:42 Visit Carlito Bergeron 350.1.13 .10 [facility] [place] [phone] Il dical NAL 421 [facility] 2021-09-12 2021-09-12 [facility] [id number] Univers 09:30:00 09:30:00 SENDIL ity of [facility] 2021-09-11 2021-09-11 Orders Doctor INDER 1.2.840.114 [id number] Univers 00:00:00 00:00:00 Only Unassigned, ANTHONY 350.1.13.10 [email or web address] 4.2.7.2.686 Jonny as [phone] [facility] [address] 2021-03-14 2021-03-14 Emergency [facility] 1.2.840.114 [id number] Univers 16:31:00 18:38:00 Ale Zaldivar 350.1.13.10 [place] [phone] [facility] [address] 2021-03-08 2021-03-08 Office Debbie [facility] 1.2.840.114 [id number] Univers 09:03:08 09:54:57 Visit Sendil Derik Zaldivar 350.1.13.10 [place] [phone] Il dical nal 059 [facility] 2021-03-08 2021-03-08 Outpatient R DEBBIE [facility] [id number] Univers 09:30:00 09:30:00 SENDIL ity [facility] 2021-02-15 2021-02-15 [facility] [id number] Univers 00:00:00 00:00:00 Sendil Derik Zaldivar 350.1.13.10 [place] [phone] Il dical nal 059 [facility] 2021-02-08 2021-02-08 Outpatient R DEBBIE [facility] [id number] Univers 08:15:00 08:15:00 SENDIL ity [facility] 2021-02-08 2021-02-08 [facility] 1.2.840.114 [id number] Univers 07:41:59 07:41:59 Encounter Sendesdras Zaldivar 350.1.13.10 ity of [place] 4.2.7.2.686 [facility] [phone] [address] 2021-02-08 2021-02-08 [facility] 1.2.840.114 [id number] Univers 07:41:45 07:41:45 Encounter Sendil Derik Zaldivar 350.1.13.10 ity of [place] 4.2.7.2.686 [facility] [phone] [address] 2021-02-08 2021-02-08 [facility] 1.2.840.114 [id number] Univers 07:40:53 07:40:53 Encounter Sendesdras Zaldivar 350.1.13.10 ity of [place] 4.2.7.2.686 [facility] [phone] [address] 2021-02-08 2021-02-08 [facility] 1.2.840.114 [id number] Univers 07:40:24 07:40:24 Encounter Ines Zaldivar 350.1.13.10 ity of [place] 4.2.7.2.686 [facility] [id number] [address] 2021-02-08 2021-02-08 Outpatient R DEBBIE [facility] [id number] Univers 07:40:24 07:40:24 SENDIL marisoly [facility] 2021-01-24 2021-01-24 Outpatient R NEW [facility] [id number] Univers 10:10:00 10:10:00 YUDELKA biggs [facility] 2021-01-24 2021-01-24 [facility] 1.2.840.114 [id number] Univers 08:52:08 09:44:16 Visit Ines Zaldivar 350.1.13.10 ity of [place] 4.2.7.2.686 [facility] [phone] Il dical nal 059 [facility] 2021-01-23 2021-01-23 Outpatient Jovanni WOLFF [facility] [id number] Univers 15:50:00 15:50:00 YUDELKA [facility] 2021-01-17 2021-01-17 Emergency [facility] [id number] [facility] 06:18:00 08:54:00 [place]an[place] Zaldivar 350.1.13.10 i ty edgard Frausto 4.2.7.2.686 [facility] [phone] [facility] [address] 2020-12-26 2020-12-26 [facility] [id number] Univers 15:50:00 15:50:[address] [facility] 2020-12-26 2020-12-26 Outpatient [facility] [id number] Univers 15:50:00 15:50:[address] [facility] Results Test Description Test Time Test Comments Results Result Comments Source POCT MOLECULAR FLU 2022-09-15 14:37:24 Test Item Value Reference Range Interpretation Comme nts POCT Molecular FluA (test code = 51755-1) Negative Negative POCT Molecular FluB (test code = 29130-0) Negative Negative Lab Interpretation (test code = 14604-1) Normal [facility] MOLECULAR [id number] 14:30:51 Test Item Value Reference Range Interpretation Comments POCT Molecular Strep (test code = Negative Negative 50685-0) Lab Interpretation (test code = Normal 34337-3) [facility] GLUCOSE (AUTOMATED)2022-09-15 14:27:35 Test Item Value Reference Range Interpretation Comments POCT GLU (test code = 7415533045) 112 mg/dL 70-110 H Lab Interpretation (test code = Abnormal 68327-2) [facility] [id number] 17:00:43 Test Item Value Reference Interpretation Comments Range TROPONIN I (test 0.018 ng/mL See_Comment [Automated code = 2381811304) message] The system which generated this result [...] biotin. Lab Interpretation Normal (test code = 37226-4) [facility] [id number] 14:55:10 Test Item Value Reference Interpretation Comments Range TROPONIN I (test 0.018 ng/mL See_Comment [Automated code = 3085890820) message] The system which generated this result [...] biotin. Lab Interpretation Normal (test code = 75012-2) [facility] WITH [id number] 14:46:26 Test Item Value Reference Range Interpretation Comments WBC (test code = See_Comment [Automated 7390-2) message] The sy stem which generated this result transmitted reference range : 4.20 - 10.70 10*3/?L. The reference range was not used to interpret this result as normal/abnormal . RBC (test code = See_Comment [Automated 469-8) message] The sy stem which generated this [...] (test code = 37.5 fL 38.5-51.6 L 78937-9) RDW-CV (test code = 12.4 % 12.1-15.4 788-0) PLT (test code = See_Comment [Automated 777-3) message] The sy stem which generated this result transmitted reference range : 150 - 328 10*3/ ?L. The reference r lorna was not used to interpret this result as normal/abnormal . MPV (test code = 10.1 fL 9.8-13.0 12517-5) NRBC/100 WBC (test See_Comment [Automat ed code = 2828748808) message] The system which generated this result transmitted reference range : 0.0 - 10.0 /100 WBCs. The refer ence range was not u sed to interpret th is result as normal/abnormal . NRBC x10^3 (test code <0.01 See_Comment [Auto mated = 6224897064) message] The s ystem which generated this result transmitted reference range : 10*3/?L. The reference range was not used to interpret this result as normal/abnormal . GRAN MAT (NEUT) % 70.9 % (test code = 770-8) IMM GRAN % (test code 0.30 % = 0541034451) LYMPH % (test code = 20.8 % 736-9) MONO % (test code = 6.0 % 5905-5) EOS % (test code = 1.5 % 713-8) BASO % (test code = 0.5 % 706-2) GRAN MAT x10^3(ANC) 6.83 10*3/uL 1.99-6.95 (test code = 1927006957) IMM GRAN x10^3 (test 0.03 10*3/uL 0.00-0.06 code = 5265851577) LYMPH x10^3 (test code 2.00 10*3/uL 1.09-3.23 = 731-0) MONO x10^3 (test code 0.58 10*3/uL 0.36-1.02 = 742-7) EOS x10^3 (test code = 0.14 10*3/uL 0.06-0.53 711-2) BASO x10^3 (test code 0.05 10*3/uL 0.01-0.09 = 704-7) Lab Interpretation Abnormal (test code = 61205-3) [facility]. METABOLIC PANEL (06545)2022-03-18 14:44:30 Test Item Value Reference Range Interpretation Comments NA (test code = 138 mmol/L 135-145 8940676340) K (test code = 5.5 mmol/L 3.5-5.0 H 4856799083) CL (test code = 103 mmol/L 98-108 8899729050) CO2 TOTAL (test code = 26 mmol/L 23-31 1573777266) AGAP (test code = 2-16 2160450415) BUN (test code = 30 mg/dL 7-23 H 9807183900) GLUCOSE (test code = 206 mg/dL 70-110 H 6560085872) CREATININE (test code = 1.62 mg/dL 0.60-1.25 H 9479901073) TOTAL BILI (test code = 1.1 mg/dL 0.1-1.1 8372074030) CALCIUM (test code = 9.2 mg/dL 8.6-10.6 5919647606) T PROTEIN (test code = 7.7 g/dL 6.3-8.2 2044492117) ALBUMIN (test code = 4.5 g/dL 3.5-5.0 4443682881) ALK PHOS (test code = 42 U/L 34-122 4263178055) ALTv (test code = 19 U/L 5-50 1742-6) AST(SGOT) (test code = 32 U/L 13-40 6301593113) eGFR (test code = mL/min/1.73m2 7483708897) JEAN (test code = JEAN) Association of [...] tests). Lab Interpretation Abnormal (test code = 55921-5) [facility]+VCOOX+NA+K+GLU+CA2+2022-03-18 14:26:57 Test Item Value Reference Range Interpretation Comments PH (test code = 7.32-7.42 9626665167) PCO2 ORION (test code = See_Comment [Auto mated message] 6676302079) The system [employer] generated this result transmit alisson reference range : 41 - 51 mmHg. The reference range was not used to interpret this result as normal/abnormal . PO2 ORION (test code = See_Comment [Autom ated message] 5604215810) The system [employer] generated this result transmit alisson reference range : 25 - 40 mmHg. The reference range was not used to interpret this result as normal/abnormal . HCO3 ORION (test code = See_Comment [Auto mated message] 1745085111) The system [employer] generated this result transmit alisson reference range : 24 - 28 mEq/L. The reference range was not used to interpret this result as normal/abnormal . AC VBE(BEAKER) (test mEq/L code = 6878681333) THB ORION (test code = 13.9 g/dL 13.5-18.0 8526119406) %O2HB ORION (test code = 55.5 % 52.0-63.0 6128810526) %COHB ORION (test code = 1.5 % 0.0-1.5 1104849368) %METHB ORION (test code = 0.1 % 0.4-1.5 L 0241860015) VOL%O2 ORION (test code = 10.8 % 6.0-12.0 5037374663) NA (test code = 138 mmol/L 135-145 0748378358) K+ (test code = 4.8 mmol/L 3.5-5.0 3066315402) AC CA IONZ (test code = 4.70 mg/dL 4.50-5.30 5747621544) GLUCOSE (test code = 205 mg/dL 70-110 H 9850876797) Lab Interpretation Abnormal (test code = 77991-4) [facility]"
[2023-04-16 08:26] LABS: Absolute Lymphocytes (CBC) 3.1 K/uL (0.7-4.9); Hematocrit 44.1 % (39.6-49.0); MCV 81.4 fL (80-100); MPV 7.4 fL (7.6-11.3); RBC Red Blood Cell Count 5.41 M/uL (4.33-5.43)
[2023-04-16 08:51] LABS: Bilirubin Total 0.7 mg/dL (0.2-1.0); Potassium 3.9 mEq/L (3.5-5.1); Protein, Total 8.3 g/dL (6.4-8.2)
[2023-04-16 09:11] LABS: Specific Gravity 1.021 (1.005-1.030); Urine Bacteria None Seen /HPF (<20); Urine Bilirubin NEGATIVE (Negative); Urine Blood Negative (Negative); Urine Clarity Clear (Clear); Urine Color Light-Yellow (Yellow); Urine Glucose 4+ (Over) (Negative); Urine Protein TRACE (Negative); Urine RBC <5 /HPF (None Seen); Urine Urobilinogen Normal (Normal); Urine pH 5.5 (5.0-7.0)
[2023-04-16] MEDS ORDERED: KETOROLAC 30 MG/ML INJ ONE (09:14)
[2023-04-16] MEDS ORDERED: NA CHLORIDE 0.9% 1,000 ML ONE (09:15)
--- NOTE | 2023-04-16 10:16 | ER ---
Nurse's Notes [facility] Name: Erick Bosch Age: 57 yrs Sex: Male : 1965 Arrival Date: 04/16/2023 Time: 07:42 Bed 16 Private MD: Valdez Nogueira Diagnosis: Low back pain Presentation: 04/16 07:52 Chief complaint: Patient states: this morning my BS was 350 and i've been a having a iw headache for 3 days and my left lower back has been hurting for 2 days , BS is usually 120 in the morning. Coronavirus screen: At this time, the client does not indicate any symptoms associated with coronavirus-19. Ebola Screen: Patient negative for fever greater than or equal to 101.5 degrees Fahrenheit, and additional compatible Ebola Virus Disease symptoms Patient denies exposure to infectious person. Patient denies travel to an Ebola-affected area in the 21 days before illness onset. No symptoms or risks identified at this time. Initial Sepsis Screen: Does the patient meet any 2 criteria? No. Patient's initial sepsis screen is negative. Does the patient have a suspected source of infection? No. Patient's initial sepsis screen is negative. Risk Assessment: Do you want to hurt yourself or someone else? Patient reports no desire to harm self or others. 07:52 Method Of Arrival: Ambulatory iw 07:52 Acuity: ARNOL 3 iw 08:15 Onset of symptoms was April 16, 2023. ll1 Historical: - Allergies: 07:53 metformin; iw - PMHx: 07:53 Diabetes - IDDM; High Cholesterol; Hypertension; neck pain; iw - PSHx: 07:53 Lithotripsy; iw - Immunization history:: Client reports receiving the 2nd dose of the Covid vaccine. - Social history:: Smoking status: Patient denies any tobacco usage or history of. Screenin:14 [facility] ED Fall Risk Assessment (Adult) Score/Fall Risk Level 0 - 2 = Low Risk ll1 Oriented to surroundings, Maintained a safe environment, Educated pt \T\ family on fall prevention, incl call for assistance when getting out of bed, Hourly rounding (assess needs \T\ fall precautionary measures) done. Abuse screen: Denies threats or abuse. Nutritional screening: No deficits noted. Tuberculosis screening: No symptoms or risk factors identified. Assessment: 08:14 General: Appears in no apparent distress. Behavior is calm, cooperative, appropriate ll1 for age. General: Reports high blood sugar this morning. Pain: Denies pain. GI: Patient currently denies constipation, diarrhea, nausea, vomiting. 08:55 Reassessment: Patient appears in no apparent distress at this time. Patient and/or nj1 family updated on plan of care and expected duration. Pain level reassessed. Patient is alert, oriented x 3, equal unlabored respirations, skin warm/dry/pink. Pain: Complains of pain in left arm Pain currently is 5 out of 10 on a pain scale. 08:55 Reassessment: Dr Dahl notified of patients pain. Order for EKG received. nj1 09:49 Reassessment: Patient appears in no apparent distress at this time. Patient and/or nj1 family updated on plan of care and expected duration. Pain level reassessed. Patient is alert, oriented x 3, equal unlabored respirations, skin warm/dry/pink. Pain: Complains of pain in left arm Pain currently is 5 out of 10 on a pain scale. 10:21 Reassessment: Patient appears in no apparent distress at this time. No changes from [facility] previously documented assessment. 11:19 Reassessment: Patient appears in no apparent distress at this time. Patient is alert, nj1 oriented x 3, equal unlabored respirations, skin warm/dry/pink. Vital Signs: 07:52 BP 150 / 103; Pulse 95; Resp 16; Temp 98.2; Pulse Ox 100% on R/A; Weight 88.9 kg; iw Height 5 ft. 9 in. ; 09:49 BP 145 / 98; Pulse 85; Resp 18; Pulse Ox 100% on R/A; Pain 5/10; nj1 10:21 BP 124 / 81; Pulse 86; Resp 18; Pulse Ox 100% on R/A; Pain 5/10; nj1 11:19 BP 137 / 97; Pulse 76; Resp 18; Pulse Ox 100% on R/A; nj1 07:52 Body Mass Index 28.94 (88.90 kg, 175.26 cm) iw 09:49 Pain Scale: Adult nj1 10:21 Pain Scale: Adult tn1 ED Course: 07:44 Patient arrived in ED. rg4 07:45 Valdez Nogueira MD is Private Physician. rg4 07:50 Olayinka Dahl MD is Attending Physician. bs3 07:53 Triage completed. iw 07:53 Arm band placed on. iw 08:14 Patient has correct armband on for positive identification. Bed in low position. Call ll1 light in reach. Cardiac monitoring not applicable on this patient. 08:14 Inserted saline lock: 22 gauge in left antecubital area, using aseptic technique. Blood ll1 collected. 09:09 Alejandrina Orlando, RN is Primary Nurse. nj1 09:45 XRAY Chest (1 view) In Process Unspecified. EDMS 10:15 Valdez Nogueira MD is Referral Physician. bs3 11:38 No provider procedures requiring assistance completed. IV discontinued, intact, nj1 bleeding controlled. Administered Medications: 09:13 Drug: NS 0.9% IV 1000 ml Route: IV; Rate: 1000 ml; Site: left antecubital; nj1 09:48 Follow up: Response: No adverse reaction nj1 11:30 Follow up: IV Status: Completed infusion; IV Intake: 1000ml nj1 09:14 Drug: Ketorolac IVP 15 mg Route: IVP; Site: left antecubital; nj1 09:48 Follow up: Response: No adverse reaction nj1 Medication: 08:15 VIS not applicable for this client. ll1 Intake: 11:30 IV: 1000ml; Total: 1000ml. nj1 Outcome: 10:16 Discharge ordered by . bs3 11:38 Discharged to home ambulatory. nj1 11:38 Condition: stable 11:38 Discharge instructions given to patient, Instructed on discharge instructions, follow up and referral plans. medication usage, Demonstrated understanding of instructions, follow-up care, medications, Prescriptions given X 1. 11:39 Patient left the ED. nj1 Signatures: Dispatcher [employer] EDIA Marybeth Celeste RN Sharyn Kelly rg4 Geremias Ambrose RN RN ll1 Olayinka Dahl MD MD bs3 Alejandrina Orlando RN RN nj1 Corrections: (The following items were deleted from the chart) 11:19 10:21 BP 124 / 81; Pulse 86bpm; Resp 18bpm; Pulse Ox 100% RA; nj1 nj1
--- NOTE | 2023-04-16 10:17 | EDPHYS ---
Physician Documentation [facility] Name: Erick Bosch Age: 57 yrs Sex: Male : 1965 Arrival Date: 04/16/2023 Time: 07:42 Bed 16 Private MD: Valdez Nogueira ED Physician Olayinka Dahl HPI: 04/16 08:01 This 57 yrs old Black Male presents to ER via Ambulatory with complaints of High Blood bs3 Sugar, Low Back Pain. 08:01 pt with hx of dm on insulin presents with headache, left low back pain and elevated bs3 glucose to 350. Low back pain started 2 days ago assoc with difficutly urinating, no fever, or chills, no numbness, tingling or weakness in his extremiteis, no chest pain or sob, he notes a slight headache as well. No sick contacts, normally glucose concerning . Historical: - Allergies: 07:53 metformin; iw - PMHx: 07:53 Diabetes - IDDM; High Cholesterol; Hypertension; neck pain; iw - PSHx: 07:53 Lithotripsy; iw - Immunization history:: Client reports receiving the 2nd dose of the Covid vaccine. - Social history:: Smoking status: Patient denies any tobacco usage or history of. ROS: 08:18 Constitutional: Negative for fever, chills bs3 08:18 All other systems are negative. Exam: 08:18 Constitutional: This is a well developed, well nourished patient who is awake, alert, bs3 and in no acute distress. Head/Face: Normocephalic, atraumatic. Eyes: Pupils equal round and reactive to light, extra-ocular motions intact. Lids and lashes normal. ENT: mmm, no posterior phyarngeal erythema Neck: Trachea midline, no thyromegaly, no neck stiffness Chest/axilla: Normal chest wall appearance and motion. Nontender with no deformity. No lesions are appreciated. Cardiovascular: Regular rate and rhythm with a normal S1 and S2. symmetric pulses in upper extremities Respiratory: Lungs have equal breath sounds bilaterally, clear to auscultation, no respiratory distress Abdomen/GI: Soft, non-tender, no rebound or guarding Back: paraspinal pain in left low back. MS/ Extremity: Pulses equal, no cyanosis. Neurovascular intact. Full, normal range of motion. Neuro: Awake and alert, GCS 15, oriented to person, place, time, and situation. Cranial nerves II-XII grossly intact. Motor strength 5/5 in all extremities. Sensory grossly intact. Psych: Awake, alert, with orientation to person, place and time. Behavior, mood, and affect are within normal limits. Vital Signs: 07:52 BP 150 / 103; Pulse 95; Resp 16; Temp 98.2; Pulse Ox 100% on R/A; Weight 88.9 kg; iw Height 5 ft. 9 in. ; 09:49 BP 145 / 98; Pulse 85; Resp 18; Pulse Ox 100% on R/A; Pain 5/10; nj1 10:21 BP 124 / 81; Pulse 86; Resp 18; Pulse Ox 100% on R/A; Pain 5/10; nj1 11:19 BP 137 / 97; Pulse 76; Resp 18; Pulse Ox 100% on R/A; nj1 07:52 Body Mass Index 28.94 (88.90 kg, 175.26 cm) iw 09:49 Pain Scale: Adult nj1 10:21 Pain Scale: Adult nj1 MDM: 07:50 Patient medically screened. bs3 08:18 ED course: Glucose only 100s here. bs3 09:05 Data reviewed: vital signs, nurses notes. ED course: Was called to bedside as patient bs3 developed neck/arm pain it is sharp and positional I did an EKG which showed normal sinus rhythm at [address] elevations or depressions QTc 449 Labs notable for elevated creatinine unchanged from baseline. 10:09 ED course: xray negative for acute cardiopulm disease, likely msk, . bs3 10:15 ED course: workup non diagnostic, advised outpatient nephrology f/u within 1 week, bs3 return prec given. 04/16 07:57 Order name: CBC with Diff; Complete Time: 08:35 bs3 04/16 07:57 Order name: Comprehensive Metabolic Panel; Complete Time: 09:03 bs3 04/16 07:57 Order name: Urinalysis w/ reflexes; Complete Time: 09:12 bs3 04/16 08:15 Order name: Glucose, Ancillary Testing; Complete Time: 08:35 EDMS 04/16 09:02 Order name: XRAY Chest (1 view) bs3 04/16 07:50 Order name: Fingerstick Glucose; Complete Time: 08:04 bs3 04/16 08:05 Order name: IV Start; Complete Time: 08:14 ll1 04/16 09:02 Order name: EKG - Nurse/Tech; Complete Time: 09:06 bs3 Administered Medications: 09:13 Drug: NS 0.9% IV 1000 ml Route: IV; Rate: 1000 ml; Site: left antecubital; nj1 09:48 Follow up: Response: No adverse reaction nj1 11:30 Follow up: IV Status: Completed infusion; IV Intake: 1000ml nj1 09:14 Drug: Ketorolac IVP 15 mg Route: IVP; Site: left antecubital; nj1 09:48 Follow up: Response: No adverse reaction nj1 Disposition Summary: 04/16/23 10:16 Discharge Ordered Location: Home bs3 Problem: new bs3 Symptoms: have improved bs3 Condition: Stable bs3 Diagnosis - Low back pain bs3 Followup: bs3 - With: Valdez Nogueira MD - When: - Reason: Re-evaluation by your physician Discharge Instructions: - Discharge Summary Sheet bs3 - Musculoskeletal Pain bs3 Forms: - Work release form ap3 - Medication Reconciliation Form bs3 - Thank You Letter bs3 - Antibiotic Education bs3 - Prescription Opioid Use bs3 Prescriptions: - Cyclobenzaprine 5 mg Oral Tablet - take 1 tablet by ORAL route 3 times per day As needed; 15 tablet; Refills: 0, bs3 Product Selection Permitted Signatures: Dispatcher [employer] Marybeth Mcintosh RN RN iw Geremias Ambrose RN RN ll1 Olayinka Dahl MD MD bs3 Alejandrina Orlando RN RN nj1
--- NOTE | 2023-04-16 10:43 | RAD REPORT ---
EXAM DESCRIPTION: Vickie Single View04/16/2023 9:43 am CLINICAL HISTORY: Chest pain COMPARISON: 2021 FINDINGS: The lungs appear clear of acute infiltrate. The heart is normal size IMPRESSION: No acute abnormalities displayed
[2023-04-16 11:49] VITALS: TEMP 98.2; O2SAT 100
[2023-04-16 11:54] VITALS: BP 137/97
--- NOTE | 2023-04-17 12:34 | EKG ---
Test Date: 2023-04-16 Test Time: 09:03:37 Milieu Manager: KHADAR MEASUREMENT RESULTS: Intervals: Rate: 84 MS: 170 QRSD: 78 QT: 380 QTc: 449 Hollis: P: 72 MS: 170 QRS: 44 T: 63 INTERPRETIVE STATEMENTS: Normal sinus rhythm Normal ECG Compared to ECG 04/03/2022 00:38:26 No significant changes Electronically Signed On 04-17-23 12:31:56 CDT by Rory Ford
== END 2023-04-16 11:39 | disposition home or self-care (01) ==
LOC: ER 07:42
DX: M54.50 Low back pain, unspecified (principal); R51.9 Headache, unspecified; E11.9 Type 2 diabetes mellitus without complications; Z79.4 Long term (current) use of insulin; I10 Essential (primary) hypertension
CPT/HCPCS: 85025; 81001; 36415; 82947; 80053; 71045; J7030; 93005

== ENCOUNTER 2024-03-18 08:28 | Emergency (ER) | payer BC ==
[2024-03-18 09:00] LABS: PT Prothrombin Time 11.7 SECONDS (9.5-12.5); Protime INR 1.07
[2024-03-18 09:02] LABS: Absolute Basophils 0.1 K/uL (0-0.5); Absolute Eosinophils 0.1 K/uL (0-0.5); Absolute Lymphocytes (CBC) 2.9 K/uL (0.7-4.9); Absolute Monocytes 0.9 K/uL (0.1-1.3); Basophils % 0.9 % (0-1.3); Eosinophils % 1.4 % (0-4.4); Hematocrit 40.6 % (39.6-49.0); Lymphocytes % 29.3 % (15.3-44.8); MCH 26.1 pg (27.0-35.0); MCHC 32.1 g/dL (32.0-36.0); MCV 81.4 fL (80-100); MPV 7.8 fL (7.6-11.3); Monocytes % 9.1 % (3.3-12.3); Neutrophils % 59.3 % (41.7-73.7); Platelets 291 thou/uL (152-406); RBC Red Blood Cell Count 4.99 M/uL (4.33-5.43); Red Cell Distribution Width 13.9 % (12.1-15.2)
--- NOTE | 2024-03-18 09:07 | RAD REPORT ---
EXAM DESCRIPTION: RAD - Chest Single View - 03/18/2024 9:00 am CLINICAL HISTORY: CHEST PAIN Chest pain. COMPARISON: Chest Single View dated 01/22/2024; Chest Single View dated 04/16/2023; Chest Single View dated 01/11/2022; Chest Single View dated 11/12/2019 FINDINGS: Portable technique limits examination quality. The lungs are grossly clear. The heart is normal in size. No displaced fractures. IMPRESSION: No acute intrathoracic process suspected.
[2024-03-18] MEDS ORDERED: ONDANSETRON 4 MG/2 ML VIAL ONE (09:09)
[2024-03-18 09:19] LABS: Albumin 3.7 g/dL (3.4-5.0); Albumin/Globulin Ratio 0.9 (1.1-1.8); Anion Gap 8.5 mEq/L (5.0-15.0); Bilirubin Direct 0.2 mg/dL (0-0.2); Bilirubin Indirect, Calculated 0.6 mg/dL (0.2-0.8); Bilirubin Total 0.8 mg/dL (0.2-1.0); Magnesium 2.1 mg/dL (1.6-2.4); Potassium 3.5 mEq/L (3.5-5.1); Protein, Total 7.7 g/dL (6.4-8.2); Troponin High Sensitivity 5.8 pg/mL (<58.9)
--- NOTE | 2024-03-18 11:48 | ER ---
Nurse's Notes [facility] Name: Erick Bosch Age: 58 yrs Sex: Male : 1965 Arrival Date: 03/18/2024 Time: 08:28 Bed 8 Private MD: Valdez Nogueira Diagnosis: Chest tightness, resolved Presentation: 03/18 08:37 Chief complaint: Patient states: Chest tightness since 3 am while at work. Coronavirus ll1 screen: Client denies travel out of the [place] in the last 14 days. At this time, the client does not indicate any symptoms associated with coronavirus-19. Ebola Screen: Patient denies travel to an Ebola-affected area in the 21 days before illness onset. Initial Sepsis Screen: Does the patient meet any 2 criteria? No. Patient's initial sepsis screen is negative. Does the patient have a suspected source of infection? No. Patient's initial sepsis screen is negative. Risk Assessment: Do you want to hurt yourself or someone else? Patient reports no desire to harm self or others. Onset of symptoms was March 18, 2024. 08:37 Method Of Arrival: Ambulatory ll1 08:37 Acuity: ARNOL 2 ll1 Triage Assessment: 08:45 General: Appears in no apparent distress. comfortable, Behavior is calm, cooperative, bp appropriate for age. Pain: Complains of pain in chest. Neuro: Level of Consciousness is awake, alert, obeys commands, Oriented to Appropriate for age. Cardiovascular: Reports chest pain, Rhythm is sinus rhythm. GI: Abdomen is non-distended. Historical: - Allergies: 08:37 metformin; ll1 - PMHx: 08:37 Diabetes - IDDM; High Cholesterol; Hypertension; neck pain; ll1 - PSHx: 08:37 Lithotripsy; ll1 - Immunization history:: Adult Immunizations up to date. - Infectious Disease History:: Denies. - Social history:: Smoking status: Patient denies any tobacco usage or history of. Screenin:45 [facility] ED Fall Risk Assessment (Adult) History of falling in the last 3 months, bp including since admission No falls in past 3 months (0 pts). Abuse screen: Denies threats or abuse. Denies injuries from another. Nutritional screening: No deficits noted. Tuberculosis screening: No symptoms or risk factors identified. Assessment: 08:45 General: SEE TRIAGE NOTE. bp 10:28 Reassessment: Patient appears in no apparent distress at this time. Patient is alert, bp oriented x 3, equal unlabored respirations, skin warm/dry/pink. 11:29 Reassessment: PATIENT TOLERATED WATER FOR PO CHALLENGE. Neuro: Level of Consciousness db is awake, alert, obeys commands. Vital Signs: 08:37 BP 175 / 109; Pulse 99; Resp 17; Temp 97.4; Pulse Ox 100% on R/A; Weight 83.91 kg; ll1 Height 5 ft. 9 in. ; Pain 7/10; 08:45 BP 178 / 112; Pulse 91; Resp 16; Pulse Ox 100% ; bp 10:28 BP 170 / 114; Pulse 81; Resp 15; Pulse Ox 100% ; bp 11:58 BP 163 / 91; Pulse 78; Resp 16; Pulse Ox 100% ; bp 08:37 Body Mass Index 27.32 (83.91 kg, 175.26 cm) ll1 08:37 Pain Scale: Adult ll1 ED Course: 08:29 Patient arrived in ED. rg4 08:30 Valdez Nogueira MD is Private Physician. rg4 08:31 Eligio Lechuga, ALLI is Primary Nurse. bp 08:31 Aristides Lino MD is Attending Physician. sp3 08:37 Arm band placed on Patient placed in an exam room, on a stretcher. ll1 08:38 Triage completed. ll1 08:45 Patient has correct armband on for positive identification. Provided Education on: N/A. bp Client placed on continuous cardiac and pulse oximetry monitoring. NIBP monitoring applied. monitoring coordinator on. Pulse ox on. NIBP on. 08:47 Basic Metabolic Panel Sent. bp 08:47 CBC with Diff Sent. bp 08:47 LFT's Sent. bp 08:47 Magnesium Sent. bp 08:47 NT PRO-BNP Sent. bp 08:47 Troponin HS Sent. bp 08:47 PT-INR Sent. bp 08:47 Inserted saline lock: 22 gauge in right antecubital area, using aseptic technique. bp Blood collected. 09:02 XRAY Chest (1 view) In Process Unspecified. EDMS Administered Medications: 09:12 Drug: Ondansetron IVP 4 mg IVP once; over 2 minutes Route: IVP; Site: right antecubital;db Medication: 08:45 VIS not applicable for this client. bp Outcome: 11:47 Discharge ordered by MD. pandey 12:11 Patient left the ED. ll1 Signatures: Dispatcher [employer] Sharyn Hills rg4 Eligio Lechuga, RN RN Geremias Mcmahon RN RN ll1 Aristides Lino MD MD sp3 Majo Francisco RN RN db
--- NOTE | 2024-03-18 11:48 | EDPHYS ---
Physician Documentation [facility] Name: Erick Boshc Age: 58 yrs Sex: Male : 1965 Arrival Date: 03/18/2024 Time: 08:28 Bed 8 Private MD: Valdez Nogueira ED Physician Aristides Lino HPI: 03/18 09:06 This 58 yrs old Black Male presents to ER via Ambulatory with complaints of Chest sp3 tightness. 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 Patient states he feels like food is not going all the way down. He is also mildly nauseated. The symptoms are almost fully resolved. He has had similar symptoms in the past. Proximal year ago he had a cardiac stress test which was normal at the [facility]. He currently denies any ongoing chest pain other than the very mild tightness that remains, back pain, shortness of breath, left arm pain, neck jaw with dental pain, right-sided pain, or any other anginal equivalents. He also denies syncope, near syncope, fever, URI symptoms, prolonged immobilization, recent travel history, known sick contacts, weight loss, night sweats or any other related symptoms.. Historical: - Allergies: 08:37 metformin; ll1 - PMHx: 08:37 Diabetes - IDDM; High Cholesterol; Hypertension; neck pain; ll1 - PSHx: 08:37 Lithotripsy; ll1 - Immunization history:: Adult Immunizations up to date. - Infectious Disease History:: Denies. - Social history:: Smoking status: Patient denies any tobacco usage or history of. ROS: 09:07 Constitutional: Negative for fever, chills, and weight loss, Eyes: Negative for injury, sp3 pain, redness, and discharge, ENT: Negative for injury, pain, and discharge, Neck: Negative for injury, pain, and swelling, Respiratory: Negative for shortness of breath, cough, wheezing, and pleuritic chest pain, Back: Negative for injury and pain, MS/Extremity: Negative for injury and deformity, Skin: Negative for injury, rash, and discoloration, Neuro: Negative for headache, weakness, numbness, tingling, and seizure, Psych: Negative for depression, anxiety, suicide ideation, homicidal ideation, and hallucinations, Allergy/Immunology: Negative for hives, rash, and allergies, Endocrine: Negative for neck swelling, polydipsia, polyuria, polyphagia, and marked weight changes, Hematologic/Lymphatic: Negative for swollen nodes, abnormal bleeding, and unusual bruising, 09:07 All other systems are negative, Exam: 09:08 Constitutional: This is a well developed, well nourished patient who is awake, alert, sp3 and in no acute distress. Head/Face: Normocephalic, atraumatic. Eyes: Pupils equal round and reactive to light, extra-ocular motions intact. Lids and lashes normal. Conjunctiva and sclera are non-icteric and not injected. Cornea within normal limits. Periorbital areas with no swelling, redness, or edema. ENT: Nares patent. No nasal discharge, no septal abnormalities noted. External auditory canals are clear. Oropharynx with no redness, swelling, or masses, exudates, or evidence of obstruction, uvula midline. Mucous membranes moist. Neck: Trachea midline, no thyromegaly or masses palpated, and no cervical lymphadenopathy. Supple, full range of motion without nuchal rigidity, or vertebral point tenderness. No Meningismus. Chest/axilla: Normal chest wall appearance and motion. Nontender with no deformity. No lesions are appreciated. Cardiovascular: Regular rate and rhythm with a normal S1 and S2. No gallops, murmurs, or rubs. Normal PMI, no JVD. No pulse deficits. Respiratory: Lungs have equal breath sounds bilaterally, clear to auscultation and percussion. No rales, rhonchi or wheezes noted. No increased work of breathing, no retractions or nasal flaring. Abdomen/GI: Soft, non-tender, with normal bowel sounds. No distension or tympany. No guarding or rebound. No evidence of tenderness throughout. Back: No spinal tenderness. No costovertebral tenderness. Full range of motion. Skin: Warm, dry with normal turgor. Normal color with no rashes, no lesions, and no evidence of cellulitis. MS/ Extremity: Pulses equal, no cyanosis. Neurovascular intact. Full, normal range of motion. Neuro: Awake and alert, GCS 15, oriented to person, place, time, and situation. Cranial nerves II-XII grossly intact. Motor strength 5/5 in all extremities. Sensory grossly intact. Cerebellar exam normal. Normal gait. Psych: Awake, alert, with orientation to person, place and time. Behavior, mood, and affect are within normal limits. 09:08 Constitutional: The patient appears Blood pressure 178/112 with a known hypertension history. We will monitor this for now. 09:08 ECG was reviewed by the Attending Physician. EKG demonstrates normal sinus rhythm at 86 bpm with normal intervals and borderline QTc of 459, Q waves in lead III and aVF without any active ST/T discrepancies and only nonspecific changes present. This not significantly different than prior EKG dated January 22, 2024. On prior EKG there are still Q waves present in leads III and aVF although with lower voltage likely due to lead placement. Vital Signs: 08:37 BP 175 / 109; Pulse 99; Resp 17; Temp 97.4; Pulse Ox 100% on R/A; Weight 83.91 kg; ll1 Height 5 ft. 9 in. ; Pain 7/10; 08:45 BP 178 / 112; Pulse 91; Resp 16; Pulse Ox 100% ; bp 10:28 BP 170 / 114; Pulse 81; Resp 15; Pulse Ox 100% ; bp 11:58 BP 163 / 91; Pulse 78; Resp 16; Pulse Ox 100% ; bp 08:37 Body Mass Index 27.32 (83.91 kg, 175.26 cm) ll1 08:37 Pain Scale: Adult ll1 MDM: 08:32 Patient medically screened. sp3 09:13 Data reviewed: vital signs, nurses notes, old medical records, lab test result(s), EKG, sp3 radiologic studies. ED course: 58-year-old male with PMH above with chest tightness likely GI in etiology. Differential diagnosis includes esophageal spasm, gastritis, ACS spectrum, among others. We will obtain full cardiac workup, assess old EKGs and repeat troponin at 2 hours. We will reassess at that time for best course of action and disposition accordingly.. 09:22 ED course: Reviewed laboratory values, renal insufficiency is chronic and present on sp3 multiple prior labs. Symptoms are improving. Second troponin ordered and we will disposition after that result. Initial troponin is negative.. 11:46 ED course: Repeat troponin negative and patient symptoms are resolved. I advised him to sp3 follow back up with PCP. Blood pressure is tracked down.. 03/18 08:40 Order name: Basic Metabolic Panel; Complete Time: 09:21 sp3 03/18 08:40 Order name: CBC with Diff; Complete Time: 09:21 sp3 03/18 08:40 Order name: LFT's; Complete Time: 09:21 sp3 03/18 08:40 Order name: Magnesium; Complete Time: 09:21 sp3 03/18 08:40 Order name: NT PRO-BNP; Complete Time: 09:21 sp3 03/18 08:40 Order name: PT-INR; Complete Time: 09:21 sp3 03/18 08:40 Order name: Troponin HS; Complete Time: 09:21 sp3 03/18 09:21 Order name: Troponin High Sensitivity: Draw 2 hours after first; Complete Time: 11:45 sp3 03/18 08:40 Order name: XRAY Chest (1 view); Complete Time: 09:21 sp3 03/18 08:40 Order name: Cardiac monitoring; Complete Time: 08:46 sp3 03/18 08:40 Order name: EKG - Nurse/Tech; Complete Time: 08:46 03/18 08:40 Order name: IV Saline Lock; Complete Time: 08:46 3 03/18 08:40 Order name: Labs collected and sent; Complete Time: 08:46 sp3 03/18 08:40 Order name: O2 Per Protocol; Complete Time: 08:46 3 03/18 08:40 Order name: O2 Sat Monitoring; Complete Time: 08:47 03/18 09:03 Order name: PO challenge: water challenge only; Complete Time: 09:55 sp3 Administered Medications: 09:12 Drug: Ondansetron IVP 4 mg IVP once; over 2 minutes Route: IVP; Site: right antecubital;db Disposition Summary: 03/18/24 11:47 Discharge Ordered Notes: Location: Home sp3 Condition: Stable sp3 Diagnosis - Chest tightness, resolved sp3 Followup: sp3 - With: Private Physician - When: Upon discharge from the Emergency Department - Reason: Continuance of care Discharge Instructions: - Discharge Summary Sheet sp3 - Nonspecific Chest Pain, Adult sp3 Forms: - Work release form ll1 - Medication Reconciliation Form sp3 - Antibiotic Education sp3 - Prescription Opioid Use sp3 - Patient Portal Instructions sp3 - Leadership Thank You Letter sp3 Signatures: Dispatcher [employer] EDMS Geremias Ambrose, RN RN ll1 Aristides Lino MD MD sp3 Majo Francisco RN RN db Corrections: (The following items were deleted from the chart) 08:40 08:40 BASIC METABOLIC PANEL+C.LAB.BRZ ordered. EDMS EDMS 08:40 08:40 CBC+H.LAB.BRZ ordered. EDMS EDMS 08:40 08:40 HEPATIC FUNCTION+C.LAB.BRZ ordered. EDMS EDMS 08:40 08:40 MAGNESIUM+C.LAB.BRZ ordered. EDMS EDMS 08:40 08:40 PROBNP+C.LAB.BRZ ordered. EDMS EDMS 08:40 08:40 PROTIME (+INR)+COAG.LAB.BRZ ordered. EDMS EDMS 08:40 08:40 Troponin High Sensitivity+C.LAB.BRZ ordered. EDMS EDMS 08:41 08:40 Chest Single View+RAD.RAD.BRZ ordered. EDMS EDMS
[2024-03-18 12:45] VITALS: BP 163/91; TEMP 97.4; O2SAT 100
--- NOTE | 2024-03-22 13:12 | EKG ---
Test Date: 2024-03-18 Test Time: 08:38:58 Contact Lens Lathe Operator: BP MEASUREMENT RESULTS: Intervals: Rate: 86 UT: 176 QRSD: 78 QT: 384 QTc: 459 [place]: P: 60 UT: 176 QRS: 42 T: 3 INTERPRETIVE STATEMENTS: Normal sinus rhythm Anterior infarct, age undetermined Abnormal ECG Compared to ECG 01/22/2024 08:18:15 Myocardial infarct finding now present Electronically Signed On 03-22-24 13:00:26 CDT by Tony Rocha
== END 2024-03-18 12:11 | disposition home or self-care (01) ==
LOC: ER 08:28
DX: R07.89 Other chest pain (principal); I10 Essential (primary) hypertension; E11.9 Type 2 diabetes mellitus without complications; E78.00 Pure hypercholesterolemia, unspecified; Z88.8 Allergy status to other drugs, medicaments and biological substances
CPT/HCPCS: 93005; 85025; 80048; 36415; 83735; 85610; 80076; 84484 ×2; 83880; 71045; J2405